=== PATIENT | female | born 1965 | race Caucasian/White ===

== ENCOUNTER 2024-04-22 09:38 | Outpatient (REF) | payer OTHER, SELFPAY ==
[2024-04-22 17:57] LABS: MANUAL DIFF FLAG NO
[2024-04-22 18:01] LABS: Basophils Percent Auto 0.9 % (0-2); Eosinophils Absolute Auto 0.1 X10*3/uL (0.0-0.4); Eosinophils Percent Auto 2.6 % (0-4); Hematocrit 39.1 % (37.0-47.0); Imm Gran Abs Auto 0.01 X10*3/uL (0.00-0.03); Imm Gran Pct Auto 0.2 % (0.0-0.4); Lymphocytes Absolute Auto 1.4 X10*3/uL (1.2-4.9); Mean Corpuscular HGB Conc 33.2 g/dl (31.0-35.0); Mean Corpuscular Hemoglobin 30.5 pg (27.0-33.0); Mean Corpuscular Volume 91.8 fL (80.0-98.0); Mean Platelet Volume 10.2 fL (9.4-12.3); Monocytes Absolute Auto 0.5 X10*3/uL (0.1-1.2); Monocytes Percent Auto 10.7 % (2-11); Neutrophils Absolute Auto 2.6 x10*3/uL (2.0-8.3); Neutrophils Percent Auto 56.6 % (45-73); Platelet Count 273 X10*3/uL (160-400); Red Blood Count 4.26 X10*6/uL (4.20-5.50); White Blood Count 4.7 X10*3/uL (4.8-10.8)
[2024-04-22 18:12] LABS: Alanine Aminotransferase 27 U/L (0-31); Aspartate Amino Transferase 31 U/L (5-31); C Reactive Protein 0.12 mg/dL (< or = 0.50); Estimated Glomerular Filt Rate > 60
[2024-04-22 18:51] LABS: Erythrocyte Sedimentation Rate 6 MM/HR (0-20)
[2024-04-23 04:26] LABS: HBS Num1 0.29 mIU/mL (0-7.99); HBc Num1 0.07 S/CO (0.00-0.79); HBsAGNum1 0.34 S/CO (0.00-0.99); Hepatitis B Core Antibody Nonreactive (Nonreactive); Hepatitis B Surface Antigen Negative (Negative); ~HepC Num1 0.07 S/CO (0.00-0.79); ~Hepatitis B Surface Antibody NONREACTIVE (Nonreactive); ~Hepatitis C Antibody Nonreactive (Nonreactive)
[2024-04-25 02:54] LABS: TS Negative Control Passed; TS Panel A 0; TS Panel B 2; TS Positive Control Passed; TSpotTB Negative (Negative)
== END 2024-04-22 09:39 | disposition home or self-care (01) ==
LOC: HO.HKASLDS 09:38
PROVIDERS: PCP Family Medicine; Visit Provider Internal Medicine Rheumatology
DX: M15.4 Erosive (osteo)arthritis (principal); Z79.899 Other long term (current) drug therapy; Z79.60 Long term (current) use of unspecified immunomodulators and immunosuppressants; Z11.59 Encounter for screening for other viral diseases; Z11.1 Encounter for screening for respiratory tuberculosis
CPT/HCPCS: 36415; 82565; 84450; 84460; 85025; 85652; 86140; 86481; 86704; 86706; 86803; 87340; 99212

== ENCOUNTER 2024-04-22 09:38 | Outpatient (AMB) | payer OTHER, SELFPAY ==
--- NOTE | 2024-04-22 09:44 | A.OFFVIS_ITS ---
Vital Signs 04/22/24 09:45 Height 5 ft 3 in Weight 178 lb BMI 31.5 BP 118/62 Blood Pressure Location Lt brachial Position Sitting Pulse 63 Pulse Source Pulse Oximeter Pulse Oximetry (%) 97 Oxygen Delivery Method Room Air Intake Visit Reasons: arthritis Intake Note: Patient presents for follow up on erosive osteoarthritis. Allergies No Known Allergies Allergy (Verified 04/22/24 09:47) HPI HPI arthritis: Details: Experiencing pain in her upper back and lower back. No radicular symptoms. She uses tizanidine 2 mg b.i.d. sometimes 5 days a week or sometimes 7 days a week it depends on her pain. She has intermittent pain in bilateral 2nd and 3rd toes. She experiences the pain as soon as she wakes up and puts her feet on the floor. She has now been wearing footwear at home to prevent foot pain. As soon as she takes Celebrex the pain subsides. No new joint swelling. [facility] Medical History (Updated 04/22/24 @ 22:06 by Wiley Damon MD) Erosive (osteo)arthritis Surgical History (Updated 04/22/24 @ 09:51 by Tara Sarabia CMA) S/P laparoscopic fundoplication Social History (Updated 04/22/24 @ 09:52 by Tara Sarabia CMA) Alcohol intake: current Alcohol intake frequency: other Comment: socially Patient Tobacco Use Status: Former Tobacco user Review of Systems Const All systems reviewed & are unremarkable except as noted in HPI and below Physical Exam Vital Signs: Last Vital Signs Pulse 63 04/22/24 09:45 BP 118/62 04/22/24 09:45 Pulse Ox 97 04/22/24 09:45 Oxygen Delivery Method Room Air 04/22/24 09:45 BMI result Body Mass Index 31.5 Const Other: General: Comfortable CVS: RRR Respiratory: clear to auscultation bilaterally. Good respiratory effort Skin: No lesions seen MSK: No tenderness of any joints in her hands. She has fusion left 3rd and 2nd right DIPJ. No synovitis. She is unable to make a full fist with her hands. Tender to palpate lumbar spinous process. Good lumbar flexion. Good cervical range of motion. Assessment & Plan Assessment & Plan (1) Erosive (osteo)arthritis: Comment: Pain is controlled on hydroxychloroquine. She has required the need to use prednisone for a few days when she has a flare. Code(s): M15.4 - Erosive (osteo)arthritis Category: Medical Plan: Continue hydroxychloroquine 300 mg daily. Requesting eye exam for hydroxychloroquine surveillance She will use prednisone 10 mg for 1-3 days for osteoarthritis flare. She currently has prescription at home. Return to clinic in 3 months (2) Other long filler cigar roller machine (current) drug therapy: Code(s): Z79.899 - Other custodial (current) drug therapy Category: Medical Plan: See above (3) Foot pain, bilateral: Comment: She is experiencing chronic pain in bilateral 2nd and 3rd toes of unclear etiology. Code(s): M79.671 - Pain in right foot; M79.672 - Pain in left foot Category: Medical Plan: X-ray bilateral feet ordered Return to clinic in 3 months (4) Low back pain: Comment: Chronic. Code(s): M54.50 - Low back pain, unspecified Category: Medical Qualifiers: Chronicity: chronic Back pain laterality: midline Sciatica presence: without sciatica Qualified Code(s): M54.50 - Low back pain, unspecified; G89.29 - Other chronic pain Plan: X-ray L-spine ordered to evaluate for spinal pathology contributing PT ordered for back strengthening Return to clinic 3 months (5) Cervicalgia: Comment: Due to myofascial strain. She has benefit on tizanidine 2 mg b.i.d. Code(s): M54.2 - Cervicalgia Category: Medical Plan: Continue tizanidine 2 mg b.i.d. Return to clinic in 3 months Orders: Orders T Spot TB Today M15.4 - Erosive (osteo)arthritis, Z79.899 - Other custodial (current) drug therapy Erythrocyte Sedimentation Rate Today M15.4 - Erosive (osteo)arthritis, Z79.899 - Other custodial (current) drug therapy Complete Blood Count Auto Diff Today Z79.60 - nursing home (current) use of unspecified immunomodulators and immunosuppressants Creatinine Today Z79.60 - intermission coordinator (current) use of unspecified immunomodulators and immunosuppressants XR foot RT 2V Today M79.671 - Pain in right foot, M79.672 - Pain in left foot XR lumbar spine 2-3V Today M54.50 - Low back pain, unspecified Hepatitis B,C Profile Today M15.4 - Erosive (osteo)arthritis, Z79.899 - Other long filler cigar roller machine (current) drug therapy C Reactive Protein Today M15.4 - Erosive (osteo)arthritis, Z79.899 - Other custodial (current) drug therapy Alanine Aminotransferase Today Z79.60 - intermission coordinator (current) use of unspecified immunomodulators and immunosuppressants Aspartate Amino Transferase Today Z79.60 - nursing home (current) use of unspecified immunomodulators and immunosuppressants XR foot LT 2V Today M79.671 - Pain in right foot, M79.672 - Pain in left foot PT Evaluation and Treatment Today M54.50 - Low back pain, unspecified Medications: New celecoxib (Celebrex) 200 mg PO BID 60 caps 2RF hydroxychloroquine 300 mg (1.5 x 200 mg) PO BID 60 tabs 11RF tizanidine 2 mg PO BID PRN 60 caps 5RF muscle pain Coding Level of Care Code Est Pt Level 4 (25074) Complex EM visit Add On G2211 Diagnoses Erosive (osteo)arthritis M15.4 Other custodial (current) drug therapy Z79.899 Foot pain, bilateral M79.671; M79.672 Chronic midline low back pain without sciatica M54.50; G89.29 Chronicity: chronic Back pain laterality: midline Sciatica presence: without sciatica Cervicalgia M54.2
[2024-04-22 09:45] VITALS: BP 118/62; PULSE 63; O2SAT 97; BMI 31.5
== END 2024-04-22 10:35 | disposition home or self-care (01) ==
PROVIDERS: PCP Family Medicine; Visit Provider Internal Medicine Rheumatology
DX: M15.4 Erosive (osteo)arthritis (principal); Z79.899 Other long term (current) drug therapy; M79.671 Pain in right foot; M79.672 Pain in left foot; M54.50 Low back pain, unspecified; G89.29 Other chronic pain; M54.2 Cervicalgia
CPT/HCPCS: 99214; G2211

== ENCOUNTER 2024-07-08 11:35 | Outpatient (REF) | payer OTHER, SELFPAY ==
--- OUTSIDE RECORDS SUMMARY | 2024-07-08 14:11 | XMS_ITS | Clinical Summary ---
Author Organization [employer] Address [address] [facility] [place] [address] Care Team Providers Care Equine Pharmacology Technician Name Role Phone Wiley Damon MD Unavailable Unavaila Elizabeth Figueroa DO Primary Care Provider Allergies No known active allergies Medications Tylenol Extra Strength 500 MG tablet TAKE 1 TABLET BY MOUTH EVERY 4 TO 6 HOURS NEEDED 2 Active biotin 1000 MCG tablet Take 1,000 mcg by mouth in the morning. Active celecoxib (CeleBREX) 200 MG capsule 1 capsule in the morning. Active hydroxychloroqu ine (Plaquenil) 200 MG tablet TAKE 1 AND 1/2 TABLETS BY MOUTH DAILY 2 Active Multiple Vitamins-Minera ls (Vitrum Senior) tablet Take 1 tablet by mouth in the morning. Active fluticasone (Flonase) 50 MCG/ACT nasal spray 1 spray in the morning. 9 Active Diclofenac Sodium 1 % gel APPLY 2 GRAMS TO AFFECTED AREA EVERY 4-6 HOURS 4 Active tiZANidine (Zanaflex) 2 MG tablet Take 2 mg by mouth if needed in the morning and at bedtime. 4 Active predniSONE (Deltasone) 10 MG tablet 4 Active predniSONE (Deltasone) 5 MG tablet TAKE 2 TABLETS BY MOUTH FOR 1 WEEK THEN 1 TABLET EVERY DAY. TAKE WITH FOOD. HOLD CELEBREX 4 Active LORazepam (Ativan) 0.5 MG tabletIndicatio ns:Anxiety Take 1 tablet (0.5 mg) by mouth if needed in the morning and at bedtime for anxiety for up to 28 days. 56 tablet 4 Active albuterol (2.5 MG/3ML) 0.083% nebulizer solutionIndicat ions:Chronic obstructive pulmonary disease, unspecified COPD type (CMS/HCC) Take 3 mL (2.5 mg) by nebulization if needed in the morning, at noon, in the evening, and at bedtime for wheezing or shortness of breath. 120 mL 4 Active traMADol (Ultram) 50 MG tablet Take 50 mg by mouth. 4 Active Nirmatrelvir&Ri tonavir 300/100 (Paxlovid, 300/100,) 20 x 150 MG & 10 x 100MG tablet therapy packIndications :2019 novel coronavirus disease (COVID-19) Take 1 Dose by mouth 2 times daily. 30 each 4 Active Additional Information Patient not taking.Reported on 06/24/2024 albuterol 108 (90 Base) MCG/ACT inhalerIndicati ons:Bronchitis INHALE 2 PUFFS BY MOUTH EVERY 6 HOURS NEEDED FOR WHEZING 8.5 g 2 5 Active Active Problems Problem Noted Date Diagnosed Date COVID-19 03/17/2024 Assessment & Plan (03/17/2024 6:24 PM EST): COVID home test positive this a.m. after attending concert in [place] on Saturday (3 days ago), feverish feeling/chills/fatigue but no n/v/d and wants Paxlovid - states worked well for her last time had Covid. No contraindications. No current COPD exacerbation. E rx sent and states her son will seed cone picker for her this evening. Akilah agrees to f/up and if symptoms progress to severe or do not improve to ER (has COPD dx but not currently needing her rescue inhaler nor neb treatments - aware to use as well as rest, hydration gargles. Encounter to establish care 12/31/2022 Assessment & Plan (12/31/2022 9:59 AM EDT): Akilah was seen today to establish care. She states she has been doing ok. She continues with ongoing pain due to OA, mostly in her hands, back, and left shoulder; she states the rainy weather has not been helping either. She states her diet is ok and her activity level is lower than it should be, she knows she should be doing more for both diet and nutrition. She states she went through menopause appx 10y ago. She does not remember her last Pap, we will obtain another one, likely at the next visit. Dr Diaz, Pulmonology follows her closely as well as GI. GI tracks her colonoscopies. She has labwork that needs to be completed from July. She states she did not fast this morning but will get to do it soon. Primary osteoarthritis, other specified site Overview (10/24/2023[facility] Erosive [facility] hands, R IP joint recurrent joint swelling, failed intraarticular joint cortisone injection, short response with prednisone. NSAID to be changed- stop celebrex, start diclofenac 50mg bid w/ food. Continue HCQ 300mg every day. Baseline eye exam 10/2019 VF. Last eye exam 08/28. OCT and visual potter normal. Chronic upper backache- controlled PT exercises and tizanidine 2mg prn. Labs ordreed for drug monitoring and xrays. Fu 3 mo. Assessment & Plan (12/31/2022 9:59 AM EDT): Continues to endorse pain throughout; mostly hands, back, and left shoulder. Continues with Tramadol as needed; she states she does not need it often. Continues with Tylenol as well. She states that she knows she needs to eat better and walk/do more activities. Adenomatous polyp of colon 08/27/2022 Irritable bowel syndrome with constipation 08/27 Overweight 08/27/2022 Hyperlipidemia 08/27/2022 Prediabetes 08/27/2022 Mood disorder 08/27/2022 Anxiety 07/09/2022 Allergic rhinitis 07/09/2022 Assessment & Plan (12/31/2022 9:51 AM EDT): Continues to endorse allergic symptoms. Continues with Flonase daily. Chronic obstructive pulmonary disease 07/09/2022 Former smoker 07/09/2022 Encounters Date Type Department Care Team Description 06/24/2024 3:00 PM EDT Office Visit [place] [facility] [address] [place] [address] Nohemy Downey, OD Superficial punctate keratitis of both eyes (Primary Dx); Posterior vitreous detachment of right eye; Retinal cyst of right eye; Vitreomacular adhesion of left eye 06/19/2024 Population Health Risk Score Community [facility] ([facility] Department [address] [place] [address] [phone] Provider, Population Health Generic 05/10/2024 Refill [facility] MED[facility] [address] [place] [address] King Elizabeth, Bronchitis 04/28/2024 Orders Only [facility] [address] [place] [address] ProviderDayanara MD 04/26/2024 Orders Only [facility] [address] [place] [address] Provider, MD Dayanara from Last 3 Months Immunizations Name Administration Dates Next Due INFLUENZA INJECTABLE QUADRIV ALANT CCIIV4 MDCK Multi-dose vial 02/19/2020 Influenza injectable quadriv alent preservative free 12/05/2022,02/23/2022 Influenza, IIV3, injectable 12/16/2020,1 ,03/05/2018,2015,12/19/2010,03/05/2007 Influenza, Injectable, MDCK, preservative free 12/25/2023 Influenza, Split (incl. jany fied surface antigen) 04/27/2013 Moderna Covid-19 Vaccine 12+ 08/11/2020 TD (adult), 2 Lf tetanus tox oid, preservative free, adsorbed 12/16/2020,11/20/2005 Tdap 04/27/2013,11/23/2010 Zoster, Recombinant 03/27/2023,12/05/2022,2021 Family History Medical History Relation Name Comments Coronary artery disease Father Cataracts Mother Ulcerative colitis Mother Mother: ? UC Breast cancer Mother's Sister Maternal Au nt: breast cancer in her 50s, diagnosed with Breast cancer Rheum arthritis Other Heart failure Paternal Grandfather Anxiety disorder Son Colon cancer Neg Hx of suicide. paternal grandmother with ?RA maternal half sister w/RA Relation Name Status Comments Father Mother Mother's Sister Other Paternal Grandfather Son Social History Tobacco Use Types Packs/Day Years Used Date Smoking Tobacco: Former Cigarettes 1 - 03/10/2021 Passive Smoke Exposure: Past Smokeless Tobacco: Never Tobacco Cessation:Counseling Given: No Alcohol Use Standard Drinks/Week Comments Yes 0 (1 standard drink = 0.6 oz pur e alcohol) once in a while Alcohol Answer Date Recorded How often do you have a drink containing alcohol ? 0 01/20/2024 How many drinks containing a lcohol do you have on a typical day when you are drinking? 0 01/20/2024 How often do you have six or more drinks on one occasion? 0 01/20/2024 Depression Answer Date Recorded Patient Health Questionnaire-9 Score 21 07/06/2022 Housing Stability Answer Date Recorded What is your housing situation today? I have oleg smith 01/20/[address] you li ve. Do you have problems with any of the following? None of the above 01/20/2024 Food Insecurity Answer Date Recorded Within the past 12 months, y ou worried that your food would run out before you got money to buy more: Never True 01/20/2024 Within the past 12 months,th e food you bought just didn't last and you didn't have enough money to get more: Never True Transportation Answer Date Recorded In the past 12 months, has l ack of transportation kept you from medical appts, meetings, work or from getting things needed for daily living? No 01/20/2024 Intimate Partner Violence Answer Date R ecorded Within the last year, have y ou been afraid of your partner or ex-partner? 2 01/20/2024 Within the last year, have y ou been humiliated or emotionally abused in other ways by your partner or ex-partner? 2 Within the last year, have y ou been kicked, hit, slapped, or otherwise physically hurt by your partner or ex-partner? 2 01/20/2024 Within the last year, have y ou been raped or forced to have any kind of sexual activity by your partner or ex-partner? 2 01/20/2024 Utilities Answer Date Recorded In the past 12 months, has t he electric, gas, oil or water company threatened to shut off services in your home? No 01/20/2024 Depression Answer Date Recorded Patient Health Questionnaire-2 Score 0 01/20/2024 Internet Access Answer Date Recorded Internet Access Q1 Yes 01/20/2024 Internet Access Q2 Not on file 01/20/2024 Education Answer Date Recorded What is the highest level of school you have completed or the highest degree you have received? 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 Not on file Not on file Not on file Last Filed Vital Signs Vital Sign Reading Time Taken Comments Blood Pressure 118/82 01/20/2024 8:20 AM EDT Pulse 71 01/20/2024 8:20 AM EDT Temperature 36.3 ??C (97.3 ??F) 01/20/2024 8:20 AM ED T Respiratory Rate 16 07/06/2022 11:34 AM EDT Oxygen Saturation 95% 01/20/2024 8:20 AM EDT Inhaled Oxygen Concentration - - Weight 78.3 kg (172 lb 9.6 oz) 01/20/2024 8:20 A M EDT Height 161.3 cm (5' 3.5 ) 01/20/2024 8:20 AM EDT Body Mass Index 30.1 01/20/2024 8:20 AM EDT Plan of Treatment Upcoming Encounters Date Type Department Care Team (Late st Contact Info) Description 08/27/2024 10:00 AM EDT Office Visit [place] [facility] [address] [place] [address] Nohemy Downey OD [address] [place] [address] Health Maintenance Due Date Last Done Comments CT Colonography 1966 FIT DNA/Cologuard 1966 FIT 1966 FOBT 1966 HIV Screening 1966 Sigmoidoscopy 1966 Hepatitis A Vaccines (1 of 2 - Risk 2-dose series) 1985 Hepatitis B Vaccines (1 of 3 - 19+ 3-dose series) 1985 Pneumococcal Vaccine: 50+ Years (1 of 2 - PCV) 1985 HPV/Cotest 1996 Dental X-Ray: Full Mouth 06/04/2022 020, 03/01/2014, 07/17/2005 Dental Oral Exam 04/28/2023 10/25/2022, , 10/20/2021, Additional history exists Dental Prophylaxis 04/28/2023 10/25/2022, 0 04/26/2022, 10/20/2021, Additional history exists Dental X-Ray: Bitewings 10/27/2023 10/26/19 23, 10/20/2021, 06/03/2019, Additional history exists COVID-19 Vaccine ( season) 2023 03/06/2023, 02/23/2022, 06/23/2021, Additional history exists Depression Monitoring (PHQ-9) 07/20/2024 01/20/2024, 07/06/2022 Cervical Cancer Screening 08/22/2024 Pap Smear 08/22/2024 08/22/2021 Alcohol/Substance Use Screening 01/19/2025 01/20/2024 Depression Screening 01/19/2025 01/20/2024, 07/07/19 23 Diabetes: Hemoglobin A1C 01/19/2025 024, 02/23/2022, 08/07/2021, Additional history exists SDOH Screening 01/19/2025 01/20/2024 Tobacco Screening 06/24/2025 06/24/2024 Mammogram 02/17/2026 02/18/2024, 06/0 10/2021, 09/12/2021, Additional history exists Colonoscopy 11/02/2029 11/03/2019, 10/07, 06/18/2016 Colorectal Cancer Screening 11/02/2029 DTaP/Tdap/Td Vaccines (4 - Td or Tdap) 12/16/2030 12/16/2020, 04/27/2013, 11/23/2010, Additional history exists RSV Patients and Patients Aged 60 years or older (1 - 1-dose 75+ series) 2041 Hepatitis C Screening Completed 10/15/2016 Zoster Vaccines Completed 03/27/2023, 11/08, 06/23/2021 Influenza Vaccine Completed 12/25/2023, , 02/23/2022, Additional history exists HIB Vaccines Aged Out No longer eligi ble based on patient's age to complete this topic HPV Vaccines Aged Out No longer eligi ble based on patient's age to complete this topic IPV Vaccines Aged Out No longer eligi ble based on patient's age to complete this topic Meningococcal Vaccine Aged Out No peter luz elena eligible based on patient's age to complete this topic RSV under 20 months Aged Out No longe r eligible based on patient's age to complete this topic Rotavirus Vaccines Aged Out No longer eligible based on patient's age to complete this topic Procedures Procedure Name Priority Date/Time Associated Diagnosis Comments OCT, RETINA - OU - BOTH EYES Routine 06/24/2024 Vitreomacular adhesion of left eye T-SPOT(R).TB Routine 04/22/2024 6:51 PM EST CREATININE, SERUM Routine 04/22/2024 8:4 6 AM EST AST Routine 04/22/2024 8:46 AM EST ALT Routine 04/22/2024 8:46 AM EST C-REACTIVE PROTEIN Routine 04/22/2024 8: 46 AM EST CBC WITH AUTO DIFFERENTIAL Routine 04/22/2024 8:46 AM EST SED RATE BY MODIFIED WESTERGREN Routine 04/22/2024 8:46 AM EST BI MAMMOGRAM SCREENING TOMOSYNTHESIS BILATERAL Routine 02/18/2024 10:58 AM EST POCT GLYCOSYLATED HEMOGLOBIN (HGB A1C) Routine 01/20/2024 8:45 AM EDT Prediabetes Full PROPHYLAXIS - ADULT Routine 10/25/2022 2:00 PM EDT BITEWINGS - 4 RADIOGRAPHIC IMAGES Routine 10/25/2022 2:00 PM EDT PERIODIC ORAL EVALUATION - ESTABLISHED PATIENT Routine 10/25/2022 2:00 PM EDT HM PAP/HPV Routine 08/22/2021 HM COLONOSCOPY Routine 11/03/2019 INTRAORAL - COMPLETE SERIES OF RADIOGRAPHIC IMAGES Routine 06/03/2019 12:00 AM EST HEPATITIS C ANTIBODY (EXTERNAL RESULTS ONLY) Routine 10/15/2016 1:46 PM EDT from Last 3 Months or Most Recently Relevant to Health Maintenance Results * OCT, Retina - OU - Both Eyes (06/24/2024) Impressions CooperhuyNohemy, OD - 06/24/2024 Right eye (OD): Complete PVD. 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 New finding compared to previous scan. Left eye (OS): Vitreomacular traction at fovea without any disruption to foveal contour. Progressed from previous. Result [facility] Nohemy Downey OD OPHTH TOMOGRAPHY Final Result * T-SPOT??.TB (04/22/2024 6:51 PM EST) Result [facility] Provider MD LAB BLOOD ORDERABLES Liza l Result * Creatinine, Serum (04/22/2024 8:46 AM EST) Blood Result [facility] Provider MD LAB BLOOD ORDERABLES Liza l Result * CBC auto differential (04/22/2024 8:46 AM EST) Blood Venous blood specimen / Unknown Result [facility] Provider MD LAB BLOOD ORDERABLES Liza l Result * Sed Rate by Modified Westergren (04/22/2024 8:46 AM EST) Blood Venous blood specimen / Unknown Result [facility] Provider MD LAB BLOOD ORDERABLES Liza l Result * C-reactive Protein (04/22/2024 8:46 AM EST) Blood Venous blood specimen / Unknown us Historical Provider LAB BLOOD ORDERABLES Liza l Result * ALT (04/22/2024 8:46 AM EST) Blood Venous blood specimen / Unknown Historical Provider LAB BLOOD ORDERABLES Liza l Result * AST (04/22/2024 8:46 AM EST) Blood Venous blood specimen / Unknown Historical Provider LAB BLOOD ORDERABLES Liza l Result * BI Mammogram Screening Tomosynthesis Bilateral (02/18/2024 10:58 AM EST) Anatomical Region Laterality Modality Breast Bilateral Mammography 02/18/2024 10:5 8 AM EST Narrative 02/18/2024 5:07 PM EST PROCEDURE: MM Digital Mammo Screening INDICATION: Screening for breast cancer. No known palpable abnormalities. COMPARISON: A few prior comparison studies, most recent on 09/12/2021 TECHNIQUE: Full-field digital CC and MLO 3D tomosynthesis images of both breasts were acquired. Computer-aided detection (CAD) was utilized in the interpretation of this study. DENSITY: There are scattered areas of fibroglandular density. FINDINGS: No suspicious masses, suspicious microcalcifications, or areas of architectural distortion are seen in either breast to suggest malignancy. IMPRESSION: No mammographic evidence of malignancy. RECOMMENDATION: Annual mammographic screening BI-RADS: 1 (Negative) Lay letter mailed to patient WSN: [id number] Ordering Physician: Alejandra Steen Dictated By: ?Julia Calero MD Dictated Date/Time: ?02/18/24 5:04 pm Reviewed By: ?Julia Calero MD Signed By: ? Julia Calero MD Signed Date/Time: ? 02/18/24 5:04 pm Transcribed By: ? CSB Plant Electrician Date/Time: ? 02/18/24 5:01 pm Birads: Procedure Note Rich, Image - 02/18/2024 PROCEDURE: MM Digital Mammo Screening INDICATION: Screening for breast cancer. No known palpableabnormalities. COMPARISON: A few prior comparison studies, most recent on 09/12/2021 TECHNIQUE: Full-field digital CC and MLO 3D tomosynthesis images of bothbreasts were acquired. Computer-aided detection (CAD) was utilized in theinterpretation of this study. DENSITY: There are scattered areas of fibroglandular density. FINDINGS: No suspicious masses, suspicious microcalcifications, or areasof architectural distortion are seen in either breast to suggestmalignancy. IMPRESSION: No mammographic evidence of malignancy. RECOMMENDATION: Annual mammographic screening BI-RADS: 1 (Negative) Lay letter mailed to patient WSN: [id number] Ordering Physician: Alejandra Steen Dictated By: Julia Calero MD Dictated Date/Time: 02/18/24 5:04 pm Reviewed By: Julia Calero MD Signed By: Julia Calero MD Signed Date/Time: 02/18/24 5:04 pm Transcribed By: GABRIEL Plant Electrician Date/Time: 02/18/24 5:01 pm Birads: Alejandra Steen COMMODITIES CLERK IMG BI PROCEDURES Liza l Result * (ABNORMAL) POCT glycosylated hemoglobin (Hgb A1c) (01/20/2024 8:45 AM EDT) Hemoglobin A1C 5.7 4.0 - 6.0 % Blood Capillary blood specimen / Unknown 01/20/2024 8:45 AM EDT Elizabeth Estrada DO POINT OF CARE TEST ENTER/EDIT ORDERABLES Final Result * Pap Smear (08/22/2021) Pap smear Pap negative, HPV negative Historical Provider HEALTH MAINTENANCE Final Result * (ABNORMAL) Colonoscopy (11/03/2019) Colonoscopy Abnormal(A ) Normal Historical Provider HEALTH MAINTENANCE Final Result * Hepatitis C Antibody (10/15/2016 1:46 PM EDT) Hepatitis C Antibody Nonreactive Blood 10/15/2016 1:46 PM EDT Historical Provider POINT OF CARE TEST ENTER/ EDIT ORDERABLES Final Result from Last 3 Months or Most Recently Relevant to Health Maintenance Insurance [facility] Care Teams Equine Pharmacology Technician Relationship Specialty Start Date End Date Elizabeth Estrada DO [address] [place] [address] PCP - General Family Medicine 12/06/23 Wiley Damon MD [address] [place] [phone] Rheumatology 10/23/23
--- OUTSIDE RECORDS SUMMARY | 2024-07-08 14:11 | XMS_ITS | Encounter Summary ---
Author Organization [employer] Address [address] [address] [place] [address] Care Team Providers Care Lead Network Engineer Name Role Phone Wiley Damon MD Unavailable Unavaila ble Elizabeth Estrada DO Primary Care Provider [phone] Encounter Details Date Type Department Care Team (Late st Contact Info) Description 01/25/2024 Orders Only [place] [facility] [address] [place] [address] Elizabeth Estrada DO [address] [place] [address] Social History Tobacco Use Types Packs/Day Years Used Date Smoking Tobacco: Former Cigarettes 1 - 03/10/2021 Smokeless Tobacco: Never Alcohol Use Standard Drinks/Week Comments Yes 0 [...] received? 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 Not on file Not on file Not on file documented as of this encounter Plan of Treatment Upcoming Encounters Date Type Department Care Team (Late st Contact Info) Description 08/27/2024 10:00 AM EDT Office Visit [place] [facility] [address] [place] [address] Nohemy Downey OD [address] [place] [address] documented as of this encounter Procedures Procedure Name Priority Date/Time Associated Diagnosis Comments BI MAMMOGRAM SCREENING TOMOSYNTHESIS BILATERAL Routine 02/18/2024 10:58 AM EST CBC WITH AUTO DIFFERENTIAL Routine 10/17/2023 8:59 AM EDT documented in this encounter Results * BI Mammogram Screening Tomosynthesis Bilateral (02/18/2024 [...] (Negative) Lay letter mailed to patient WSN: [id number] Ordering Physician: Alejandra Steen Dictated By: ?Julia Calero MD Dictated Date/Time: ?02/18/24 5:04 pm Reviewed By: ?Julia Calero MD Signed By: ? Julia Calero MD Signed Date/Time: ? 02/18/24 5:04 pm Transcribed By: ? CSB Treating Machine Operator Date/Time: ? 02/18/24 5:01 pm Birads: Procedure Note Donotuseinterpreter, Image - 02/18/2024 PROCEDURE: MM Digital Mammo [...] (Negative) Lay letter mailed to patient WSN: [id number] Ordering Physician: Alejandra Steen Dictated By: Julia Calero MD Dictated Date/Time: 02/18/24 5:04 pm Reviewed By: Julia Calero MD Signed By: Julia Calero MD Signed Date/Time: 02/18/24 5:04 pm Transcribed By: GABRIEL Treating Machine Operator Date/Time: 02/18/24 5:01 pm Birads: Alejandra Steen SPRINKLER HELPER IMG BI PROCEDURES Liza l Result * CBC auto differential (10/17/2023 8:59 AM EDT) Blood Venous blood specimen / Unknown us Elizabeth Estrada DO LAB BLOOD ORDERABLES Final Res ult documented in this encounter Visit Diagnoses Not on filedocumented in this encounter Additional Health Concerns Assessment Noted Time PHQ-9 Depression Total Score: 21 07/06/ 023 11:43 AM EDT documented as of this encounter Care Teams Lead Network Engineer Relationship Specialty Start Date End Date Elizabeth Estrada DO [address] [place] [address] PCP - General Family Medicine 12/06/23 Wiley Damon MD [address] [place] [phone] Rheumatology 10/23/23 documented as of this encounter
--- OUTSIDE RECORDS SUMMARY | 2024-07-08 14:11 | XMS_ITS | Encounter Summary ---
Author Organization [employer] Address [address] [facility] 7t [place] [address] Care Team Providers Care Vice President Sales Name Role Phone Wiley Damon MD Unavailable Unavaila ble Elizabeth Estrada DO Primary Care Provider [phone] Reason for Visit * Reason Onset Date Comments Flu Symptoms 03/30/2024 Covid positive 03/30/2024 Encounter Details Date Type Department Care Team (Late st Contact Info) Description 03/30/2024 Telephone [facility] MEDICAL [address] [place] [address] Elizabeth Estrada DO [address] [place] [address] Flu Symptoms; Covid positive Social History Tobacco Use Types Packs/Day Years Used Date Smoking Tobacco: Former Cigarettes 1 - 03/10/2021 Passive Smoke Exposure: Past Smokeless Tobacco: Never Alcohol Use Standard Drinks/Week [...] t he electric, gas, oil or water [facility] threatened to shut off services in your [...] Start Date Job End Date 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 Estrada at 1045. + Covid. * Telephone Encounter - Therese Kemp - 03/30/2024 8:02 AM EST Patient calling reporting sick symptoms. Symptom onset date: 03/29 Symptoms include: Fever or chills, cough, shortness of breath, fatigue, new loss of taste or smell,and congestion or runny nose Patient denies sick contacts. Testing performed at home: covid test: positive on 03/30 Telehealth visit scheduled for 03/30 with [facility]. Telephone encounter routed to nursing triage for review; nursing to review and sign encounter if timeline is appropriate or modify plan if clinically necessary. Preferred phone number confirmed, ending in [phone]. If necessary, patient confirms that it is ok fornursing to leave detailed voicemail on this number. documented in this encounter Plan of Treatment Upcoming Encounters Date Type Department Care Team (Late st Contact Info) Description 08/27/2024 10:00 AM EDT Office Visit [place] [facility] OPTOMETRY [address] [place] [address] Nohemy Downey OD [address] [place] [address] documented as of this encounter Visit Diagnoses Not on filedocumented in this encounter Additional Health Concerns Assessment Noted Time PHQ-9 Depression Total Score: 21 023 11:43 AM EDT documented as of this encounter Care Teams Vice President Sales Relationship Specialty Start Date End Date Elizabeth Estrada DO [address] [place] [address] PCP - General Family Medicine 12/06/23 Wiley Damon MD [address] [place] [phone] Rheumatology 10/23/23 documented as of this encounter
--- OUTSIDE RECORDS SUMMARY | 2024-07-08 14:11 | XMS_ITS | Patient Health Record ---
Author Organization [facility] Address [address] [place] [phone] Care Team Providers Care Pourer Metal Name Role Phone Eliane Bourne Primary Care Provider Unavaila Song Ramires Unavailable [phone] Allergies No Known Allergies Reason For Referral No Information Medications Medication SIG (Take, Route, Frequency, Duration) Notes Start Date End Date Status Baclofen 10 MG TAKE 1 TABLET BY MOUTH EVERY NIGHT AT BEDTIME Oral for 30 Active Incruse Ellipta 62.5 MCG/ACT Inhalation for 30 Active Albuterol Sulfate HFA 108 (90 Base) MCG/ACT INHALE 2 PUFFS BY MOUTH EVERY 6 HOURS NEEDED FOR WHEEZING Inhalation for 25 J40,Unavailab le Active Hydroxychloroquine Sulfate 200 MG Oral for 90 Active Celecoxib 200 MG Oral for 90 A ctive Flovent HFA 110 MCG/ACT Inhalation for 30 Active Immunizations Vaccine Route Administration Date Status Comme nts Influenza Unknown 12/18/2022 Administered Social History Tobacco Use: Social History Observation Description Date Details (start date - stop date) Former Smoker NA - NA Tobacco Use/Smoking Question Answer Notes Patient is a former smoker Alcohol Screen Question Answer Notes Did you have a drink contain ing alcohol in the past year? Yes How often did you have a dri nk containing alcohol in the past year? 2 to 4 times a month (2 points) How many drinks did you have on a typical day when you were drinking in the past year? 3 or 4 drinks (1 point) How often did you have 6 or more drinks on one occasion in the past year? 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 Problem 04662369 Constipation, unspecified constipation type (K59.00) Active confirmed Plan Of Treatment No Information Insurance Providers Payer Name Payer Address Payer Phone Subscriber Number Group Number Insured Name Patient Relationship to Insured Coverage Start Date Coverage End Date MEDICARE OF [place] [address] BILL FERMIN [address] [id number] CESARIO SCHWAB Self - patient is the insured MEDICAID OF [facility] [address] [place] [address] [id number] CESARIO SCHWAB Self - patient is the insured Medical (General) History Medical History History ICD Code Denies NV,DM,CVA,Lung disease,renal dise ase Erosive osteoarthritis COPD 3 negative colonoscopies Curiel's esophagus/GERD Constipation Surgical History Surgery Date(Month/Year) Fundoplication hiatal hernia Dr. Edvin porter 2019
--- OUTSIDE RECORDS SUMMARY | 2024-07-08 14:11 | XMS_ITS ---
Author Organization [facility] Address [address] [place] [address] Care Team Providers Care Icu Tech Name Role Phone Eliane Bourne Primary Care Provider Song Sandoval [phone] REASON FOR VISIT cancel appt Encounters Encounter Location Date Provider Diagnosis [facility] [address] [place] [address] 07/01/2023 Song Villar Plan Of Treatment No Information Progress Notes * ZAHEERSHANDA RosalesFAMDOB: [birth year] (58 yo F)Acc No.[id number]:07/01/2023 Patient:?CESARIO SCHWAB :1965???Age:58 Y???Sex:Female Address:[address] [place] [address] , [place], [address] * true * Date:? Generated for Printi paulina/Lee/eTransmitting on:?07/08/2024 02:10 PM EDT
--- OUTSIDE RECORDS SUMMARY | 2024-07-08 14:11 | XMS_ITS ---
Author Organization [facility] Address [address] [place] [phone] Care Team Providers Care Parent Coach Name Role Phone Eliane Bourne Primary Care Provider Song Sandoval [phone] REASON FOR VISIT Patient presents today for IBS Encounters Encounter Location Date Provider Diagnosis [facility] [address] [facility] [address] [place] [phone] 07/02/2023 Song Villar Plan Of Treatment No Information Progress Notes * CESARIO SCHWABDOB: [birth year] (59 yo F)Acc No.[id number]:07/02/2023 Progress Notes Patient:?CESARIO SCHWAB Provider:?Song Villar MD :1965???Age:58 Y???Sex:Female D ate:07/02/2023 Address:[address] [place], [place] [id number] Pcp:Lidya Pelayo Subjective: * Chief Complaints: * ???1. Patient presents today for IBS. * Medical History:? Objective: * Vitals:? Assessment: Plan: * Treatment: * * The named appointment provid er may or may not be the originator of this progress note, and it is not deemed complete until electronically signed by the appointment provider. Sign off status: Pending * Provider:?Song Villar MD Date:? 024 Generated for Jci ng/Fajadeng/eTransmitting on:?07/08/2024 02:10 PM EDT
--- OUTSIDE RECORDS SUMMARY | 2024-07-08 14:11 | XMS_ITS | Encounter Summary ---
Author Organization [employer] Address [address] [facility] 7t [place] [address] Care Team Providers Care Car Body Inspector Name Role Phone Anjelica Harris Primary Care Provider Un available Eliane Lora Primary Care Provider Wiley Winters MD Unavailable Elizabeth Gu DO Primary Care Provider [phone] Encounter Details Date Type Department Care Team (Latest Contact Info) Description 06/03/2019 Abstract [facility] Dental, Provider, DDS Social History Tobacco Use Types Packs/Day Years Used Date Smoking Tobacco: Never Assessed Comments Unknown Sex and Gender Information Value Date Recorded Sex Assigned at Female 02/23/2022 9:14 AM EST Legal Sex Female 5:35 PM EDT Gender Identity Female 02/23/2022 9:14 AM EST Sexual Orientation Choose not to disclose 2022 3:13 PM EST documented as of this encounter Plan of Treatment Upcoming Encounters Date Type Department Care Team (Late st Contact Info) Description 08/27/2024 10:00 AM EDT Office Visit [place] [facility] OPTOMETRY [address] [place] [address] Nohemy Downey OD [address] [place] [address] documented as of this encounter Visit Diagnoses Not on filedocumented in this encounter Care Teams Car Body Inspector Relationship Specialty Start Date End Date Anjelica Harris FNP PCP - General Family Medicine 02/23/22 12/30/22 Eliane Lora PA PCP - General Family Medicine 12/31/22 12/05/23 Elizabeth Estrada DO [address] [place] [address] PCP - General Family Medicine 12/06/23 Wiley Damon MD [address] [place] [address] Rheumatology 10/23/23 documented as of this encounter
--- OUTSIDE RECORDS SUMMARY | 2024-07-08 14:11 | XMS_ITS | Encounter Summary ---
Author Organization [employer] Address [address] [facility] [address] [facility] [address] 7[address] [place] [address] Care Team Providers Care Carpenter'S Assistant Name Role Phone Sophialilly Anjelicavasyl CURIEL Primary Care Provider Un available Eliane Lora Primary Care Provider Wiley Winters MD Unavailable Elizabeth Gu DO Primary Care Provider [phone] Encounter Details Date Type Department Care Team (Late st Contact Info) Description 07/31/2022 Abstract [place] [facility] MEDICAL [address] [place] [address] Hyun Mace, TELETYPE OR VARITYPE KEYBOARD OPERATOR [address] [place] [address] Social History Tobacco Use Types Packs/Day Years Used Date Smoking Tobacco: Former Cigarettes 1 - 03/10/2022 Smokeless Tobacco: Never Alcohol Use Standard Drinks/Week Comments Never 0 (1 standard drink = 0.6 oz pur e alcohol) Depression Answer Date Recorded Patient Health Questionnaire-9 Score 21 07/06/2022 Depression Answer Date Recorded Patient Health Questionnaire-2 Score 3 07/06/2022 Comments Unknown Sex and Gender Information Value Date Recorded Sex Assigned at Female 02/23/2022 9:14 AM EST Legal Sex Female 5:35 PM EDT Gender Identity Female 02/23/2022 9:14 AM EST Sexual Orientation Choose not to disclose 2022 3:13 PM EST Occupation Industry Job Start Date Job End Date 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 No / Unsure 07/31/2022 5:24 PM EDT documented as of this encounter Plan of Treatment Upcoming Encounters Date Type Department Care Team (Late st Contact Info) Description 08/27/2024 10:00 AM EDT Office Visit [place] [facility] OPTOMETRY [address] [place] [address] Nohemy Downey OD [address] [place] [address] documented as of this encounter Visit Diagnoses Not on filedocumented in this encounter Additional Health Concerns Assessment Noted Time PHQ-9 Depression Total Score: 21 023 11:43 AM EDT documented as of this encounter Care Teams Carpenter'S Assistant Relationship Specialty Start Date End Date Anjelica Harris FNP PCP - General Family Medicine 02/23/22 12/30/22 Eliane Lora PA PCP - General Family Medicine 12/31/22 12/05/23 Elizabeth Estrada DO [address] [place] [address] PCP - General Family Medicine 12/06/23 Wiley Damon MD [address] [place] [address] Rheumatology 10/23/23 documented as of this encounter
--- OUTSIDE RECORDS SUMMARY | 2024-07-08 14:11 | XMS_ITS | Encounter Summary ---
Author Organization [employer] Address 75 [facility] 7t [place] [address] Care Team Providers Care Warp Drawer Name Role Phone Anjelica Harris Primary Care Provider Un available Eliane Lora Primary Care Provider Wiley Winters MD Unavailable Elizabeth Gu DO Primary Care Provider [phone] Encounter Details Date Type Department Care Team (Latest Contact Info) Description 10/20/2021 Abstract [facility] Dental, Provider, DDS Social [...] Description 08/27/2024 10:00 AM EDT Office Visit [place] [facility] OPTOMETRY [address] [place] [address] Nohemy Downey OD [address] [place] [address] documented as of this encounter Visit Diagnoses Not on filedocumented in this encounter Care Teams Warp Drawer Relationship Specialty Start Date End Date Anjelica Harris FNP PCP - General Family Medicine 02/23/22 12/30/22 Eliane Lora PA PCP - General Family Medicine 12/31/22 12/05/23 Elizabeth Estrada DO [address] [place] [address] PCP - General Family Medicine 12/06/23 Wiley Damon MD [address] [place] [address] Rheumatology 10/23/23 documented as of this encounter
--- OUTSIDE RECORDS SUMMARY | 2024-07-08 14:11 | XMS_ITS | Encounter Summary ---
Author Organization [employer] Address [address] 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 Not on file Not on file Not on file documented as of this encounter Plan of Treatment Upcoming Encounters Date Type Department Care Team (Late st Contact Info) Description 08/27/2024 10:00 AM EDT Office Visit [place] [facility] OPTOMETRY [address] [place] [address] Nohemy Downey OD [address] [place] [address] documented as of this encounter Procedures Procedure Name Priority Date/Time Associated Diagnosis Comments CREATININE, SERUM Routine 04/22/2024 8:4 6 AM EST CBC WITH AUTO DIFFERENTIAL Routine 04/22/2024 8:46 AM EST SED RATE BY MODIFIED WESTERGREN Routine 04/22/2024 8:46 AM EST C-REACTIVE PROTEIN Routine 04/22/2024 8: 46 AM EST ALT Routine 04/22/2024 8:46 AM EST AST Routine 04/22/2024 8:46 AM EST documented in this encounter Results * Creatinine, Serum (04/22/2024 8:46 AM EST) Blood Result [facility] Provider MD LAB BLOOD ORDERABLES Liza l Result * AST (04/22/2024 8:46 AM EST) Blood Venous blood specimen / Unknown Result [facility] Provider LAB BLOOD ORDERABLES Liza l Result * ALT (04/22/2024 8:46 AM EST) Blood Venous blood specimen / Unknown Result [facility] Provider LAB BLOOD ORDERABLES Liza l Result * C-reactive Protein (04/22/2024 8:46 AM EST) Blood Venous blood specimen / Unknown Result [facility] Provider MD LAB BLOOD ORDERABLES Liza l Result * CBC auto differential (04/22/2024 8:46 AM EST) Blood Venous blood specimen / Unknown Result [facility] Provider LAB BLOOD ORDERABLES Liza l Result * Sed Rate by Modified Westergren (04/22/2024 8:46 AM EST) Blood Venous blood specimen / Unknown Result [facility] Provider LAB BLOOD ORDERABLES Liza l Result documented in this encounter Visit Diagnoses Not on filedocumented in this encounter Additional Health Concerns Assessment Noted Time PHQ-9 Depression Total Score: 21 023 11:43 AM EDT documented as of this encounter Care Teams Asset Management Lead Relationship Specialty Start Date End Date Elizabeth Estrada DO [address] [place] [address] PCP - General Family Medicine 12/06/23 Wiley Damon MD [address] [place] [address] Rheumatology 10/23/23 documented as of this encounter
--- OUTSIDE RECORDS SUMMARY | 2024-07-08 14:11 | XMS_ITS | Encounter Summary ---
Author Organization [employer] [facility] Address 75 [facility] [address] [place] [address] Care Team Providers Care Industrial Hygenist Name Role Phone Anjelica Harris Primary Care Provider Un available Eliane Lora Primary Care Provider Wiley Winters MD Unavailable Elizabeth Gu DO Primary Care Provider [phone] Encounter Details Date Type Department Care Team (Late st Contact Info) Description 04/05/2022 Abstract [facility] MEDICAL [address] [place] [address] Anjelica Harris FNP Social History Tobacco Use Types Packs/Day Years [...] Description 08/27/2024 10:00 AM EDT Office Visit [facility] OPTOMETRY [address] [place] [address] Nohemy Downey OD [address] [place] [address] documented as of this encounter Visit Diagnoses Not on filedocumented in this encounter Care Teams Industrial Hygenist Relationship Specialty Start Date End Date Anjelica Harris FNP PCP - General Family Medicine 02/23/22 12/30/22 Eliane Lora PA PCP - General Family Medicine 12/31/22 12/05/23 Elizabeth Estrada DO [address] [place] [address] PCP - General Family Medicine 12/06/23 Wiley Damon MD [address] [place] [address] Rheumatology 10/23/23 documented as of this encounter
--- OUTSIDE RECORDS SUMMARY | 2024-07-08 14:11 | XMS_ITS | Encounter Summary ---
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 Not on file Not on file Not on file documented as of this encounter Plan of Treatment Upcoming Encounters Date Type Department Care Team (Late st Contact Info) Description 08/27/2024 10:00 AM EDT Office Visit [place] [facility] OPTOMETRY [address] [place], [place] [phone] Nohemy Downey OD [address] [place] [address] documented as of this encounter Procedures Procedure Name Priority Date/Time Associated Diagnosis Comments T-SPOT(R).TB Routine 04/22/2024 6:51 PM EST documented in this encounter Results * T-SPOT??.TB (04/22/2024 6:51 PM EST) us Historical Provider LAB BLOOD ORDERABLES Liza l Result documented in this encounter Visit Diagnoses Not on filedocumented in this encounter Additional Health Concerns Assessment Noted Time PHQ-9 Depression Total Score: 21 023 11:43 AM EDT documented as of this encounter Care Teams Tree Surgeon Helper Relationship Specialty Start Date End Date Elizabeth Estrada DO [address] [place] [address] PCP - General Family Medicine 12/06/23 Wiley Damon MD [facility] [place] [address] Rheumatology 10/23/23 documented as of this encounter
== END 2024-07-08 11:36 | disposition home or self-care (01) ==
LOC: HO.XRAY 11:35
PROVIDERS: PCP Family Medicine; Visit Provider Internal Medicine Rheumatology
DX: M79.671 Pain in right foot (principal); M79.672 Pain in left foot; M54.50 Low back pain, unspecified
CPT/HCPCS: 72100; 73620

== ENCOUNTER → 2024-07-08 11:40 | Outpatient (BNV) | payer OTHER, SELFPAY | PROVIDERS: PCP Family Medicine; Visit Provider Radiology Vascular & Interventional Radiology | DX: M51.360 Other intervertebral disc degeneration, lumbar region with discogenic back pain only (principal); M79.672 Pain in left foot; M79.671 Pain in right foot | CPT/HCPCS: 72100; 73620 ==

== ENCOUNTER 2024-08-04 09:41 | Outpatient (AMB) | payer OTHER, SELFPAY ==
--- NOTE | 2024-08-04 09:44 | MHC.OFFVIS ---
Vital Signs 08/04/24 09:49 Height 5 ft 4.17 in Weight 175 lb 14.862 oz BMI 30.0 BP 98/70 Blood Pressure Location Rt brachial Position Sitting Pulse 66 Pulse Source Pulse Oximeter Pulse Oximetry (%) 96 Oxygen Delivery Method Room Air Intake Visit Reasons: 3 Months Intake Note: Patient presents for follow up on erosive osteoarthritis. Accompanied by: Self / Same As Patient Allergies No Known Allergies Allergy (Verified 08/04/24 09:49) HPI HPI 3 Months: Details: She required prednisone on 1 occasion for right thumb swelling that is improved with taking prednisone 10 mg for 3 days. She continues to take Celebrex 200 mg twice a day. Tizanidine was not improved by insurance. She has benefit on baclofen. She continues to have lower back pain. She is not doing exercises at home. Denies radiculopathy. [facility] Medical History Erosive (osteo)arthritis Surgical History S/P laparoscopic fundoplication Social History Alcohol intake: current Alcohol intake frequency: other Comment: socially Patient Tobacco Use Status: Former Tobacco user Review of Systems Const All systems reviewed & are unremarkable except as noted in HPI and below Physical Exam Vital Signs: Last Vital Signs Pulse 66 08/04/24 09:49 BP 98/70 08/04/24 09:49 Pulse Ox 96 08/04/24 09:49 Oxygen Delivery Method Room Air 08/04/24 09:49 BMI result Body Mass Index 30.0 Const Other: General: Comfortable CVS: RRR Respiratory: clear to auscultation bilaterally. Good respiratory effort Skin: No lesions seen MSK: Right IP joint swelling and tenderness in hand. She has fusion left 3rd and 2nd right DIPJ. She can make a fist with her hands. Assessment & Plan Assessment & Plan (1) Erosive (osteo)arthritis: Comment: Pain is controlled on hydroxychloroquine. She has chronic swelling right 1st IP joint and hand. Code(s): M15.4 - Erosive (osteo)arthritis Category: Medical Plan: She will take prednisone 10 mg daily for 5 days, which she has at home. If there is no change or she does not have complete resolution of swelling, she will call office for prednisone course. Continue hydroxychloroquine 300 mg daily. Requesting eye exam for hydroxychloroquine surveillance from [facility]. She will use prednisone 10 mg 1-3 days prn joint flare Return to clinic in 3 months (2) Lumbar spondylosis: Comment: Chronic back pain. Discussed x-ray results Code(s): M47.816 - Spondylosis without myelopathy or radiculopathy, lumbar region Category: Medical Plan: PT ordered Continue Celebrex 200 mg daily and b.i.d. with increased pain Return to clinic in 3 months (3) Other middle or intermediate school principal (current) drug therapy: Code(s): Z79.899 - Other jail (current) drug therapy Category: Medical Plan: See above (4) Foot pain, bilateral: Comment: She is experiencing chronic pain in bilateral 2nd and 3rd toes likely due to early OA. Personally reviewed x-ray with patient, which reveals left DIPJ mild spurring not reported by radiologist. Code(s): M79.671 - Pain in right foot; M79.672 - Pain in left foot Category: Medical Plan: We discussed the importance of having good foot support Continue Celebrex 200 mg daily and b.i.d. with increased pain Return to clinic in 3 months (5) Cervicalgia: Comment: Due to myofascial strain. She has benefit on tizanidine 2 mg b.i.d. Code(s): M54.2 - Cervicalgia Category: Medical Plan: Continue baclofen Return to clinic in 3 months Orders: Orders Alanine Aminotransferase Today Z79.60 - senior care (current) use of unspecified immunomodulators and immunosuppressants Aspartate Amino Transferase Today Z79.60 - middle or intermediate school principal (current) use of unspecified immunomodulators and immunosuppressants Complete Blood Count Auto Diff Today Z79.60 - middle or intermediate school principal (current) use of unspecified immunomodulators and immunosuppressants Erythrocyte Sedimentation Rate Today Z79.899 - Other middle or intermediate school principal (current) drug therapy Creatinine Today Z79.60 - middle or intermediate school principal (current) use of unspecified immunomodulators and immunosuppressants C Reactive Protein Today Z79.899 - Other jail (current) drug therapy Coding Level of Care Code Est Pt Level 4 (08315) Complex EM visit Add On G2211 Diagnoses Erosive (osteo)arthritis M15.4 Lumbar spondylosis M47.816 Other middle or intermediate school principal (current) drug therapy Z79.899 Foot pain, bilateral M79.671; M79.672 Cervicalgia M54.2
[2024-08-04 09:49] VITALS: BP 98/70; PULSE 66; O2SAT 96
--- OUTSIDE RECORDS SUMMARY | 2024-08-04 10:45 | XMS_ITS | Encounter Summary ---
Author Organization [employer] Address [address] [facility] [address] [place] [address] Care Team Providers Care Drug Room Clerk Name Role Phone Wiley Damon MD Unavailable Unavaila Elizabeth Figueroa DO Primary Care Provider [phone] Encounter Details Date Type Department Care Team (Late st Contact Info) Description 04/26/[address] 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 Not on file Not on file Not on file documented as of this encounter Plan of Treatment Upcoming Encounters Date Type Department Care Team (Late st Contact Info) Description 08/27/2024 10:00 AM EDT Office Visit [place] [facility] OPTOMETRY [address] [place] [address] Nohemy Downey OD [address] [place] [address] documented as of this encounter Procedures Procedure [...] Serum (04/22/2024 8:46 AM EST) Blood Result [facility] Provider MD LAB BLOOD ORDERABLES Liza l Result * AST (04/22/2024 8:46 AM EST) Blood Venous blood specimen / Unknown Result [facility] Provider LAB BLOOD ORDERABLES Liza l Result * ALT (04/22/2024 8:46 AM EST) Blood Venous blood specimen / Unknown Result [facility] Provider LAB BLOOD ORDERABLES Liza l Result * C-reactive Protein (04/22/2024 8:46 AM EST) Blood Venous blood specimen / Unknown Result [facility] Provider MD LAB BLOOD ORDERABLES Liza l Result * CBC auto differential (04/22/2024 8:46 AM EST) Blood Venous blood specimen / Unknown Result [facility] Provider LAB BLOOD ORDERABLES Liza l Result * Sed Rate by Modified [place] (04/22/2024 8:46 AM EST) Blood Venous blood specimen / Unknown Result [facility] Provider LAB BLOOD ORDERABLES Liza l Result documented in this encounter Visit Diagnoses Not on filedocumented in this encounter Additional Health Concerns Assessment Noted Time PHQ-9 Depression Total Score: 21 023 11:43 AM EDT documented as of this encounter Care Teams Drug Room Clerk Relationship Specialty Start Date End Date Elizabeth Estrada DO [address] [place] [address] PCP - General Family Medicine 12/06/23 Wiley Damon MD [address] [place] [address] Rheumatology 10/23/23 documented as of this encounter
--- OUTSIDE RECORDS SUMMARY | 2024-08-04 10:45 | XMS_ITS | Encounter Summary ---
Author Organization [employer] Address [address] [facility] [address] 7[address] [place] [address] Care Team Providers Care Microbiological Laboratory Technician Name Role Phone Wiley Damon MD Unavailable Jaxsona Elizabeth Figueroa DO Primary Care Provider [phone] Encounter Details Date Type Department Care Team (Late st Contact Info) Description 04/28/[address] 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 Not on file Not on file Not on file documented as of this encounter Plan of Treatment Upcoming Encounters Date Type Department Care Team (Late st Contact Info) Description 08/27/2024 10:00 AM EDT Office Visit [place] [facility] OPTOMETRY [address] [place], [place] [phone] Nohemy Downey OD [address] [place] [address] documented as of this encounter Procedures Procedure [...] documented as of this encounter Care Teams Microbiological Laboratory Technician Relationship Specialty Start Date End Date Elizabeth Estrada DO [address] [place] [address] PCP - General Family Medicine 12/06/[address] [facility] [place] [address] Rheumatology 10/23/23 documented as of this encounter
--- OUTSIDE RECORDS SUMMARY | 2024-08-04 10:46 | XMS_ITS | Encounter Summary ---
Author Organization [employer] [facility] Address [address] [facility] [address] [place] [address] Care Team Providers Care Hand Miter Operator Name Role Phone Anjelica Harris Primary Care Provider Un available Eliane Lora Primary Care Provider Wiley Winters MD Unavailable Elizabeth Gu DO Primary Care Provider [phone] Encounter Details Date Type Department Care Team (Late st Contact Info) Description 04/05/2022 Abstract [facility] MEDICAL [address] [place] [address] Anjelica Harris FNP Social History Tobacco Use [...] Description 08/27/2024 10:00 AM EDT Office Visit [facility] OPTOMETRY [address] [place] [address] Nohemy Downey OD [address] [place] [address] documented as of this encounter Visit Diagnoses Not on filedocumented in this encounter Care Teams Hand Miter Operator Relationship Specialty Start Date End Date Anjelica Harris FNP PCP - General Family Medicine 02/23/22 12/30/22 Eliane Lora PA PCP - General Family Medicine 12/31/22 12/05/23 Elizabeth Estrada DO [address] [place] [address] PCP - General Family Medicine 12/06/23 Wiley Damon MD [address] [place] [address] Rheumatology 10/23/23 documented as of this encounter
--- OUTSIDE RECORDS SUMMARY | 2024-08-04 10:46 | XMS_ITS | Encounter Summary ---
Author Organization [employer] Address [address] [facility] 7t [place] [address] Care Team Providers Care Manual Lathe Operator Name Role Phone Anjelica Harris Primary Care Provider Un available Eliane Lora Primary Care Provider Wiley Winters MD Unavailable Elizabeth Gu DO Primary Care Provider [phone] Encounter Details Date Type Department Care Team [...] Description 08/27/2024 10:00 AM EDT Office Visit [place] [facility] OPTOMETRY [address] [place] [address] Nohemy Downey OD [address] [place] [address] documented as of this encounter Visit Diagnoses Not on filedocumented in this encounter Care Teams Manual Lathe Operator Relationship Specialty Start Date End Date Anjelica Harris FNP PCP - General Family Medicine 02/23/22 12/30/22 Eliane Lora PA PCP - General Family Medicine 12/31/22 12/05/23 Elizabeth Estrada DO [address] [place] [address] PCP - General Family Medicine 12/06/23 Wiley Damon MD [address] [place] [address] Rheumatology 10/23/23 documented as of this encounter
--- OUTSIDE RECORDS SUMMARY | 2024-08-04 10:46 | XMS_ITS | Encounter Summary ---
Author Organization [employer] Address [address] [facility] [facility] [address] [place] [address] Care Team Providers Care Miter Cutter Name Role Phone Sophialilly Anjelicavasyl CURIEL Primary Care Provider Un available Eliane Lora Primary Care Provider Wiley Winters MD Unavailable Elizabeth Gu DO Primary Care Provider Encounter Details Date Type Department Care Team (Late st Contact Info) Description 07/31/2022 Abstract [place] [facility] MEDICAL [address] [place] [address] Hyun Mace, ORTHO NURSE [address] [place] [address] Social History Tobacco Use Types Packs/Day Years [...] Start Date Job End Date Stay at [facility] Mom Not on file Not on file [...] 08/27/2024 10:00 AM EDT Office Visit [place] [facility] OPTOMETRY [address] [place] [address] Nohemy Downey OD [address] [place] [address] documented as of this encounter Visit Diagnoses Not on filedocumented in this encounter Additional Health Concerns Assessment Noted Time PHQ-9 Depression Total Score: 21 023 11:43 AM EDT documented as of this encounter Care Teams Miter Cutter Relationship Specialty Start Date End Date Anjelica Harris FNP PCP - General Family Medicine 02/23/22 12/30/22 Eliane Lora PA PCP - General Family Medicine 12/31/22 12/05/23 Elizabeth Estrada DO [address] [place] [address] PCP - General Family Medicine 12/06/23 Wiley Damon MD [address] [place] [address] Rheumatology 10/23/23 documented as of this encounter
--- OUTSIDE RECORDS SUMMARY | 2024-08-04 10:46 | XMS_ITS | Encounter Summary ---
Author Organization [employer] Address [address] [facility] 7t [place] [address] Care Team Providers Care Garage Door Hanger Name Role Phone Anjelica Harris Primary Care Provider Un available Eliane Lora Primary Care Provider Wiley Winters MD Unavailable Elizabeth Gu DO Primary Care Provider [phone] Encounter Details Date Type Department Care Team [...] Description 08/27/2024 10:00 AM EDT Office Visit [place] [facility] OPTOMETRY [address] [place] [address] Nohemy Downey OD [address] [place] [address] documented as of this encounter Visit Diagnoses Not on filedocumented in this encounter Care Teams Garage Door Hanger Relationship Specialty Start Date End Date Anjelica Harris FNP PCP - General Family Medicine 02/23/22 12/30/22 Eliane Lora PA PCP - General Family Medicine 12/31/22 12/05/23 Elizabeth Estrada DO [address] [place] [address] PCP - General Family Medicine 12/06/23 Wiley Damon MD [address] [place] [address] Rheumatology 10/23/23 documented as of this encounter
--- OUTSIDE RECORDS SUMMARY | 2024-08-04 10:46 | XMS_ITS | Encounter Summary ---
Author Organization [employer] Address [address] [facility] [facility] [address] [place] [address] Care Team Providers Care Electrical Equipment Assembler Name Role Phone Wiley Damon MD Unavailable Unavaila ble Elizabeth Estrada DO Primary Care Provider [phone] Encounter Details Date Type Department Care Team (Late st Contact Info) Description 01/25/2024 Orders Only [facility] [address] [place] [address] Elizabeth Estrada DO [address] [place] [address] Social History Tobacco Use Types Packs/Day Years [...] Start Date Job End Date Stay at [facility] Mom Not on file Not on file Not on file documented as of this encounter Plan of Treatment Upcoming Encounters Date Type Department Care Team (Late st Contact Info) Description 08/27/2024 10:00 AM EDT Office Visit [place] [facility] OPTOMETRY [address] [place] [address] Nohemy Downey OD [address] [place] [address] documented as of this encounter Procedures Procedure [...] (Negative) Lay letter mailed to patient WSN: [id number] Ordering Physician: Alejandra Steen Dictated By: ?Julia Calero MD Dictated Date/Time: ?02/18/24 5:04 pm Reviewed By: ?Julia Calero MD Signed By: ? Julia Calero MD Signed Date/Time: ? 02/18/24 5:04 pm Transcribed By: ? CSB Surgical Coder Date/Time: ? 02/18/24 5:01 pm Birads: Procedure [...] (Negative) Lay letter mailed to patient WSN: [id number] Ordering Physician: Alejandra Steen Dictated By: Julia Calero MD Dictated Date/Time: 02/18/24 5:04 pm Reviewed By: Julia Calero MD Signed By: Julia Calero MD Signed Date/Time: 02/18/24 5:04 pm Transcribed By: GABRIEL Surgical Coder Date/Time: 02/18/24 5:01 pm Birads: Alejandra Steen SUPERVISOR MIXING IMG BI PROCEDURES Liza l Result * [...] documented as of this encounter Care Teams Electrical Equipment Assembler Relationship Specialty Start Date End Date Elizabeth Estrada DO [address] [place] [address] PCP - General Family Medicine 12/06/23 Wiley Damon MD [address] [place] [phone] Rheumatology 10/23/23 documented as of this encounter
--- OUTSIDE RECORDS SUMMARY | 2024-08-04 10:46 | XMS_ITS | Encounter Summary ---
Author Organization [employer] Address [address] [place] [address] Care Team Providers Care Cable Cutter And Swager Name Role Phone Wiley Damon MD Unavailable Unavaila ble Elizabeth Estrada DO Primary Care Provider [phone] Encounter Details Date Type Department Care Team (Late st Contact Info) Description 07/16/2024 Orders Only [facility] [address] [place] [address] Elizabeth Estrada DO [address] [place] [address] Social History Tobacco Use Types Packs/Day Years [...] Start Date Job End Date Stay at [facility] Mom Not on file Not on file Not on file documented as of this encounter Plan of Treatment Upcoming Encounters Date Type Department Care Team (Late st Contact Info) Description 08/27/2024 10:00 AM EDT Office Visit [place] [facility] OPTOMETRY [address] [place] [address] Nohemy Downey, TYRONE [address] [place] [address] documented as of this encounter Procedures Procedure Name Priority Date/Time Associated Diagnosis Comments XR LUMBAR SPINE 2-3 VIEWS Routine 07/08/2024 10:30 AM EDT XR FOOT 1-2 VIEWS RIGHT Routine 07/08/2024 10:29 AM EDT XR FOOT 1-2 VIEWS LEFT Routine 07/08/2024 10:19 AM EDT documented in this encounter Results * XR Lumbar Spine 2-3 Views (07/08/2024 10:30 AM EDT) Anatomical Region Laterality Modality Spine, L-spine Radiographic [place]our[place] ging us Elizabeth Estrada DO IMG XR PROCEDURES Final Result * XR Foot 1-2 Views Right (07/08/2024 10:29 AM EDT) Anatomical Region Laterality Modality Lower Extremities, Foot Right Radiogra phic Imaging us Elizabeth Estrada DO IMG XR PROCEDURES Final Result * XR Foot 1-2 Views Left (07/08/2024 10:19 AM EDT) Anatomical Region Laterality Modality Lower Extremities, Foot Left Radiogra phic Imaging us Elizabeth Estrada DO IMG XR PROCEDURES Final Result documented in this encounter Visit Diagnoses Not on filedocumented in this encounter Additional Health Concerns Assessment Noted Time PHQ-9 Depression Total Score: 21 023 11:43 AM EDT documented as of this encounter Care Teams Cable Cutter And Swager Relationship Specialty Start Date End Date Elizabeth Estrada DO [address] [place] [address] PCP - General Family Medicine 12/06/23 Wiley Damon MD [address] [place] [phone] Rheumatology 10/23/23 documented as of this encounter
--- OUTSIDE RECORDS SUMMARY | 2024-08-04 10:46 | XMS_ITS | Clinical Summary ---
Author Organization [employer] Address [address] [facility] [address] [place] [address] Care Team Providers Care Manganese Breaker Name Role Phone Wiley Damon MD Unavailable Unavaila Elizabeth Figueroa DO Primary Care Provider [phone] Allergies No known active allergies Medications Tylenol Extra Strength 500 MG tablet TAKE 1 TABLET BY MOUTH EVERY 4 TO 6 HOURS NEEDED 03/19/20 22 Active biotin 1000 MCG tablet Take 1,000 mcg by mouth in the morning. Active celecoxib (CeleBREX) 200 MG capsule 1 capsule in the morning. Active hydroxychloroq uine (Plaquenil) 200 MG tablet TAKE 1 AND 1/2 TABLETS BY MOUTH DAILY 03/13/20 22 Active Multiple Vitamins-Duplin als (Vitrum Senior) tablet Take 1 tablet by mouth in the morning. Active fluticasone (Flonase) 50 MCG/ACT nasal spray 1 spray in the morning. 01/28/20 19 Active Diclofenac Sodium 1 % gel APPLY 2 GRAMS TO AFFECTED AREA EVERY 4-6 HOURS 07/16/19 24 Active tiZANidine (Zanaflex) 2 MG tablet Take 2 mg by mouth if needed in the morning and at bedtime. 06/07/19 24 Active predniSONE (Deltasone) 10 MG tablet 07/16/19 24 Active predniSONE (Deltasone) 5 MG tablet TAKE 2 TABLETS BY MOUTH FOR 1 WEEK THEN 1 TABLET EVERY DAY. TAKE WITH FOOD. HOLD CELEBREX 04/17/19 24 Active LORazepam (Ativan) 0.5 MG tabletIndicati ons:Anxiety Take 1 tablet (0.5 mg) by mouth if needed in the morning and at bedtime for anxiety for up to 28 days. 56 tablet 01/20/20 24 Active albuterol (2.5 MG/3ML) 0.083% nebulizer solutionIndica tions:Chronic obstructive pulmonary disease, unspecified COPD type (CMS/HCC) Take 3 mL (2.5 mg) by nebulization if needed in the morning, at noon, in the evening, and at bedtime for wheezing or shortness of breath. 120 mL 03/17/20 Active traMADol (Ultram) 50 MG tablet Take 50 mg by mouth. 02/27/20 Active albuterol 108 (90 Base) MCG/ACT inhalerIndicat ions:Bronchiti s INHALE 2 PUFFS BY MOUTH EVERY 6 HOURS NEEDED FOR WHEZING 8.5 g 2 07/26/19 Active baclofen (Lioresal) 10 MG tablet Take 10 mg by mouth if needed. 07/25/19 25 Active terbinafine (LamISIL) 250 MG tabletIndicati ons:Dermatophy tosis Take 1 tablet (250 mg) by mouth Once per day for 14 days. 14 tablet 08/04/19 25 2024 Active clobetasol (Temovate) 0.05 % cream Apply topically if needed in the morning and at bedtime (itching). 60 g 08/04/19 Active Nirmatrelvir&R itonavir 300/100 (Paxlovid, 300/100,) 20 x 150 MG & 10 x 100MG tablet therapy packIndication s:2019 novel coronavirus disease (COVID-19) Take 1 Dose by mouth 2 times daily. 30 each 03/30/20 24 2024 Discontinued(T herapy completed) albuterol 108 (90 Base) MCG/ACT inhalerIndicat ions:Bronchiti s INHALE 2 PUFFS BY MOUTH EVERY 6 HOURS NEEDED FOR WHEZING 8.5 g 2 05/11/19 25 2024 Discontinued Active Problems Problem Noted Date Diagnosed Date COVID-19 03/17/2024 Assessment & Plan (03/17/2024 6:24 PM EST): COVID home test positive this a.m. after attending concert in [place] on Saturday (3 days ago), feverish feeling/chills/fatigue but no n/v/d and wants Paxlovid - states worked well for her last time had Covid. No contraindications. No current COPD exacerbation. E rx sent and states her son will picked edge sewing machine operator for her this evening. Akilah agrees to [...] Encounters Date Type Department Care Team Description 08/03/2024 2:45 PM EDT Office Visit [facility] MEDICAL [address] [place] [address] Elizabeth Estrada DO Dermatophytosis (Primary Dx); Loud snoring; Chronic fatigue 08/03/2024 Travel 07/24/[address] [facility] MEDICAL [address] [place] [address] Elizabeth Estrada DO Bronchitis 07/22/2024 Telephone [facility] [address] [place] [address] Elizabeth Estrada DO Care Coordination 07/16/2024 Orders Only [facility] Information Management [address] [place] [address] Elizabeth Estrada DO 06/24/2024 3:00 PM EDT Office Visit [facility] OPTOMETRY [address] [place] [address] Nohemy Downey, OD Superficial punctate keratitis of both eyes (Primary Dx); Posterior vitreous detachment of right eye; Retinal cyst of right eye; Vitreomacular adhesion of left eye 06/19/2024 Population Health Risk Score [facility] [address] [place] [phone] Provider, Population Health Generic 05/10/[address] [facility] MEDICAL [address] [place] [address] Elizabeth Estrada DO Bronchitis from Last 3 Months Immunizations Name Administration [...] Start Date Job End Date Stay at [facility] Mom Not on file Not on file Not on file Last Filed Vital Signs Vital Sign Reading Time Taken Comments Blood Pressure 124/83 08/03/2024 2:57 PM EDT Pulse 85 08/03/2024 2:57 PM EDT Temperature 36.1 ??C (97 ??F) 08/03/2024 2:57 PM EDT Respiratory Rate 16 07/06/2022 11:34 AM EDT Oxygen Saturation 97% 08/03/2024 2:57 PM EDT Inhaled Oxygen Concentration - - Weight 79.4 kg (175 lb) 08/03/2024 2:57 PM EDT Height 160 cm (5' 3 ) 08/03/2024 2:57 PM EDT Body Mass Index 31 08/03/2024 2:57 PM EDT Plan of Treatment Upcoming Encounters Date Type Department Care Team (Late st Contact Info) Description 08/27/2024 10:00 AM EDT Office Visit [place] [facility] OPTOMETRY [address] [place], [place] [id number] Nohemy Downey, OD [address] [place] [address] Health Maintenance Due Date Last Done Comments [...] 2023 03/06/2023, 02/23/2022, 06/23/2021, Additional history exists Cervical Cancer Screening 08/22/2024 Pap Smear 08/22/2024 [...] EDT XR FOOT 1-2 VIEWS LEFT Routine 10:19 AM EDT OCT, RETINA - OU - BOTH EYES Routine 06/24/2024 Vitreomacular adhesion of left eye BI MAMMOGRAM SCREENING TOMOSYNTHESIS BILATERAL Routine 02/18/2024 [...] Recently Relevant to Health Maintenance Results * XR Lumbar Spine 2-3 Views (07/08/2024 10:30 AM EDT) Anatomical Region Laterality Modality Spine, L-spine Radiographic [place] ging [facility] DO IMG XR PROCEDURES Final Result * XR Foot 1-2 Views Right (07/08/2024 10:29 AM EDT) Anatomical Region Laterality Modality Lower Extremities, Foot Right Radiogra phic Imaging [facility] DO IMG XR PROCEDURES Final Result * XR Foot 1-2 Views Left (07/08/2024 10:19 AM EDT) Anatomical Region Laterality Modality Lower Extremities, Foot Left Radiogra phic Imaging [facility] DO IMG XR PROCEDURES Final Result * OCT, Retina - OU - Both Eyes (06/24/2024) Impressions Nohemy Downey, OD - 06/24/2024 Right eye (OD): Complete PVD. 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 New finding compared to previous scan. Left eye (OS): Vitreomacular traction at fovea without any disruption to foveal contour. Progressed from previous. us Nohemy Downey OD OPHTH TOMOGRAPHY Final Result * BI Mammogram Screening Tomosynthesis Bilateral [...] (Negative) Lay letter mailed to patient WSN: [id number] Ordering Physician: Alejandra Steen Dictated By: ?Julia Calero MD Dictated Date/Time: ?02/18/24 5:04 pm Reviewed By: ?Julia Calero MD Signed By: ? Julia Calero MD Signed Date/Time: ? 02/18/24 5:04 pm Transcribed By: ? CSB Stummel Selector Date/Time: ? 02/18/24 5:01 pm Birads: Procedure [...] (Negative) Lay letter mailed to patient WSN: [id number] Ordering Physician: Alejandra Steen Dictated By: Julia Calero MD Dictated Date/Time: 02/18/24 5:04 pm Reviewed By: Julia Calero MD Signed By: Julia Calero MD Signed Date/Time: 02/18/24 5:04 pm Transcribed By: GABRIEL Stummel Selector Date/Time: 02/18/24 5:01 pm Birads: Alejandra Steen ELOCUTION TEACHER IMG BI PROCEDURES Liza l Result * (ABNORMAL) POCT glycosylated hemoglobin (Hgb A1c) (01/20/2024 8:45 AM EDT) Pathologist [facility] Hemoglobin A1C 5.7 4.0 - 6.0 % Blood Capillary blood specimen / Unknown 01/20/2024 8:45 AM EDT Elizabeth Estrada DO POINT OF CARE TEST ENTER/EDIT ORDERABLES Final Result * Pap Smear (08/22/2021) Pathologist [facility] Pap smear Pap negative, HPV negative Historical [...] Most Recently Relevant to Health Maintenance Insurance CCA ONE CARE < 65 CCA ONE CARE < 65 Care Teams Manganese Breaker Relationship Specialty Start Date End Date Elizabeth Estrada DO [address] [place] [address] PCP - General Family Medicine 12/06/23 Wiley Damon MD [facility] [place] [address] Rheumatology 10/23/23
--- OUTSIDE RECORDS SUMMARY | 2024-08-04 10:46 | XMS_ITS | Encounter Summary ---
Author Organization [employer] Address [address] [facility] [address] [place] [address] Care Team Providers Care Bakery Chef Name Role Phone Wiley Damon MD, Alexandra DO Primary Care Provider [phone] Encounter Details Date Type Department Care Team (Latest Contact Info) Description 08/03/2024 Travel Social History Tobacco Use Types Packs/Day Years [...] Start Date Job End Date Stay at [facility] Mom Not on file Not on file Not on file documented as of this encounter Plan of Treatment Upcoming Encounters Date Type Department Care Team (Late st Contact Info) Description 08/27/2024 10:00 AM EDT Office Visit [place] [facility] OPTOMETRY [address] [place] [address] Nohemy Downey OD [address] [place] [address] documented as of this encounter Visit Diagnoses Not on filedocumented in this encounter Additional Health Concerns Assessment Noted Time PHQ-9 Depression Total Score: 21 023 11:43 AM EDT documented as of this encounter Care Teams Bakery Chef Relationship Specialty Start Date End Date Elizabeth Estrada DO [address] [place] [address] PCP - General Family Medicine 12/06/23 Wiley Damon MD [address] [place] [address] Rheumatology 10/23/23 documented as of this encounter
--- OUTSIDE RECORDS SUMMARY | 2024-08-04 10:46 | XMS_ITS | Encounter Summary ---
Author Organization [employer] Address [address] [place] [address] [address] [place] [address] Care Team Providers Care Wan Support Specialist Name Role Phone Wiley Damon MD Unavailable Unavaila ble Elizabeth Estrada DO Primary Care Provider Reason for Referral * Imaging (Routine) - Pending Review Specialty Diagnoses / Procedures Referred By Santy pinzon Referred To Contact Diagnoses Loud snoring Chronic fatigue Procedures Polysomnography Elizabeth Estrada DO [address] [place] [address] Phone: tel: fax: Referral ID Status Reason Start Date Expiration Date V isits Requested Visits Authorized [id number] Pending Review 08/03/2024 08/03/2025 1 1 Reason for Visit * Reason Comments Nail Problem Nail infection (can be fungal) start a month ago Encounter Details Date Type Department Care Team (Latest Contact Info) Description 08/03/2024 2:45 PM EDT Office Visit [place] [facility] [address] [place] [address] Elizabeth Estrada DO [address] [place] [address] Dermatophytosis (Primary Dx); Loud snoring; Chronic fatigue Social History Tobacco Use Types Packs/Day Years [...] Start Date Job End Date Stay at [facility] Mom Not on file Not on file Not on file documented as of this encounter Last Filed Vital Signs Vital Sign Reading Time Taken Comments Blood Pressure 124/83 08/03/2024 2:57 PM EDT Pulse 85 08/03/2024 2:57 PM EDT Temperature 36.1 ??C (97 ??F) 08/03/2024 2:57 PM EDT Respiratory Rate - - Oxygen Saturation 97% 08/03/2024 2:57 PM EDT Inhaled Oxygen Concentration - - Weight 79.4 kg (175 lb) 08/03/2024 2:57 PM EDT Height 160 cm (5' 3 ) 08/03/2024 2:57 PM EDT Body Mass Index 31 08/03/2024 2:57 PM EDT documented in this encounter Progress Notes * Elizabeth Estrada DO - 08/03/2024 2:45 PM EDT 08/03/24 Akilah Chavis 1965 [id number] HPI: Akilah Chavis is a 59 y.o. female here today for Nail Problem (Nail infection (can be fungal) start a month ago ). Nail Infection - Started approximately 4 to 6 weeks ago. - Initially began in the nails after skin was broken during a manicure. - Spread to fingers, head, belly, and other areas. - Itching present, with a rash noted on the thigh. - Used Clobetasol cream, which helped dry up the rash. - Super sensitive skin, with itching in various areas including the anus. - Inguinal crease is rashy and itchy. 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 - Feels like never having slept well. - Has been experiencing symptoms for a long time and suspects sleep apnea. Review of Symptoms: Per HPI Physical Exam: BP 124/83 (BP Location: Right arm, Patient Position: Sitting) Pulse 85 Temp 97 ??F (36.1 ??C) (Tympanic) Ht 5' 3 (1.6 m) Wt 175 lb (79.4 kg) SpO2 97% BMI 31.00 kg/m?? Skin - No visible lesion on the head, typical hair falls with a tiny bit of dryness, no flaking observed. Lesion observed on the thigh, described as a dry lesion. Right index fingernail margin dry and thickened nail PERTINENT LABORATORY DATA: reviewed PERTINENT IMAGING: Reviewed ASSESSMENT AND PLAN Diagnosis Plan 1. Dermatophytosis terbinafine (LamISIL) 250 MG tablet 2. Loud snoring Polysomnography Polysomnography 3. Chronic fatigue Polysomnography Polysomnography Assessment - Condition likely fungal infection, given the presentation and spread of symptoms. - Inflammation present, as indicated by the response to clobetasol. - Possible sleep apnea, based on reported symptoms of snoring and feeling unrested. Plan - Prescribe terbinafine for a duration of two weeks to address the suspected fungal infection. If symptoms do not improve by the end of the course, consider extending the treatment for an additional two weeks. - Continue using clobetasol to manage inflammation and alleviate itching. Although it does not treat the fungal infection directly, it can help reduce associated symptoms. - Consider the use of prednisone if the symptoms persist, but avoid daily use to prevent masking the effects of other treatments. - Arrange for a home polysomnography to evaluate for potential sleep apnea. The patient will be provided with the necessary equipment to monitor sleep patterns at home. If further information is needed, a follow-up in a sleep lab may be considered. Prescription - Terbinafine, 2-week course; extend for another 2 weeks if not improved - Clobetasol, steroid cream for inflammation - Prednisone, use PRN (as needed) but not daily to avoid masking effects of other treatments Appointments - Home polysomnography appointment to be scheduled. No follow-ups on file. Elizabeth Estrada DO [address] [address] documented in this encounter Plan of Treatment Upcoming Encounters Date Type Department Care Team (Late st Contact Info) Description 08/27/2024 10:00 AM EDT Office Visit [place] [facility] [address] [place] [address] Nohemy Downey, TYRONE [address] [place] [address] Scheduled Orders Name Type Priority Associated Diagnoses Orde r Schedule Polysomnography Sleep Center Routine Loud snoring Chronic fatigue Expected: 08/03/2024 (Approximate), Expires: 08/03/2025 documented as of this encounter Visit Diagnoses Diagnosis Dermatophytosis- Primary Dermatophytosis of unspecified site Loud snoring Chronic fatigue Other malaise and fatigue documented in this encounter Additional Health Concerns Assessment Noted Time PHQ-9 Depression Total Score: 21 023 11:43 AM EDT documented as of this encounter Care Teams Wan Support Specialist Relationship Specialty Start Date End Date Elizabeth Estrada DO [address] [place] [address] PCP - General Family Medicine 12/06/23 Wiley Damon MD [address] [place] [address] Rheumatology 10/23/23 documented as of this encounter
== END 2024-08-04 10:17 | disposition home or self-care (01) ==
LOC: HO.RHES 09:42
PROVIDERS: PCP Family Medicine; Visit Provider Internal Medicine Rheumatology
DX: M15.4 Erosive (osteo)arthritis (principal); M47.816 Spondylosis without myelopathy or radiculopathy, lumbar region; Z79.899 Other long term (current) drug therapy; M79.671 Pain in right foot; M79.672 Pain in left foot; M54.2 Cervicalgia
CPT/HCPCS: 99214; G2211

== ENCOUNTER 2024-08-04 09:41 | Outpatient (REF) | payer OTHER, SELFPAY ==
--- OUTSIDE RECORDS SUMMARY | 2024-08-04 11:47 | XMS_ITS | Encounter Summary ---
Author Organization [employer] Address [address] [facility] [address] [place] [address] Care Team Providers Care Automotive Engineering Technician Name Role Phone Wiley Damon MD Unavailable Unavaila ble Elizabeth Estrdaa DO Primary Care Provider [phone] Encounter Details Date Type Department Care Team (Late st Contact Info) Description 01/25/2024 Orders Only [facility] [address] [place] [address] Elizabeth Estrada DO [address] [place] [address] Social History Tobacco Use Types Packs/Day Years [...] Start Date Job End Date Stay at [facility] Mom Not on file Not on file Not on file documented as of this encounter Plan of Treatment Upcoming Encounters Date Type Department Care Team (Late st Contact Info) Description 08/27/2024 10:00 AM EDT Office Visit [place] [facility] [address] [place] [address] Nohemy Downey OD [address] [place] [address] documented as of this encounter Procedures Procedure [...] (Negative) Lay letter mailed to patient WSN: [id number] Ordering Physician: Alejandra Steen Dictated By: ?Julia Calero MD Dictated Date/Time: ?02/18/24 5:04 pm Reviewed By: ?Julia Calero MD Signed By: ? Julia Calero MD Signed Date/Time: ? 02/18/24 5:04 pm Transcribed By: ? CSB Bail Bondsman Date/Time: ? 02/18/24 5:01 pm Birads: Procedure [...] (Negative) Lay letter mailed to patient WSN: [id number] Ordering Physician: Alejandra Steen Dictated By: Julia Calero MD Dictated Date/Time: 02/18/24 5:04 pm Reviewed By: Julia Calero MD Signed By: Julia Calero MD Signed Date/Time: 02/18/24 5:04 pm Transcribed By: GABRIEL Bail Bondsman Date/Time: 02/18/24 5:01 pm Birads: Alejandra Steen STAFF ELECTRONIC WARFARE OFFICER IMG BI PROCEDURES Liza l Result * [...] documented as of this encounter Care Teams Automotive Engineering Technician Relationship Specialty Start Date End Date Elizabeth Estrada DO [address] [place] [address] PCP - General Family Medicine 12/06/23 Wiley Damon MD [address] [place] [phone] Rheumatology 10/23/23 documented as of this encounter
--- OUTSIDE RECORDS SUMMARY | 2024-08-04 11:47 | XMS_ITS | Encounter Summary ---
Author Organization [employer] Address [address] [facility] 7t [place] [address] Care Team Providers Care Cro Name Role Phone Anjelica Harris Primary Care Provider Un available Eliane Lora Primary Care Provider Wiley Winters MD Unavailable Elizabeth Gu DO Primary Care Provider [phone] Encounter Details Date Type Department Care Team [...] Description 08/27/2024 10:00 AM EDT Office Visit [place] [facility] [address] [place] [address] Nohemy Downey OD [address] [place] [address] documented as of this encounter Visit Diagnoses Not on filedocumented in this encounter Care Teams Cro Relationship Specialty Start Date End Date Anjelica Harris FNP PCP - General Family Medicine 02/23/22 12/30/22 Eliane Lora PA PCP - General Family Medicine 12/31/22 12/05/23 Elizabeth Estrada DO [address] [place] [address] PCP - General Family Medicine 12/06/23 Wiley Damon MD [address] [place] [address] Rheumatology 10/23/23 documented as of this encounter
--- OUTSIDE RECORDS SUMMARY | 2024-08-04 11:47 | XMS_ITS | Encounter Summary ---
Author Organization [employer] Address [address] [facility] [address] [place] [address] Care Team Providers Care Bale Breaker Operator Name Role Phone Wiley Damon MD Unavailable Jaxsona Elizabeth Figueroa DO Primary Care Provider [phone] Encounter Details Date Type Department Care Team (Late st Contact Info) Description 04/28/2024 Orders Only [facility] [address] [place] [address] ProviderDayanara MD Social History Tobacco Use Types [...] Start Date Job End Date Stay at [facility] Mom Not on file Not on file Not on file documented as of this encounter Plan of Treatment Upcoming Encounters Date Type Department Care Team (Late st Contact Info) Description 08/27/2024 10:00 AM EDT Office Visit [place] [facility] [address] [place], [place] [phone] Nohemy Downey OD [address] [place] [address] documented as of this encounter Procedures Procedure [...] documented as of this encounter Care Teams Bale Breaker Operator Relationship Specialty Start Date End Date Elizabeth Estrada DO [address] [place] [address] PCP - General Family Medicine 12/06/23 Wiley Damon MD [facility] [place] [address] Rheumatology 10/23/23 documented as of this encounter
--- OUTSIDE RECORDS SUMMARY | 2024-08-04 11:47 | XMS_ITS | Encounter Summary ---
Author Organization [employer] Address [address] [facility] [address] [facility] [address] [place] [address] Care Team Providers Care Workers Compensation Paralegal Name Role Phone Wiley Damon MD Unavailable Unavaila Elizabeth Figueroa DO Primary Care Provider [phone] Encounter Details Date Type Department Care Team (Late st Contact Info) Description 04/26/2024 Orders Only [facility] [address] [place] [address] ProviderDayanara MD Social History Tobacco Use Types [...] Start Date Job End Date Stay at [facility] Mom Not on file Not on file Not on file documented as of this encounter Plan of Treatment Upcoming Encounters Date Type Department Care Team (Late st Contact Info) Description 08/27/2024 10:00 AM EDT Office Visit [place] [facility] [address] [place] [address] Nohemy Downey OD [address] [place] [address] documented as of this encounter Procedures Procedure [...] Serum (04/22/2024 8:46 AM EST) Blood Result [facility] Provider MD LAB BLOOD ORDERABLES Liza l Result * AST (04/22/2024 8:46 AM EST) Blood Venous blood specimen / Unknown Result [facility] Provider LAB BLOOD ORDERABLES Liza l Result * ALT (04/22/2024 8:46 AM EST) Blood Venous blood specimen / Unknown Result [facility] Provider LAB BLOOD ORDERABLES Liza l Result * C-reactive Protein (04/22/2024 8:46 AM EST) Blood Venous blood specimen / Unknown Result [facility] Provider MD LAB BLOOD ORDERABLES Liza l Result * CBC auto differential (04/22/2024 8:46 AM EST) Blood Venous blood specimen / Unknown Result [facility] Provider LAB BLOOD ORDERABLES Liza l Result * Sed Rate by Modified W[place] (04/22/2024 8:46 AM EST) Blood Venous blood specimen / Unknown Result [facility] Provider LAB BLOOD ORDERABLES Liza l Result documented in this encounter Visit Diagnoses Not on filedocumented in this encounter Additional Health Concerns Assessment Noted Time PHQ-9 Depression Total Score: 21 023 11:43 AM EDT documented as of this encounter Care Teams Workers Compensation Paralegal Relationship Specialty Start Date End Date Elizabeth Estrada DO [address] [place] [address] PCP - General Family Medicine 12/06/23 Wiley Damon MD [address] [place] [address] Rheumatology 10/23/23 documented as of this encounter
--- OUTSIDE RECORDS SUMMARY | 2024-08-04 11:47 | XMS_ITS | Encounter Summary ---
Author Organization [employer] Address [address] [facility] 7t [place] [address] Care Team Providers Care Legal Counsel Name Role Phone Anjelica Harris Primary Care Provider Un available Eliane Lora Primary Care Provider Wiley Winters MD Unavailable Elizabeth Gu DO Primary Care Provider [phone] Encounter Details Date Type Department Care Team [...] Description 08/27/2024 10:00 AM EDT Office Visit [place] [facility] [address] [place] [address] Nohemy Downey OD [address] [place] [address] documented as of this encounter Visit Diagnoses Not on filedocumented in this encounter Care Teams Legal Counsel Relationship Specialty Start Date End Date Anjelica Harris FNP PCP - General Family Medicine 02/23/22 12/30/22 Eliane Lora PA PCP - General Family Medicine 12/31/22 12/05/23 Elizabeth Estrada DO [address] [place] [address] PCP - General Family Medicine 12/06/23 Wiley Damon MD [address] [place] [address] Rheumatology 10/23/23 documented as of this encounter
--- OUTSIDE RECORDS SUMMARY | 2024-08-04 11:47 | XMS_ITS | Encounter Summary ---
Author Organization [employer] Address [address] [facility] [address] [address] [place] [address] Care Team Providers Care Theater Education Teacher Name Role Phone Wiley Damon MD Unavailable Unavaila ble Elizabeth Estrada DO Primary Care Provider [phone] Encounter Details Date Type Department Care Team (Late st Contact Info) Description 07/16/2024 Orders Only [facility] [address] [place] [address] Elizabeth Estrada DO [address] [place] [address] Social History Tobacco Use Types Packs/Day Years [...] Start Date Job End Date Stay at [facility] Mom Not on file Not on file Not on file documented as of this encounter Plan of Treatment Upcoming Encounters Date Type Department Care Team (Late st Contact Info) Description 08/27/2024 10:00 AM EDT Office Visit [facility] [address] [place] [address] Nohemy Downey, TYRONE [address] [place] [address] documented as of this encounter Procedures Procedure [...] documented as of this encounter Care Teams Theater Education Teacher Relationship Specialty Start Date End Date Elizabeth Estrada DO [address] [place] [address] PCP - General Family Medicine 12/06/23 Wiley Damon MD [address] [place] [address] Rheumatology 10/23/23 documented as of this encounter
--- OUTSIDE RECORDS SUMMARY | 2024-08-04 11:47 | XMS_ITS | Encounter Summary ---
Author Organization [employer] Address [address] [facility] [address] [place] [address] Care Team Providers Care Plaster Lather Name Role Phone Sophialilly Anjelicavasyl CURIEL Primary Care Provider Un available Eliane Lora Primary Care Provider Wiley Winters MD Unavailable Elizabeth Gu DO Primary Care Provider Encounter Details Date Type Department Care Team (Late st Contact Info) Description 07/31/2022 Abstract [place] [facility] [address] [place] [address] Hyun Mace, SMOKE JUMPER [address] [place] [address] Social History Tobacco Use Types Packs/Day Years [...] Start Date Job End Date Stay at [facility] Mom Not on file Not on [...] 08/27/2024 10:00 AM EDT Office Visit [place] [facility] [address] [place] [address] Nohemy Downey OD [address] [place] [address] documented as of this encounter Visit Diagnoses Not on filedocumented in this encounter Additional Health Concerns Assessment Noted Time PHQ-9 Depression Total Score: 21 023 11:43 AM EDT documented as of this encounter Care Teams Plaster Lather Relationship Specialty Start Date End Date Anjelica Harris FNP PCP - General Family Medicine 02/23/22 12/30/22 Eliane Lroa PA PCP - General Family Medicine 12/31/22 12/05/23 Elizabeth Estrada DO [address] [place] [address] PCP - General Family Medicine 12/06/23 Wiley Damon MD [address] [place] [address] Rheumatology 10/23/23 documented as of this encounter
--- OUTSIDE RECORDS SUMMARY | 2024-08-04 11:47 | XMS_ITS | Encounter Summary ---
Author Organization [employer] [facility] Address [address] [facility] [address] [place] [address] Care Team Providers Care Internet Marketing Specialist Name Role Phone Anjelica Harris Primary Care Provider Un available Eliane Lora Primary Care Provider Wiley Winters MD Unavailable Elizabeth Gu DO Primary Care Provider Encounter Details Date Type Department Care Team (Late st Contact Info) Description 04/05/2022 Abstract [facility] [address] [place] [address] Anjelica Harris FNP Social History Tobacco Use [...] Description 08/27/2024 10:00 AM EDT Office Visit [facility] [address] [place] [address] Nohemy Downey OD [address] [place] [address] documented as of this encounter Visit Diagnoses Not on filedocumented in this encounter Care Teams Internet Marketing Specialist Relationship Specialty Start Date End Date Anjelica Harris FNP PCP - General Family Medicine 02/23/22 12/30/22 Eliane Lora PA PCP - General Family Medicine 12/31/22 12/05/23 Elizabeth Estrada DO [address] [place] [address] PCP - General Family Medicine 12/06/23 Wiley Damon MD [address] [place] [address] Rheumatology 10/23/23 documented as of this encounter
--- OUTSIDE RECORDS SUMMARY | 2024-08-04 11:48 | XMS_ITS | Encounter Summary ---
Author Organization [employer] Address [address] [place] [address] [address] [address] Care Team Providers Care Program Assistant Name Role Phone Wiley Damon MD Unavailable Unavaila ble Elizabeth Estrada DO Primary Care Provider Reason for Referral * Imaging (Routine) - Pending Review Specialty Diagnoses / Procedures Referred By Santy pinzon Referred To Contact Diagnoses Loud snoring Chronic fatigue Procedures Polysomnography Elizabeth Estrada DO [address] [place] [address] Phone: tel: fax: Referral ID Status Reason Start Date Expiration Date V isits Requested Visits Authorized [id number] Pending Review 08/03/2024 08/03/2025 1 1 Reason for Visit * Reason Comments Nail Problem Nail infection (can be fungal) start a month ago Encounter Details Date Type Department Care Team (Latest Contact Info) Description 08/03/2024 2:45 PM EDT Office Visit [place] [facility] [address] [place] [address] Elizabeth Estrada DO [address] [place] [address] Dermatophytosis (Primary Dx); Loud snoring; Chronic fatigue [...] Start Date Job End Date Stay at [facility] Mom Not on file Not on [...] 2:45 PM EDT 08/03/24 Akilah Chavis [id number] HPI: Akilah Chavis is a 59 y.o. [...] No follow-ups on file. Elizabeth Estrada DO [address] [address] documented in this encounter Plan of Treatment Upcoming Encounters Date Type Department Care Team (Late st Contact Info) Description 08/27/2024 10:00 AM EDT Office Visit [place] [facility] [address] [place] [address] Nohemy Downey, TYRONE [address] [place] [address] Scheduled Orders Name Type Priority Associated Diagnoses [...] documented as of this encounter Care Teams Program Assistant Relationship Specialty Start Date End Date Elizabeth Estrada DO [address] [place] [address] PCP - General Family Medicine 12/06/23 Wiley Damon MD [address] [place] [address] Rheumatology 10/23/23 documented as of this encounter
--- OUTSIDE RECORDS SUMMARY | 2024-08-04 11:48 | XMS_ITS | Encounter Summary ---
Author Organization [employer] Address [address] [facility] [address] [place] [address] Care Team Providers Care Mosaic Layer Name Role Phone Wiley Damon MD, Alexandra DO Primary Care Provider Encounter Details Date [...] 08/27/2024 10:00 AM EDT Office Visit [place] [facility] [address] [place] [address] Nohemy Downey OD [address] [place] [address] documented as of this encounter Visit Diagnoses Not on filedocumented in this encounter Additional Health Concerns Assessment Noted Time PHQ-9 Depression Total Score: 21 023 11:43 AM EDT documented as of this encounter Care Teams Mosaic Layer Relationship Specialty Start Date End Date Elizabeth Estrada DO [address] [place] [address] PCP - General Family Medicine 12/06/23 Wiley Damon MD [address] [place] [address] Rheumatology 10/23/23 documented as of this encounter
--- OUTSIDE RECORDS SUMMARY | 2024-08-04 11:48 | XMS_ITS | Clinical Summary ---
Author Organization [employer] Address [address] [place] [address] Care Team Providers Care Candy Bar Attendant Name Role Phone Wiley Damon MD Unavailable Unavaila Elizabeth Figueroa DO Primary Care Provider [phone] Allergies No known active allergies Medications Tylenol [...] BY MOUTH DAILY 03/13/20 22 Active Multiple Vitamins-Park als (Vitrum Senior) tablet Take 1 tablet [...] positive this a.m. after attending concert in [place] on Saturday (3 days ago), feverish feeling/chills/fatigue but no n/v/d and wants Paxlovid - states worked well for her last time had Covid. No contraindications. No current COPD exacerbation. E rx sent and states her son will car pick up driver for her this evening. Akilah agrees to [...] specified site Overview (10/24/2023): [facility] hands, R IP joint recurrent [...] Description 08/03/2024 2:45 PM EDT Office Visit [facility] MEDICAL [address] [place] [address] Elizabeth Estrada DO Dermatophytosis (Primary Dx); Loud snoring; Chronic fatigue 08/03/2024 Travel 07/24/2024 Refill [facility] MEDICAL [address] [place] [address] Elizabeth Estrada DO Bronchitis 07/22/2024 Telephone [facility] [address] [place] [address] Elizabeth Estrada DO Care Coordination 07/16/2024 Orders Only [facility] Information Management [address] [place] [address] Elizabeth Estrada DO 06/24/2024 3:00 PM EDT Office Visit [facility] OPTOMETRY [address] [place] [address] Nohemy Downey, OD Superficial punctate keratitis of both eyes (Primary Dx); Posterior vitreous detachment of right eye; Retinal cyst of right eye; Vitreomacular adhesion of left eye 06/19/2024 Population Health Risk Score [facility] [address] [place] [id number] Provider, Population Health Generic 05/10/2024 Refill 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 Not on file Not on [...] Visit [place] [facility] OPTOMETRY [address] [place], [place] [id number] Nohemy Downey, OD [address] [place] [address] Health Maintenance Due Date Last Done Comments [...] Laterality Modality Spine, L-spine Radiographic [place] ging [facility] DO IMG XR PROCEDURES Final Result * XR Foot 1-2 Views Right (07/08/2024 10:29 AM EDT) Anatomical Region Laterality Modality Lower Extremities, Foot Right Radiogra phic Imaging [facility] DO IMG XR PROCEDURES Final Result * XR Foot 1-2 Views Left (07/08/2024 10:19 AM EDT) Anatomical Region Laterality Modality Lower Extremities, Foot Left Radiogra phic Imaging [facility] DO IMG XR PROCEDURES Final Result * [...] (Negative) Lay letter mailed to patient WSN: [id number] Ordering Physician: Alejandra Steen Dictated By: ?Julia Calero MD Dictated Date/Time: ?02/18/24 5:04 pm Reviewed By: ?Julia Calero MD Signed By: ? Julia Calero MD Signed Date/Time: ? 02/18/24 5:04 pm Transcribed By: ? CSB Special Ed Assistant Date/Time: ? 02/18/24 5:01 pm Birads: Procedure [...] (Negative) Lay letter mailed to patient WSN: [id number] Ordering Physician: Alejandra Steen Dictated By: Julia Calero MD Dictated Date/Time: 02/18/24 5:04 pm Reviewed By: Julia Calero MD Signed By: Julia Calero MD Signed Date/Time: 02/18/24 5:04 pm Transcribed By: GABRIEL Special Ed Assistant Date/Time: 02/18/24 5:01 pm Birads: Alejandra Steen CAREGIVER ASSISTED LIVING IMG BI PROCEDURES Liza l Result * (ABNORMAL) POCT glycosylated hemoglobin (Hgb A1c) (01/20/2024 8:45 AM EDT) Pathologist [facility] Hemoglobin A1C 5.7 4.0 - 6.0 % Blood Capillary blood specimen / Unknown 01/20/2024 8:45 AM EDT Elizabeth Estrada DO POINT OF CARE TEST ENTER/EDIT ORDERABLES Final Result * Pap Smear (08/22/2021) Pathologist Replaced by [facility] Pap smear Pap negative, HPV negative Historical [...] [facility] ONE CARE < 65 Care Teams Candy Bar Attendant Relationship Specialty Start Date End Date Elizabeth Estrada DO [address] [facility] [place] [address] PCP - General Family Medicine 12/06/23 Wiley Damon MD [facility] [place] [address] Rheumatology 10/23/23
[2024-08-04 17:43] LABS: MANUAL DIFF FLAG NO
[2024-08-04 17:44] LABS: Basophils Absolute Auto 0.1 X10*3/uL (0.0-0.2); Basophils Percent Auto 0.7 % (0-2); Eosinophils Absolute Auto 0.1 X10*3/uL (0.0-0.4); Eosinophils Percent Auto 1.4 % (0-4); Hematocrit 46.2 % (37.0-47.0); Hemoglobin 15.4 g/dl (12.0-16.0); Imm Gran Abs Auto 0.02 X10*3/uL (0.00-0.03); Imm Gran Pct Auto 0.3 % (0.0-0.4); Lymphocytes Absolute Auto 1.8 X10*3/uL (1.2-4.9); Lymphocytes Percent Auto 23.9 % (20-40); Mean Corpuscular HGB Conc 33.3 g/dl (31.0-35.0); Mean Corpuscular Hemoglobin 30.3 pg (27.0-33.0); Mean Corpuscular Volume 90.9 fL (80.0-98.0); Mean Platelet Volume 9.8 fL (9.4-12.3); Monocytes Absolute Auto 0.8 X10*3/uL (0.1-1.2); Neutrophils Absolute Auto 4.9 x10*3/uL (2.0-8.3); Neutrophils Percent Auto 63.7 % (45-73); Platelet Count 284 X10*3/uL (160-400); Red Blood Count 5.08 X10*6/uL (4.20-5.50); Red Cell Distribution Width 12.2 % (11.0-16.0); White Blood Count 7.6 X10*3/uL (4.8-10.8)
[2024-08-04 18:05] LABS: Alanine Aminotransferase 22 U/L (0-31); Aspartate Amino Transferase 28 U/L (5-31); C Reactive Protein 0.11 mg/dL (< or = 0.50); Estimated Glomerular Filt Rate > 60
[2024-08-04 18:44] LABS: Erythrocyte Sedimentation Rate 3 MM/HR (0-20)
== END 2024-08-04 09:42 | disposition home or self-care (01) ==
LOC: HO.HKASLDS 09:41
PROVIDERS: PCP Family Medicine; Visit Provider Internal Medicine Rheumatology
DX: Z79.899 Other long term (current) drug therapy (principal); Z79.60 Long term (current) use of unspecified immunomodulators and immunosuppressants; M15.4 Erosive (osteo)arthritis; M47.816 Spondylosis without myelopathy or radiculopathy, lumbar region; M54.2 Cervicalgia; M79.671 Pain in right foot; M79.672 Pain in left foot
CPT/HCPCS: 36415; 82565; 84450; 84460; 85025; 85652; 86140; 99212

== ENCOUNTER 2024-11-04 09:28 | Outpatient (AMB) | payer OTHER, SELFPAY ==
--- NOTE | 2024-11-04 09:34 | MHC.OFFVIS ---
Vital Signs 11/04/24 09:35 Height 5 ft 4 in Weight 179 lb 2 oz BMI 30.7 BP 110/74 Blood Pressure Location Lt brachial Position Sitting Pulse 75 Pulse Source Pulse Oximeter Pulse Oximetry (%) 97 Oxygen Delivery Method Room Air Intake Visit Reasons: 3 months follow up Intake Note: Patient presents for follow up on erosive osteoarthritis. Accompanied by: Self / Same As Patient Allergies No Known Allergies Allergy (Verified 11/04/24 09:34) HPI HPI 3 months follow up: Details: She took prednisone 10 mg yesterday with relief in joint pain in her hands. She had her nails done and there was a lesion near her nails that resulted in pruritus. She was treated for fungal infection with a 7 day course of Diflucan with initial benefit but rash reoccurred in multiple areas with pruritus. She has flakes behind her ears that have gotten worse. Denies patch of psoriasis. MS all day [facility] Medical History Erosive (osteo)arthritis Surgical History S/P laparoscopic fundoplication Social History Alcohol intake: current Alcohol intake frequency: other Comment: socially Patient Tobacco Use Status: Former Tobacco user Physical Exam Vital Signs: Last Vital Signs Pulse 75 11/04/24 09:35 BP 110/74 11/04/24 09:35 Pulse Ox 97 11/04/24 09:35 Oxygen Delivery Method Room Air 11/04/24 09:35 BMI result Body Mass Index 30.7 Const Other: General: Comfortable CVS: RRR Respiratory: clear to auscultation bilaterally. Good respiratory effort Skin: Flaky skin behind ears. No plaque psoriasis observed on skin exam of extremities. MSK: Right IP joint swelling and tenderness in hand. She has fusion left 3rd and 2nd right DIPJ. She can make a fist with her hands. Tender bilateral 2nd toes. No dacytlitis. Normal ROM of UE and LE Results Reviewed Results Reviewed: Procedure(s): XR lumbar spine 2-3V Accession Number(s): [id number] cc: Elizabeth Estrada DO; Wiley Damon MD~ CLINICAL HISTORY: M54.50 - Low back pain, unspecified 3 views lumbar spine Comparison: None Findings: Normal vertebral body alignment. No acute fractures or dislocation. Moderate multilevel degenerative change with disc space narrowing most pronounced at L4-L5. There is moderate facet hypertrophy present within the lower lumbar spine. IMPRESSION: No acute findings. Moderate degenerative changes. Assessment & Plan Assessment & Plan (1) Erosive (osteo)arthritis: Comment: She has chronic synovitis of right IP joint on hydroxychloroquine. She is treating her joint pain and swelling with prednisone 10 mg sparingly when pain is uncontrolled. Her joint pain and swelling is responsive to low-dose prednisone for few days. Her clinical presentation over time is concerning me for spondyloarthritis due to asymmetric joint involvement and synovitis of DIPJ in bilateral hands and IPs, with resulting fusion/limited mobility. She has progression of pain now involving bilateral 2nd toes (DIP and PIP) without dactylitis. We discussed add on DMARD therapy with sulfasalazine. Discussed side effects, drug monitoring and benefits of sulfasalazine. Code(s): M15.4 - Erosive (osteo)arthritis Category: Medical Plan: I have asked her to contact her PCP for management of fungal infection. She will then start sulfasalazine 500 mg twice a day. Labs do 4 weeks after starting sulfasalazine with CBC, creatinine, AST and ALT. Information on sulfasalazine given to patient. Continue hydroxychloroquine 300 mg daily. Requesting eye exam for hydroxychloroquine surveillance from [facility] from May or June 2024. Labs for drug monitoring on high-risk medication ordered She will use prednisone 10 mg 1-3 days prn joint flare. Hold Celebrex when on prednisone. Dermatology evaluation for psoriasis Records from [facility] reviewed. I have ordered HLA B27, RF, anti CCP antibody, DESTINEY to labs I will consider MRI right hand with and without contrast at next visit Return to clinic in 3 months (2) Inflammatory arthritis: Code(s): M19.90 - Unspecified osteoarthritis, unspecified site Category: Medical Plan: See above (3) Foot pain, bilateral: Comment: She is experiencing chronic pain in bilateral 2nd and 3rd toes likely due to early OA. Personally reviewed x-ray with patient, which reveals left DIPJ mild spurring not reported by radiologist. I am also concerned that there may be a contributing of inflammatory arthritis contributing to her pain. Code(s): Quirino79.671 - Pain in right foot; M79.672 - Pain in left foot Category: Medical Plan: See above Continue Celebrex 200 mg daily and b.i.d. with increased pain Return to clinic in 3 months (4) Lumbar spondylosis: Comment: Chronic back pain. Pain is uncontrolled. Code(s): M47.816 - Spondylosis without myelopathy or radiculopathy, lumbar region Category: Medical Plan: PT ordered Continue Celebrex 200 mg daily and b.i.d. with increased pain Labs for drug monitoring on chronic NSAID ordered Return to clinic in 3 months (5) Scalp psoriasis: Code(s): L40.9 - Psoriasis, unspecified Category: Medical Plan: Dermatology referral to confirm diagnosis and further management (6) Other senior care (current) drug therapy: Code(s): Z79.899 - Other termite renewal inspector (current) drug therapy Category: Medical Plan: See above (7) Cervicalgia: Comment: Due to myofascial strain. She has benefit on tizanidine 2 mg b.i.d. Code(s): M54.2 - Cervicalgia Category: Medical Plan: Continue tizanidine 2 mg b.i.d. Return to clinic in 3 months Orders: Orders Alanine Aminotransferase Today Z79.899 - Other termite renewal inspector (current) drug therapy Aspartate Amino Transferase Today Z79.899 - Other termite renewal inspector (current) drug therapy Erythrocyte Sedimentation Rate Today Z79.899 - Other senior care (current) drug therapy Erythrocyte Sedimentation Rate 1 Month Z79.60 - termite renewal inspector (current) use of unspecified immunomodulators and immunosuppressants Alanine Aminotransferase 1 Month Z79.60 - shelter (current) use of unspecified immunomodulators and immunosuppressants Aspartate Amino Transferase 1 Month Z79.60 - termite renewal inspector (current) use of unspecified immunomodulators and immunosuppressants DESTINEY Reflex Titer and Pattern Today M15.4 - Erosive (osteo)arthritis Rheumatoid Factor Today M15.4 - Erosive (osteo)arthritis Cyclic Citrullinated Peptide Today M15.4 - Erosive (osteo)arthritis Complete Blood Count Auto Diff Today Z79.899 - Other senior care (current) drug therapy Creatinine Today Z79.899 - Other senior care (current) drug therapy C Reactive Protein Today Z79.899 - Other senior care (current) drug therapy Complete Blood Count Auto Diff 1 Month Z79.60 - shelter (current) use of unspecified immunomodulators and immunosuppressants C Reactive Protein 1 Month Z79.60 - shelter (current) use of unspecified immunomodulators and immunosuppressants Creatinine 1 Month Z79.60 - termite renewal inspector (current) use of unspecified immunomodulators and immunosuppressants HLA B27 Today M15.4 - Erosive (osteo)arthritis Referrals Dermatology Referral L40.9 - Psoriasis, unspecified Medications: New sulfasalazine Labs due in 1 month 0.5 grams PO BID 60 tabs 0RF Coding Level of Care Code Est Pt Level 4 (31854) Complex EM visit Add On G2211 Diagnoses Erosive (osteo)arthritis M15.4 Inflammatory arthritis M19.90 Foot pain, bilateral M79.671; M79.672 Lumbar spondylosis M47.816 Scalp psoriasis L40.9 Other senior care (current) drug therapy Z79.899 Cervicalgia M54.2
[2024-11-04 09:35] VITALS: BP 110/74; PULSE 75; O2SAT 97; BMI 30.7
--- OUTSIDE RECORDS SUMMARY | 2024-11-04 09:58 | XMS_ITS | Patient Health Record ---
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 Problem [id number] Constipation, unspecified constipation type (K59.00) Active confirmed Plan Of Treatment No Information Insurance Providers Payer Name Payer Address Payer Phone Subscriber Number Group Number Insured Name Patient Relationship to Insured Coverage Start Date Coverage End Date MEDICARE OF [place] [address] [place] [address] [id number] CESARIO SCHWAB Self - patient is the insured MEDICAID OF [facility] [address] [place] [address] [id number] CESARIO SCHWAB Self - patient is the insured Medical (General) History Medical History History ICD Code Denies AK,DM,CVA,Lung disease,renal dise ase Erosive osteoarthritis COPD 3 negative colonoscopies Curiel's esophagus/GERD Constipation Surgical History Surgery Date(Month/Year) Fundoplication hiatal hernia Dr. Edvin porter 2019
--- OUTSIDE RECORDS SUMMARY | 2024-11-04 09:58 | XMS_ITS | Encounter Summary ---
Author Organization [facility] Address [address] [place] [phone] Phone Care Team Providers Care Market Maker Name Role Phone Elier Malik WELD INSPECTOR Primary Care Provide r Anjelica Harris WELD INSPECTOR Primary Care Provide r Encounter Details Date Type Department Care Team (Late st Contact Info) Description 02/21/2021 Ancillary Orders [facility],Outside Imaging [address] [place] [address] System, Provider Not In, [facility] [address] [address] Social History Tobacco Use Types Packs/Day Years Used Date Smoking Tobacco: Every Day Cigarettes 0.3 40 Smokeless Tobacco: Never Alcohol Use Standard Drinks/Week Comments Not Currently 0 (1 standard drink = 0.6 oz pur e alcohol) occasionaly Comments No Sex and Gender Information Value Date Recorded Sex Assigned at Not on file Legal Sex Female 10:10 AM EDT Gender Identity Not on file Sexual Orientation Not on file documented as of this encounter Plan of Treatment Scheduled Procedures Name Priority Associated Diagnoses Date/Ti me COLONOSCOPY Adenomatous polyp of colon, unspecified part of colon documented as of this encounter Results * CT Abdomen/Pelvis Outside (No Interpretation) (09/24/2019 12:00 AM EDT) Narrative SYSTEMGENERATED, DOCUMENTATION - 02/21/2021 9:50 AM EST This study is for PACS storage only and not for interpretation. us Provider Not In System PhD IMG OUTSIDE IMAGING W /OUT INTERPRETATION Final Result documented in this encounter Visit Diagnoses Not on filedocumented in this encounter Care Teams Market Maker Relationship Specialty Start Date End Date Elier Malik NP PCP - General 03/19/19 08/27/22 Anjelica Harris NP [address] [place] [address] PCP - General Nurse Practitioner 08/28/22 documented as of this encounter Additional Source Comments The information contained in this document represents components of the legal health record. It is not the complete legal health record.[facility]
--- OUTSIDE RECORDS SUMMARY | 2024-11-04 09:58 | XMS_ITS | Encounter Summary ---
Author Organization [employer] Address [address] [place] [address] Care Team Providers Care Telepathist Name Role Phone Wiley Damon MD Unavailable Unavaila ble Elizabeth Estrada DO Primary Care Provider [phone] Encounter Details Date Type Department Care Team (Late st Contact Info) Description 01/25/2024 Orders Only [facility] Information Management [address] [place] [address] Elizabeth Estrada DO [address] [place] [address] Social History Tobacco Use Types Packs/Day Years [...] Start Date Job End Date Stay at [employer] Mom Not on file Not on file Not on file documented as of this encounter Plan of Treatment Upcoming Encounters Date Type Department Care Team (Late st Contact Info) Description 11/27/2024 10:15 AM EDT Office Visit [place] [facility] MED[facility] [address] [place] [address] Elizabeth Estrada DO [address] [place] [address] documented as of this encounter Procedures Procedure [...] (Negative) Lay letter mailed to patient WSN: [id number] Ordering Physician: Alejandra Steen Dictated By: Julia Calero MD Dictated Date/Time: 02/18/24 5:04 pm Reviewed By: Julia Calero MD Signed By: Julia Calero MD Signed Date/Time: 02/18/24 5:04 pm Transcribed By: GABRIEL Mannequin Maker Date/Time: 02/18/24 5:01 pm Birads: Procedure Note Donotuseinterpreter, [...] (Negative) Lay letter mailed to patient WSN: [id number] Ordering Physician: Alejandra Steen Dictated By: Julia Calero MD Dictated Date/Time: 02/18/24 5:04 pm Reviewed By: Julai Calero MD Signed By: Julia Calero MD Signed Date/Time: 02/18/24 5:04 pm Transcribed By: GABRIEL Mannequin Maker Date/Time: 02/18/24 5:01 pm Birads: Aleajndra Steen SUPERVISOR MAPPING IMG BI PROCEDURES Liza l Result * CBC auto differential (10/17/2023 8:59 AM EDT) Blood Venous blood specimen / Unknown Elizabeth Estrada DO LAB BLOOD ORDERABLES Final Res ult documented in this encounter Visit Diagnoses Not on filedocumented in this encounter Additional Health Concerns Assessment Noted Time PHQ-9 Depression Total Score: 21 023 11:43 AM EDT documented as of this encounter Care Teams Telepathist Relationship Specialty Start Date End Date Elizabeth Estrada DO [address] [place] [address] PCP - General Family Medicine 12/06/23 Wiley Damon MD [address] [place] [phone] Rheumatology 10/23/23 documented as of this encounter
== END 2024-11-04 10:27 | disposition home or self-care (01) ==
LOC: HO.RHES 09:28
PROVIDERS: PCP Family Medicine; Visit Provider Internal Medicine Rheumatology
DX: M15.4 Erosive (osteo)arthritis (principal); M19.90 Unspecified osteoarthritis, unspecified site; M79.671 Pain in right foot; M79.672 Pain in left foot; M47.816 Spondylosis without myelopathy or radiculopathy, lumbar region; L40.9 Psoriasis, unspecified; Z79.899 Other long term (current) drug therapy; M54.2 Cervicalgia
CPT/HCPCS: 99214; G2211

== ENCOUNTER → 2024-11-04 09:28 | Outpatient (BNVA) | payer OTHER, SELFPAY | PROVIDERS: PCP Family Medicine; Visit Provider Internal Medicine Rheumatology | DX: M15.4 Erosive (osteo)arthritis (principal); M79.671 Pain in right foot; M79.672 Pain in left foot; M47.816 Spondylosis without myelopathy or radiculopathy, lumbar region; L40.9 Psoriasis, unspecified; Z79.899 Other long term (current) drug therapy; M54.2 Cervicalgia; Z79.60 Long term (current) use of unspecified immunomodulators and immunosuppressants | CPT/HCPCS: 99212 ==

== ENCOUNTER 2024-12-04 11:49 | Outpatient (REF) | payer OTHER, SELFPAY ==
--- OUTSIDE RECORDS SUMMARY | 2023-07-02 06:50 | XMS_ITS ---
Author Organization [facility] Address [address] [place] [id number] Care Team Providers Care Vocational Rehabilitation Teacher Name Role Phone Eliane Bourne Primary Care Provider Song Sandoval [phone] REASON FOR VISIT Patient presents today for IBS Encounters Encounter Location Date Provider Diagnosis [facility] [address] [place] [phone] 07/02/2023 Song Villar Plan Of Treatment No Information Progress Notes * CESARIO SCHWABDOB: [birth year] (59 yo F)Acc No.[id number]:07/02/2023 Progress Notes Patient: CESARIO HERNANDEZ Provider: Brian Villar MD :[id number] A ge:58 Y S ex:Female Date:07/02/2023 Address:[address] [place] [id number] Pcp:Lidya Pelayo Subjective: * Chief Complaints: * 1 . Patient presents today for IBS. * Medical History: Objective: * Vitals: Assessment: Plan: * Treatment: * * The named appointment provid er may or may not be the originator of this progress note, and it is not deemed complete until electronically signed by the appointment provider. Sign off status: Pending * Provider: Brian Villar MD Date: 0 07/02/2023 Generated for Printi ng/Faxing/eTransmitting on: 0 12/04/2024 12:46 PM EDT
--- NOTE | ~2024-12-04 | XR_ITS ---
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 She has background erosive Three views of the right and left hand. COMPARISON: None provided. FINDINGS: Right hand: Distal radius and ulna appear intact. Carpals, metacarpals and phalanges of the right hand appear intact. Prominent osteophytes and joint space narrowing with Gull wing deformity along the interphalangeal joints of the 1st, 3rd, 4th and 5th DIP joints. No lytic or sclerotic lesion. No periostitis. Left hand: Distal radius and ulna appear intact. Carpals and metacarpals appear intact. Phalanges appear intact. There is fusion of the 3rd DIP joint. Prominent osteophytes, joint space narrowing golfing deformity present throughout the DIP joints with mild spurring of the 2nd PIP joint. No lytic or sclerotic lesion. No periostitis. IMPRESSION: 1. No radiographic evidence of acute injury to the right or left hand. 2. 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 3. Fusion of the left 3rd DIP joint. This document has been electronically signed by: Amarjit Mendoza MD on 12/05/2024 14:28:34
[2024-12-04 12:01] LABS: MANUAL DIFF FLAG NO
[2024-12-04 12:19] LABS: Hematocrit 41.3 % (37.0-47.0); Hemoglobin 13.8 g/dl (12.0-16.0); Imm Gran Abs Auto 0.01 X10*3/uL (0.00-0.03); Imm Gran Pct Auto 0.2 % (0.0-0.4); Lymphocytes Absolute Auto 1.6 X10*3/uL (1.2-4.9); Mean Corpuscular HGB Conc 33.4 g/dl (31.0-35.0); Mean Corpuscular Hemoglobin 30.5 pg (27.0-33.0); Mean Corpuscular Volume 91.2 fL (80.0-98.0); NRBC Abs Auto 0.000 X10*3/uL (0.0-0.012); NRBC Pct Auto 0.0 /100WBC (0.0-0.2); Platelet Count 270 X10*3/uL (160-400); Red Blood Count 4.53 X10*6/uL (4.20-5.50); White Blood Count 4.6 X10*3/uL (4.8-10.8)
--- OUTSIDE RECORDS SUMMARY | 2024-12-04 12:46 | XMS_ITS | Clinical Summary ---
Author Organization [employer] Address [address] [place] [address] Care Team Providers Care Crop And Soil Scientist Name Role Phone Wiley Damon MD Unavailable Jaxsona Elizabeth Figueroa DO Primary Care Provider [phone] Allergies No known active allergies Medications Tylenol Extra Strength 500 MG tablet Active biotin 1000 MCG tablet Take 1,000 mcg by mouth in the morning. Active celecoxib (CeleBREX) 200 MG capsule 1 capsule in the morning. Active hydroxychloroquin e (Plaquenil) 200 MG tablet Active Multiple Vitamins-Minerals (Vitrum Senior) tablet Take 1 tablet by mouth in the morning. Active fluticasone (Flonase) 50 MCG/ACT nasal spray 1 spray in the morning. Active Diclofenac Sodium 1 % gel Active LORazepam (Ativan) 0.5 MG tabletIndications :Anxiety Take 1 tablet (0.5 mg) by mouth if needed in the morning and at bedtime for anxiety for up to 28 days. 56 tablet Active albuterol (2.5 MG/3ML) 0.083% nebulizer solutionIndicatio ns:Chronic obstructive pulmonary disease, unspecified COPD type (CMS/HCC) Take 2.5 mg by nebulization if needed in the morning, at noon, in the evening, and at bedtime for wheezing or shortness of breath. 120 mL Active traMADol (Ultram) 50 MG tablet Take 50 mg by mouth. Active baclofen (Lioresal) 10 MG tablet Take 10 mg by mouth if needed. 025 Active clobetasol (Temovate) 0.05 % cream Apply topically if needed in the morning and at bedtime (itching). 60 g 025 Active azelastine (Optivar) 0.05 % ophthalmic solutionIndicatio ns:Allergic conjunctivitis of both eyes Administer 1 drop into both eyes 2 times daily. 6 mL 3 025 2025 Active Additional Information Patient not taking.Reported on 11/27/2024 hydrOXYzine HCl (Atarax) 25 MG tabletIndications :Opiate withdrawl Take 1 tablet (25 mg) by mouth every 8 (eight) hours if needed for itching for up to 14 days. 42 tablet 025 Active albuterol 108 (90 Base) MCG/ACT inhalerIndication s:Bronchitis Inhale 2 puffs every 6 (six) hours if needed for wheezing. 8.5 g 2 025 Active Tirzepatide (Mounjaro) 2.5 MG/0.5ML solution auto-injectorIndi cations:Obstructi ve sleep apnea,Class 1 obesity without serious comorbidity with body mass index (BMI) of 31.0 to 31.9 in adult, unspecified obesity type Inject 0.25 mg under the skin 1 (one) time per week. 2 mL 025 Active tiZANidine (Zanaflex) 2 MG tablet Take 2 mg by mouth if needed in the morning and at bedtime. 024 2024 Discontinued Active Problems Problem Noted Date Diagnosed Date COVID-19 03/17/2024 Assessment & Plan (03/17/2024 6:24 PM EST): COVID home test positive this a.m. after attending concert in [place] (3 days ago), feverish feeling/chills/fatigue but no n/v/d and wants Paxlovid - states worked well for her last time had Covid. No contraindications. No current COPD exacerbation. E rx sent and states her son will picker operator for her this evening. Akilah agrees [...] specified site [facility]10[facility]24/2023[facility] hands, R IP joint [...] Encounters Date Type Department Care Team Description 11/27/2024 10:15 AM EDT Office Visit [address] [address] Elizabeth Estrada DO Obstructive sleep apnea (Primary Dx); Class 1 obesity without serious comorbidity with body mass index (BMI) of 31.0 to 31.9 in adult, unspecified obesity type 11/27/[address] [address] Wanda Cheney Prior Authorization (KHUSHBU Baldwin) 11/27/2024 Travel 11/18/[address] [address] Elizabeth Estrada DO 11/17/2024 Results Follow-Up [address] [address] Elizabeth Estrada DO Polysomnography 10/06/2024 Refill [facility] MEDICAL [address] [place] [address] Elizabeth Estrada DO Bronchitis from Last 3 Months Immunizations Immunization Administration Dates Next Due INFLUENZA INJECTABLE QUADRIV [...] Answer Date Recorded Patient Health Questionnaire-9 Score 10 11/27/2024 Patient Health Questionnaire-9 Score 10 11/27/2024 Last PHQ-9: Questionnaire Data Not on file 0 11/27/2024 Housing Stability Answer Date Recorded What is [...] Answer Date Recorded Patient Health Questionnaire-2 Score 2 11/27/2024 Internet Access Answer Date Recorded Internet Access [...] Start Date Job End Date Stay at [facility] Not on file Not on file Not on file Last Filed Vital Signs Vital Sign Reading Time Taken Comments Blood Pressure 114/77 11/27/2024 10:28 AM EDT Pulse 73 11/27/2024 10:28 AM EDT Temperature 35.9 C (96.6 F) 11/27/2024 10:28 AM EDT Respiratory Rate 16 08/24/2024 3:53 PM EDT Oxygen Saturation 96% 11/27/2024 10:28 AM EDT Inhaled Oxygen Concentration - - Weight 81.6 kg (180 lb) 11/27/2024 10:28 AM EDT Height 160 cm (5' 3 ) 11/27/2024 10:28 AM EDT Body Mass Index 31.89 11/27/2024 10:28 AM EDT Plan of Treatment Upcoming Encounters Date Type Department Care Team (Late st Contact Info) Description 12/23/2024 10:30 AM EDT [place] Visit [place] [facility] OPTOMETRY [address] [place] [address] Nohemy Downey, OD [address] [place] [address] Health Maintenance Due Date Last Done Comments [...] Cancer Screening 08/22/2024 Pap Smear 08/22/2024 08/22/2021 Influenza Vaccine (#1) 2024 , 12/05/2022, 02/23/2022, Additional history exists Alcohol/Substance Use Screening 01/19/2025 01/20/2024 Diabetes: Hemoglobin A1C 01/19/2025 024, 02/23/2022, 08/07/2021, Additional history exists SDOH Screening 01/19/2025 01/20/2024 Depression Monitoring 05/30/2025 11/27/2024, 025 Disability Screening 08/29/2025 08/29/2024 Tobacco Screening 08/29/2025 08/29/2024 Mammogram 02/17/2026 02/18/2024, 06/0 10/2021, 09/12/2021, Additional history exists Lipid Panel 02/23/2027 02/23/2022, 050 05/2021, 07/06/2020, Additional history exists Colonoscopy 11/02/2029 11/03/2019, 10/07, 06/18/2016 Colorectal Cancer Screening 11/02/2029 DTaP/Tdap/Td Vaccines (4 - Td or Tdap) 12/16/2030 12/16/2020, 04/27/2013, 11/23/2010, Additional history exists RSV Patients and Patients Aged 60 years or older (1 - 1-dose 75+ series) 2041 Hepatitis C Screening Completed 10/15/2016 Zoster Vaccines Completed 03/27/2023, 11/08, 06/23/2021 HIB Vaccines Aged Out No longer eligi ble based on patient's age to complete this topic HPV Vaccines Aged Out No longer eligi ble based on patient's age to complete this topic IPV Vaccines Aged Out No longer eligi ble based on patient's age to complete this topic Meningococcal B Vaccine Aged Out No l onger eligible based on patient's age to complete [...] Procedure Name Priority Date/Time Associated Diagnosis Comments POLYSOMNOGRAM Routine 11/12/2024 Loud snoring Chronic fatigue BI MAMMOGRAM SCREENING TOMOSYNTHESIS BILATERAL Routine 02/18/2024 10:58 AM EST POCT GLYCOSYLATED HEMOGLOBIN (HGB A1C) Routine 01/20/2024 8:45 AM EDT Prediabetes Full PROPHYLAXIS - ADULT Routine 10/25/2022 2:00 PM EDT BITEWINGS - 4 RADIOGRAPHIC IMAGES Routine 10/25/2022 2:00 PM EDT PERIODIC ORAL EVALUATION - ESTABLISHED PATIENT Routine 10/25/2022 2:00 PM EDT LIPID PANEL, STANDARD Routine 02/23/2022 10:06 AM EST HM PAP/HPV Routine 08/22/2021 HM COLONOSCOPY Routine 11/03/2019 INTRAORAL - COMPLETE SERIES OF RADIOGRAPHIC IMAGES Routine 06/03/2019 12:00 AM EST HEPATITIS C ANTIBODY (EXTERNAL RESULTS ONLY) Routine 10/15/2016 1:46 PM EDT from Last 3 Months or Most Recently Relevant to Health Maintenance Results * Polysomnography (11/12/2024) [facility] ORDERABLES Final Result * BI Mammogram Screening Tomosynthesis [...] (Negative) Lay letter mailed to patient WSN: [id number] Ordering Physician: Alejandra Steen Dictated By: Julia Calero MD Dictated Date/Time: 02/18/24 5:04 pm Reviewed By: Julia Calero MD Signed By: Julia Calero MD Signed Date/Time: 02/18/24 5:04 pm Transcribed By: GABRIEL Personnel Supervisor Date/Time: 02/18/24 5:01 pm Birads: Procedure Note [...] (Negative) Lay letter mailed to patient WSN: [id number] Ordering Physician: Alejandra Steen Dictated By: Julia Calero MD Dictated Date/Time: 02/18/24 5:04 pm Reviewed By: Julia Calero MD Signed By: Julia Calero MD Signed Date/Time: 02/18/24 5:04 pm Transcribed By: GABRIEL Personnel Supervisor Date/Time: 02/18/24 5:01 pm Birads: Alejandra Steen OIL AGENT IMG BI PROCEDURES Liza l Result * (ABNORMAL) POCT glycosylated hemoglobin (Hgb A1c) (01/20/2024 8:45 AM EDT) Hemoglobin A1C 5.7 4.0 - 6.0 % Blood Capillary blood specimen / Unknown 01/20/2024 8:45 AM EDT Elizabeth Estrada DO POINT OF CARE TEST ENTER/EDIT ORDERABLES Final Result * (ABNORMAL) -Lipid Panel (02/23/2022 10:06 AM EST) LDL CHOLESTEROL, CALCULATED 136(H) (0-130) MG/DL CONVERTED LEGACY LABS CHOLESTEROL, TOTAL 271(H) (<200) MG/DL CONVERTED LEGACY LABS HDL CHOL 113 (>39) MG/DL CONVERTED LEGACY LABS NON HDL CHOLESTEROL (CALC) 158 (<160) MG/DL CONVERTED LEGACY LABS TRIGLYCERIDE 112 (<150) MG/DL CONVERTED LEGACY LABS 02/23/2022 10:0 6 AM EST Anjelica Harris OIL AGENT LAB BLOOD ORDERABLES Liza l Result CONVERTED LEGACY LABS * Pap Smear (08/22/2021) Pap smear Pap negative, HPV negative Historical Provider MD HEALTH MAINTENANCE Final Result * (ABNORMAL) Colonoscopy (11/03/2019) Colonoscopy Abnormal(A ) Normal Historical Provider HEALTH MAINTENANCE Final Result * Hepatitis C Antibody (10/15/2016 1:46 PM EDT) Hepatitis C Antibody Nonreactive Blood 10/15/2016 1:46 PM EDT Historical Provider POINT OF CARE TEST ENTER/ EDIT ORDERABLES Final Result from Last 3 Months or Most Recently Relevant to Health Maintenance Insurance [facility] < 65 KHUSHBU BHAT [id number] CCA ONE CARE < 65 VSP Care Teams Crop And Soil Scientist Relationship Specialty Start Date End Date Elizabeth Estrada DO [address] [place] [address] PCP - General Family Medicine 12/06/23 Wiley Damon MD [address] [place] [address] Rheumatology 10/23/23
--- OUTSIDE RECORDS SUMMARY | 2024-12-04 12:46 | XMS_ITS | Encounter Summary ---
Author Organization [facility] Address [address] [facility] [address] [facility] [address] [place] [address] Phone Care Team Providers Care Hoop Riveter Name Role Phone Elier Malik REPERTOIRE MANAGER Primary Care Provide r Anjelica Harris REPERTOIRE MANAGER Primary Care Provide r Encounter Details Date Type Department Care Team (Late st Contact Info) Description 02/21/2021 Ancillary Orders [facility],Outside Imaging [address] [place] [address] System, Provider Not In, [facility] [address] [address] Social History Tobacco Use Types Packs/Day Years [...] on filedocumented in this encounter Care Teams Hoop Riveter Relationship Specialty Start Date End Date Elier Malik NP PCP - General 03/19/19 08/27/22 Anjelica Harris NP [address] [place] [address] PCP - General Nurse Practitioner 08/28/22 documented as of this encounter Additional Source Comments The information contained in this document represents components of the legal health record. It is not the complete legal health record.[facility]
--- OUTSIDE RECORDS SUMMARY | 2024-12-04 12:46 | XMS_ITS | Encounter Summary ---
Author Organization [facility] Address [address] [facility] [address] [place] [address] Phone Care Team Providers Care Fire Control Assistant Name Role Phone Elier Malik PERMIT AGENT Primary Care Provide r Anjelica Harris PERMIT AGENT Primary Care Provide r Encounter Details Date Type Department Care Team (Late st Contact Info) Description 02/09/2021 Procedure Pass [address] [place] [address] Social History Tobacco Use Types Packs/Day Years [...] of colon documented as of this encounter Visit Diagnoses Not on filedocumented in this encounter Care Teams Fire Control Assistant Relationship Specialty Start Date End Date Elier Malik NP PCP - General 03/19/19 08/27/22 Anjelica Harris NP [address] [place] [address] PCP - General Nurse Practitioner 08/28/22 documented as of this encounter Additional Source Comments The information contained in this document represents components of the legal health record. It is not the complete legal health record.[facility]
--- OUTSIDE RECORDS SUMMARY | 2024-12-04 12:46 | XMS_ITS | Encounter Summary ---
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 Not on file Not on file Not on file documented as of this encounter Plan of Treatment Upcoming Encounters Date Type Department Care Team (Late st Contact Info) Description 12/23/2024 10:30 AM EDT Office Visit [place] [facility] OPTOMETRY [address] [place] [address] Nohemy Downey, TYRONE [address] [place] [address] documented as of this encounter Procedures Procedure [...] (Negative) Lay letter mailed to patient WSN: [id number] Ordering Physician: Alejandra Steen Dictated By: Julia Calero MD Dictated Date/Time: 02/18/24 5:04 pm Reviewed By: Julia Calero MD Signed By: Julia Calero MD Signed Date/Time: 02/18/24 5:04 pm Transcribed By: GABRIEL Card Decorator Date/Time: 02/18/24 5:01 pm Birads: Procedure Note [...] (Negative) Lay letter mailed to patient WSN: [id number] Ordering Physician: Alejandra Steen Dictated By: Julia Calero MD Dictated Date/Time: 02/18/24 5:04 pm Reviewed By: Julia Calero MD Signed By: Julia Calero MD Signed Date/Time: 02/18/24 5:04 pm Transcribed By: GABRIEL Card Decorator Date/Time: 02/18/24 5:01 pm Birads: Alejandra Steen DOUGH MIXER HELPER IMG BI PROCEDURES Liza l Result [...] documented as of this encounter Care Teams Outdoor Power Equipment Mechanic Relationship Specialty Start Date End Date Elizabeth Estrada DO [address] [place] [address] PCP - General Family Medicine 12/06/23 Wiley Damon MD [address] [place] [phone] Rheumatology 10/23/23 documented as of this encounter
--- OUTSIDE RECORDS SUMMARY | 2024-12-04 12:46 | XMS_ITS | Encounter Summary ---
Author Organization [facility] Address [address] [facility] [address] [place] [address] Phone Care Team Providers Care Bistro Attendant Name Role Phone Elier Malik PHARMACOLOGY PROFESSOR Primary Care Provide r Anjelica Harris PHARMACOLOGY PROFESSOR Primary Care Provide r Encounter Details Date Type Department Care Team (Late st Contact Info) Description 11/03/2019 Procedure Pass [facility] Endoscopy Admitting Dept Virtual Department [address] [place] [address] Social History Tobacco Use Types Packs/Day Years [...] on filedocumented in this encounter Care Teams Bistro Attendant Relationship Specialty Start Date End Date Elier Malik NP PCP - General 03/19/19 08/27/22 Anjelica Harris NP [address] [place] [address] PCP - General Nurse Practitioner 08/28/22 documented as of this encounter Additional Source Comments The information contained in this document represents components of the legal health record. It is not the complete legal health record.[facility]
--- OUTSIDE RECORDS SUMMARY | 2024-12-04 12:46 | XMS_ITS | Encounter Summary ---
Author Organization [employer] Address [address] 7[address] [place] [address] Care Team Providers Care Hired Help Name Role Phone Wiley Damon MD Unavailable Unavaila ble Elizabeth Estrada DO Primary Care Provider [phone] Encounter Details Date Type Department Care Team (Late st Contact Info) Description 11/17/2024 Results Follow-Up [facility] MEDICAL [address] [place] [address] Elizabeth Estrada DO [address] [place] [address] Polysomnography Social History Tobacco Use Types Packs/Day Years [...] Start Date Job End Date 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 Not on file Not on file Not on file documented as of this encounter Plan of Treatment Upcoming Encounters Date Type Department Care Team (Late st Contact Info) Description 12/23/2024 10:30 AM EDT Office Visit [facility] OPTOMETRY [address] [place] [address] Nohemy Downey, TYRONE [address] [place] [address] documented as of this encounter Visit Diagnoses Not on filedocumented in this encounter Additional Health Concerns Assessment Noted Time PHQ-9 Depression Total Score: 21 023 11:43 AM EDT documented as of this encounter Care Teams Hired Help Relationship Specialty Start Date End Date Elizabeth EstradaDO [address] [place] [address] PCP - General Family Medicine 12/06/23 Wiley Damon MD [facility] [place] [address] Rheumatology 10/23/23 documented as of this encounter
--- OUTSIDE RECORDS SUMMARY | 2024-12-04 12:46 | XMS_ITS | Patient Health Record ---
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 Problem [id number] Constipation, unspecified constipation type (K59.00) Active confirmed Plan Of Treatment No Information Insurance Providers Payer Name Payer Address Payer Phone Subscriber Number Group Number Insured Name Patient Relationship to Insured Coverage Start Date Coverage End Date MEDICARE OF [place] [address] [place] [address] [id number] CESARIO SCHWAB Self - patient is the insured MEDICAID OF [facility] [address] [place] [address] [id number] CESARIO SCHWAB Self - patient is the insured Medical (General) History Medical History History ICD Code Denies [place],DM,CVA,Lung disease,renal dise ase Erosive osteoarthritis COPD 3 negative colonoscopies Curiel's esophagus/GERD Constipation Surgical History Surgery Date(Month/Year) Fundoplication hiatal hernia Dr. Edvin porter 2019
--- OUTSIDE RECORDS SUMMARY | 2024-12-04 12:46 | XMS_ITS | Encounter Summary ---
Author Organization [employer] Address [address] [facility] [place] [address] Care Team Providers Care Biological Engineer Name Role Phone Wiley Damon MD, Alexandra DO Primary Care Provider [phone] Reason for Visit * Reason Onset Date Comments Prior Authorization 11/27/2024 KHUSHBU Baldwin Encounter Details Date Type Department Care Team (Late st Contact Info) Description 11/27/2024 Telephone [facility] MEDICAL [address] [place], [place] [id number] Wanda Cheney Prior Authorization (KHUSHBU Baldwin) Social History Tobacco Use Types Packs/Day Years [...] t he electric, gas, oil or water [employer] threatened to shut off services in your [...] Start Date Job End Date 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 Question Answer Date of Assessment Author Patient Health Questionnaire-2 Score 2 11/07 10:35 AM EDT Rob Phillips * Little interest or pleasure in doing things Answer Date of Assessment Author More than half the days 11/27/2024 10:35 AM EDT Rob Phillips * Feeling down, depressed, or hopeless Answer Date of Assessment Author Not at all 11/27/2024 10:35 AM EDT Rob Phillips * Trouble falling or staying asleep, or sleeping too much Answer Date of Assessment Author Nearly every day 11/27/2024 10:35 AM EDT Rob Phillips * Feeling tired or having little energy Answer Date of Assessment Author Nearly every day 11/27/2024 10:35 AM EDT Rob Phillips * Poor appetite or overeating Answer Date of Assessment Author Several days 11/27/2024 10:35 AM EDT Rob Phillips * Feeling bad about yourself - or that you are a failure or have let yourself or your family down Answer Date of Assessment Author Not at all 11/27/2024 10:35 AM EDT Rob Phillips * Trouble concentrating on things, such as reading the newspaper or watching television Answer Date of Assessment Author Several days 11/27/2024 10:35 AM EDT Rob Phillips * Moving or speaking so slowly that other people could have noticed? Or the opposite - being so fidgety or restless that you have been moving around a lot more than usual. Answer Date of Assessment Author Not at all 11/27/2024 10:35 AM Rob Chopra * Thoughts that you would be better off or hurting yourself in some way Answer Date of Assessment Author Not at all 11/27/2024 10:35 AM EDT Rob Phillips * Patient Health Questionnaire-9 Score Answer Date of Assessment Author 10 11/27/2024 10:35 AM EDT Rob Phillips * How difficult have these problems made it for you to do your work, take care of things at home, or get along with other people? Answer Date of Assessment Author Somewhat difficult 11/27/2024 10:35 AM EDT Rob Montiel * Over the last 2 weeks, how often have you been bothered by any of the following problems? Question Answer Date of Assessment Author Feeling nervous, anxious, or on edge 1 11/07 10:36 AM EDT Econom, Rob Not being able to stop or co ntrol worrying 1 11/27/2024 10:36 AM EDT Alan Rob Worrying too much about diff erent things 1 11/27/2024 10:36 AM EDT Econom Rob Trouble relaxing 1 11/27/2024 10:36 AM EDT Econom Rob Being so restless that it is hard to sit still 0 11/27/2024 10:36 AM EDT Econom Rob Becoming easily annoyed or irritable 0 11/07 10:36 AM EDT Econom Rob Feeling afraid as if somethi ng awful might happen 0 11/27/2024 10:36 AM EDT Econom Rob MAC-7 Total Score 4 11/27/2024 10:36 AM EDT Alan Rob documented as of this encounter Miscellaneous Notes * Telephone Encounter - Wanda Cheney - 11/27/2024 1:25 PM EDT KHUSHBU Baldwin. Waiting on note. documented in this encounter Plan of Treatment Upcoming Encounters Date Type Department Care Team (Late st Contact Info) Description 12/23/2024 10:30 AM EDT [place] [facility] OPTOMETRY [address] [place] [address] Nohemy Downey, TYRONE [address] [place] [address] documented as of this encounter Visit Diagnoses Not on filedocumented in this encounter Additional Health Concerns Assessment Noted Time PHQ-9 Depression Total Score: 10 025 10:35 AM EDT documented as of this encounter Care Teams Biological Engineer Relationship Specialty Start Date End Date Elizabeth Estrada DO [address] [place] [address] PCP - General Family Medicine 12/06/23 Wiley Damon MD [address] [place] [phone] Rheumatology 10/23/23 documented as of this encounter
--- OUTSIDE RECORDS SUMMARY | 2024-12-04 12:47 | XMS_ITS | Encounter Summary ---
Author Organization [facility] Address [address] [facility] [address] [place] [address] Phone Care Team Providers Care Sales And Marketing Agent Name Role Phone Anjelica Harris NP Primary Care Provide r Encounter Details Date Type Department Care Team (Late st Contact Info) Description 10/19/2022 Procedure Pass OR Admitting Dept - Virtual Department [address] [place] [address] Social History Tobacco Use Types Packs/Day Years Used Date Smoking Tobacco: Every Day Cigarettes 0.3 40 Smokeless Tobacco: Never Alcohol Use Standard Drinks/Week Comments Not Currently 0 (1 standard drink = 0.6 oz pur e alcohol) occasionaly Education Answer Date Recorded Are you interested in more education? Not on duran e 08/03/2022 Are you concerned about learning? Not on file 08/03/2022 No 08/03/2022 No 08/03/2022 Digital Access Answer Date Recorded No 08/28/2022 No 08/28/2022 No 08/28/2022 Reliable internet access at home? Not on file 08/28/2022 Device with a working camera? Not on file Comments No Sex and Gender Information Value [...] on filedocumented in this encounter Care Teams Sales And Marketing Agent Relationship Specialty Start Date End Date Anjelica Harris NP [address] [place] [address] PCP - General Nurse Practitioner 08/28/22 documented as of this encounter Additional Source Comments The information contained in this document represents components of the legal health record. It is not the complete legal health record.[facility]
--- OUTSIDE RECORDS SUMMARY | 2024-12-04 12:47 | XMS_ITS | Encounter Summary ---
Author Organization [facility] Address [address] [facility] 7t [place] [address] Care Team Providers Care Broach Setter Name Role Phone Anjelica Harris Primary Care Provider Un available Eliane Lora Primary Care Provider Wiley Winters MD Unavailable Elizabeth Gu DO Primary Care Provider [phone] Encounter Details Date Type Department Care Team [...] Description 12/23/2024 10:30 AM EDT Office Visit [place] [facility] OPTOMETRY [address] [place] [address] Nohemy Downey OD [address] [place] [address] documented as of this encounter Visit Diagnoses Not on filedocumented in this encounter Care Teams Broach Setter Relationship Specialty Start Date End Date Anjelica Harris FNP PCP - General Family Medicine 02/23/22 12/30/22 Eliane Lora PA PCP - General Family Medicine 12/31/22 12/05/23 Elizabeth Estrada DO [address] [place] [address] PCP - General Family Medicine 12/06/23 [place] [address] [place] [phone] Rheumatology 10/23/23 documented as of this encounter
--- OUTSIDE RECORDS SUMMARY | 2024-12-04 12:47 | XMS_ITS | Encounter Summary ---
Author Organization [facility] Address [address] [facility] 7t [place] [address] Care Team Providers Care Radio Interference Investigator Name Role Phone Anjelica Harris Primary Care Provider Un available Eliane Lora Primary Care Provider Wiley Winters MD Unavailable Elizabeth Gu DO Primary Care Provider [phone] Encounter Details Date Type Department Care Team (Late st Contact Info) Description 04/05/2022 Abstract [facility] MEDICAL [address] [place] [address] Anjelica Harris FNP Social History Tobacco Use [...] Description 12/23/2024 10:30 AM EDT Office Visit [facility] OPTOMETRY [address] [place] [address] Nohemy Downey OD [address] [place] [address] documented as of this encounter Visit Diagnoses Not on filedocumented in this encounter Care Teams Radio Interference Investigator Relationship Specialty Start Date End Date Anjelica Harris FNP PCP - General Family Medicine 02/23/22 12/30/22 Eliane Lora PA PCP - General Family Medicine 12/31/22 12/05/23 Elizabeth Estrada DO [address] [place] [address] PCP - General Family Medicine 12/06/23 Wiley Damon MD [address] [place] [address] Rheumatology 10/23/23 documented as of this encounter
--- OUTSIDE RECORDS SUMMARY | 2024-12-04 12:47 | XMS_ITS | Encounter Summary ---
Author Organization [employer] Address [address] [facility] [address] [facility] [address] [address] 7t [place] [address] Care Team Providers Care Bookmobile Clerk Name Role Phone Wiley Damon MD Unavailable Unavaila ble Elizabeth Estrada DO Primary Care Provider [phone] Encounter Details Date Type Department Care Team (Late st Contact Info) Description 07/16/2024 Orders Only [facility] [address] [place] [address] Elizabeth Estrada DO [address] [place] [address] Social History Tobacco Use Types Packs/Day Years [...] Start Date Job End Date Stay at [facility] Mom Not on file Not on file Not on file documented as of this encounter Plan of Treatment Upcoming Encounters Date Type Department Care Team (Late st Contact Info) Description 12/23/2024 10:30 AM EDT Office Visit [place] OPTOMETRY [address] [place] [address] Nohemy Downey OD [address] [place] [address] documented as of this encounter Procedures Procedure [...] documented as of this encounter Care Teams Bookmobile Clerk Relationship Specialty Start Date End Date Elizabeth Estrada DO [address] [place] [address] PCP - General Family Medicine 12/06/23 Wiley Damon MD [address] [place] [phone] Rheumatology 10/23/23 documented as of this encounter
--- OUTSIDE RECORDS SUMMARY | 2024-12-04 12:47 | XMS_ITS | Clinical Summary ---
Author Organization [facility] Address [address] [facility] [address] [place] [address] Phone Care Team Providers Care Barrel Rib Matting Machine Operator Name Role Phone Anjelica Harris NP Primary Care Provide r Allergies No known active allergies Medications celecoxib (CELEBREX) 200 MG capsule Take 200 mg by mouth daily as needed for pain (specific location in comments). Active multivitamin-mi nerals-lutein (CENTRUM SILVER) Tab Take 1 tablet by mouth daily. Active predniSONE (DELTASONE) 10 MG tablet Take 10 mg by mouth as needed. Active hydrOXYchloroQU INE (PLAQUENIL) 200 mg tablet Take 350 mg by mouth daily. Active biotin 1 mg tablet Take 1,000 mcg by mouth daily. Active atorvastatin (LIPITOR) 10 MG tablet Take 10 mg by mouth daily. Active omeprazole (PRILOSEC) 10 MG capsule Take 10 mg by mouth daily. Active gabapentin (NEURONTIN) 100 MG capsule Take 1 capsule (100 mg total) by mouth nightly at bedtime. 90 capsule 02/28/2021 Active Active Problems Problem Noted Date Diagnosed Date Chronic bilateral low back pain without sciatica 08/28/2022 Social History Tobacco Use Types Packs/Day Years Used Date Smoking Tobacco: Every Day Cigarettes 0.3 40 Smokeless Tobacco: Never Tobacco Cessation:Ready to Q uit: Not Asked; Counseling Given: Not Answered Alcohol Use Standard Drinks/Week Comments Not Currently [...] on file Sexual Orientation Not on file Last Filed Vital Signs Vital Sign Reading Time Taken Comments Blood Pressure 123/75 08/28/2022 8:34 AM EDT aut o cuff Pulse 63 08/28/2022 8:34 AM EDT Temperature 36.9 C (98.5 F) 02/09/2021 10:55 AM EDT Respiratory Rate 16 08/28/2022 8:34 AM EDT Oxygen Saturation 96% 02/09/2021 10:55 AM EDT Inhaled Oxygen Concentration - - Weight 72.6 kg (160 lb) 08/28/2022 8:34 AM EDT Height 160 cm (5' 3 ) 08/28/2022 8:34 AM EDT Body Mass Index 28.34 08/28/2022 8:34 AM EDT Plan of Treatment Scheduled Procedures Name Priority Associated Diagnoses Date/Ti me COLONOSCOPY Adenomatous polyp of colon, unspecified part of colon Health Maintenance Due Date Last Done Comments LIPID PANEL 1966 DEPRESSION SCREENING 1978 SMOKING Hx and SMOKELESS TOBACCO SCREENING 1979 HEPATITIS C SCREENING 1984 HIV ONE-TIME SCREENING (18-65 YEARS) 1984 PNEUMOCOCCAL VACCINES (50+ years) (1 of 2 - PCV) 1985 PAP SMEAR 1987 COLOGUARD 2011 FIT TEST 2011 FOBT 2011 SIGMOIDOSCOPY 2011 VIRTUAL COLONOSCOPY 2011 ZOSTER VACCINES (2 of 2) 08/18/2021 06/23/2021 SCREENING FOR DIABETES 10/27/2022 10/28/2019 MAMMOGRAM 09/13/2023 09/12/2021, 01/20/2021 COVID-19 VACCINE (2 - season) 2023 08/11/2020 COLONOSCOPY 11/02/2029 11/03/2019 COLORECTAL CANCER SCREENING 11/02/2029 Adult Td,Tdap Booster 12/16/2030 12/16/2020 , 04/27/2013, 11/23/2010, Additional history exists HEPATITIS A VACCINES Aged Out No long er eligible based on patient's age to complete this topic HIB VACCINES Aged Out No longer eligi ble based on patient's age to complete this topic MENINGOCOCCAL VACCINES (ACWY) Aged Out No longer eligible based on patient's age to complete this topic MENINGOCOCCAL VACCINES (B) Aged Out N o longer eligible based on patient's age to complete this topic Medical Devices Not on file Procedures Procedure Name Priority Date/Time Associated Diagnosis Comments ENDOSCOPY, COLON 11/03/2019 12:5 9 PM EDT from Last 3 Months or Most Recently Relevant to Health Maintenance Results * ENDOSCOPY, COLON (11/03/2019 12:59 PM EDT) Narrative Transcriptions Abundio Castellano MD - 11/03/2019 12:59 PM EDT Patient Name: Akilah Chavis Attending MD:: ABUNDIO CASTELLANO MD, Procedure Date: 11/03/2019 12:59 PM Date of : 1965 Age: 54 Admit Type: Outpatient Gender: Female Room: [place] [address] Referring MD: Bhupinder Malik MD Exam Type: Colonoscopy Indications: Abdominal pain in the right lower quadrant, Changein bowel habits Medications: Monitored Anesthesia Care Procedure: Informed consent was obtained from the patient after discussion of the indications, limitations, alternatives, benefits, and risks of the procedure. Risks specifically discussed include but are not limited to medication reactions, missed lesions, bleeding, perforation, or the need for emergentsurgery. Throughout the procedure, the patient's bloodpressure, pulse, end-tidal CO2, and oxygen saturations were monitored continuously. The Olympus pediatric variable colonoscopePCF-[id number] #4 was introduced through the anus and advanced tothe terminal ileum. The colonoscopy was performedwithout difficulty. The patient tolerated the procedurewell. The quality of the bowel preparation was excellent.The quality of the bowel preparation was evaluated using the BBPS ([place] Bowel Preparation Scale) withscores of: Right Colon = 3, Transverse Colon = 3 and Left Colon = 3 (entire mucosa seen well with no residual staining, small fragments of stool or opaqueliquid). The total BBPS score equals 9. Complications: No immediate complications. Estimated blood loss: Minimal. Findings: The perianal and digital rectal examinations were normal. The terminal ileum appeared normal. A 3 mm polyp was found in the ascending colon. The polyp was sessile. The polyp was removed with a cold snare. Resection and retrieval were complete. Internal hemorrhoids were found during retroflexion. The hemorrhoids were mild. The exam was otherwise normal throughout theexamined colon. Impression: - The examined portion of the ileum was normal. - One 3 mm polyp in the ascending colon, removedwith a cold snare. Resected and retrieved. - Internal hemorrhoids. Recommendation: - Discharge patient to home. - Await pathology results. - Return to GI office as previously scheduled. - Start Lactulose BID to help with constipation. ABUNDIO CASTELLANO MD, 11/03/2019 3:13:09 PM This report has been signed electronically. Number of Addenda: 0 Note Initiated On: 11/03/2019 12:59 PM Procedure Code(s): --- Professional --- 67973, Colonoscopy, flexible; with removal of tumor(s), polyp(s), or other lesion(s) by snare technique --- Technical --- 22809, Colonoscopy, flexible; with removal of tumor(s), polyp(s), or other lesion(s) by snare technique Diagnosis Code(s): --- Professional --- K64.8, Other hemorrhoids D12.2, Benign neoplasm of ascending colon R10.31, Right lower quadrant pain R19.4, Change in bowel habit --- Technical --- K64.8, Other hemorrhoids D12.2, Benign neoplasm of ascending colon R10.31, Right lower quadrant pain R19.4, Change in bowel habit CPT copyright 2018 [employer]. All rights reserved. The codes documented in this report are preliminary and upon supervisor residential reviewmay be revised to meet current compliance requirements. Procedure Date: 11/03/2019 12:59:09 PM [address] [place] [address] Elier Malik NP GI PROCEDURE ORDERABL ES Final Result from Last 3 Months or Most Recently Relevant to Health Maintenance Insurance [employer] MEDICARE PART A & B [place] [facility] [place] PART A & B [place] [place] & [place] B [facility] MEDICARE PART A & B Care Teams Barrel Rib Matting Machine Operator Relationship Specialty Start Date End Date Anjelica Harris NP [address] [place] [address] PCP - General Nurse Practitioner 08/28/22 Additional Source Comments The information contained in this document represents components of the legal health record. It is not the complete legal health record.[facility]
--- OUTSIDE RECORDS SUMMARY | 2024-12-04 12:47 | XMS_ITS | Encounter Summary ---
Author Organization [employer] Address [address] [facility] [address] 7t [place] [address] Care Team Providers Care Glass Tinter Name Role Phone Sharonshayne Anjelica FNP Primary Care Provider Un available Eliane Lora Primary Care Provider Wiley Winters MD Unavailable Elizabeth Gu DO Primary Care Provider [phone] Encounter Details Date Type Department Care Team (Late st Contact Info) Description 07/31/2022 Abstract [place] [facility] MEDICAL [address] [place] [address] Hyun Mace, CASE SUPERVISOR [address] [place] [address] Social History Tobacco Use Types Packs/Day Years [...] Date Job End Date Stay at [facility] Mom Not on file Not [...] 12/23/2024 10:30 AM EDT Office Visit [place] [facility] OPTOMETRY [address] [place] [address] Nohemy Downey OD [address] [place] [address] documented as of this encounter Visit Diagnoses Not on filedocumented in this encounter Additional Health Concerns Assessment Noted Time PHQ-9 Depression Total Score: 21 023 11:43 AM EDT documented as of this encounter Care Teams Glass Tinter Relationship Specialty Start Date End Date Anjelica Harris FNP PCP - General Family Medicine 02/23/22 12/30/22 Eliane Lora PA PCP - General Family Medicine 12/31/22 12/05/23 Elizabeth Estrada DO [address] [place] [address] PCP - General Family Medicine 12/06/23 [place] [address] [place] [phone] Rheumatology 10/23/23 documented as of this encounter
--- OUTSIDE RECORDS SUMMARY | 2024-12-04 12:47 | XMS_ITS | Encounter Summary ---
Author Organization [facility] Address [address] [facility] 7t [place] [address] Care Team Providers Care Psychiatric Aides Teacher Name Role Phone Anjelica Harris Primary Care Provider Un available Eliane Lora Primary Care Provider Wiley Winters MD Unavailable Elizabeth Gu DO Primary Care Provider [phone] Encounter Details Date Type Department Care Team [...] Description 12/23/2024 10:30 AM EDT Office Visit [place] [facility] OPTOMETRY [address] [place] [address] Nohemy Downey OD [address] [place] [address] documented as of this encounter Visit Diagnoses Not on filedocumented in this encounter Care Teams Psychiatric Aides Teacher Relationship Specialty Start Date End Date Anjelica Harris FNP PCP - General Family Medicine 02/23/22 12/30/22 Eliane Lora PA PCP - General Family Medicine 12/31/22 12/05/23 Elizabeth Estrada DO [address] [place] [address] PCP - General Family Medicine 12/06/23 [place] [address] [place] [phone] Rheumatology 10/23/23 documented as of this encounter
--- OUTSIDE RECORDS SUMMARY | 2024-12-04 12:47 | XMS_ITS | Encounter Summary ---
Author Organization [employer] Address [address] [facility] [address] 7t [place] [address] Care Team Providers Care Single Pointed Operator Name Role Phone Wiley Damon MD Unavailable Unavaila Elizabeth Figueroa DO Primary Care Provider [phone] Encounter Details Date Type Department Care Team (Late st Contact Info) Description 04/28/2024 Orders Only [facility] MED[facility] [address] [place] [address] Provider, MD Dayanara Social History Tobacco Use Types Packs/Day Years [...] Start Date Job End Date Stay at [facility] Not on file Not on file Not on file documented as of this encounter Plan of Treatment Upcoming Encounters Date Type Department Care Team (Late st Contact Info) Description 12/23/2024 10:30 AM EDT Office Visit [place] [facility] OPTOMETRY [address] [place], [place] [phone] Nohemy Downey OD [address] [place] [address] documented as of this encounter Procedures Procedure [...] documented as of this encounter Care Teams Single Pointed Operator Relationship Specialty Start Date End Date Elizabeth Estrada DO [address] [place] [address] PCP - General Family Medicine 12/06/23 Wiley Damon MD [address] [place] [address] Rheumatology 10/23/23 documented as of this encounter
--- OUTSIDE RECORDS SUMMARY | 2024-12-04 12:47 | XMS_ITS | Encounter Summary ---
Author Organization [facility] Address [address] [facility] [address] [place] [address] Phone Care Team Providers Care Neurological Surgery Teacher Name Role Phone Anjelica Harris MAINTENANCE DISPATCHER Primary Care Provide r Encounter Details Date Type Department Care Team (Late st Contact Info) Description 10/19/2022 Transcribe Orders [facility] [address] [place] [address] Anjelica Harris, LAURIE [address] [place] [address] Social History Tobacco Use Types Packs/Day Years [...] on filedocumented in this encounter Care Teams Neurological Surgery Teacher Relationship Specialty Start Date End Date Anjelica Harris NP [address] [place] [address] PCP - General Nurse Practitioner 08/28/22 documented as of this encounter Additional Source Comments The information contained in this document represents components of the legal health record. It is not the complete legal health record.[facility]
--- OUTSIDE RECORDS SUMMARY | 2024-12-04 12:47 | XMS_ITS | Encounter Summary ---
Author Organization [employer] Address [address] [facility] [address] 7t [place] [address] Care Team Providers Care Drawing Supervisor Name Role Phone Wiley Damon MD Unavailable Unavaila Elizabeth Figueroa DO Primary Care Provider [phone] Encounter Details Date Type Department Care Team (Late st Contact Info) Description 04/26/2024 Orders Only [place] [facility] MEDICAL [address] [place] [address] Provider, MD Dayanara Social History Tobacco Use [...] Start Date Job End Date Stay at [employer] Not on file Not on file Not on file documented as of this encounter Plan of Treatment Upcoming Encounters Date Type Department Care Team (Late st Contact Info) Description 12/23/2024 10:30 AM EDT Office Visit [place] [facility] OPTOMETRY [address] [place], [place] [phone] Nohemy Downey OD [address] [place] [address] documented as of this encounter Procedures Procedure [...] Serum (04/22/2024 8:46 AM EST) Blood Result [facility] Provider MD LAB BLOOD ORDERABLES Liza l Result * AST (04/22/2024 8:46 AM EST) Blood Venous blood specimen / Unknown Result [facility] Provider LAB BLOOD ORDERABLES Liza l Result * ALT (04/22/2024 8:46 AM EST) Blood Venous blood specimen / Unknown Result [facility] Provider LAB BLOOD ORDERABLES Liza l Result * C-reactive Protein (04/22/2024 8:46 AM EST) Blood Venous blood specimen / Unknown Result [facility] Provider LAB BLOOD ORDERABLES Liza l Result * CBC auto differential (04/22/2024 8:46 AM EST) Blood Venous blood specimen / Unknown Result [facility] Provider LAB BLOOD ORDERABLES Liza l Result * Sed Rate by Modified [place] (04/22/2024 8:46 AM EST) Blood Venous blood specimen / Unknown Result [facility] Provider LAB BLOOD ORDERABLES Liza l Result documented in this encounter Visit Diagnoses Not on filedocumented in this encounter Additional Health Concerns Assessment Noted Time PHQ-9 Depression Total Score: 21 023 11:43 AM EDT documented as of this encounter Care Teams Drawing Supervisor Relationship Specialty Start Date End Date Elizabeth Estrada DO [address] [place] [address] PCP - General Family Medicine 12/06/23 Wiley Dmaon MD [address] [place] [address] Rheumatology 10/23/23 documented as of this encounter
--- OUTSIDE RECORDS SUMMARY | 2024-12-04 12:47 | XMS_ITS | Encounter Summary ---
Author Organization [facility] Address [address] [place] [address] [place] [address] Phone Care Team Providers Care Radiological Technologist Name Role Phone Elier Malik SUPERVISOR BELT AND LINK ASSEMBLY Primary Care Provide r Anjelica Harris SUPERVISOR BELT AND LINK ASSEMBLY Primary Care Provide r Encounter Details Date Type Department Care Team (Late st Contact Info) Description 03/13/2022 Prep for Surgery [facility] Orth[facility]ics & Sports Medicine [address] [place] [address] Eri Méndez MD [address] [place] [address] Orthopedics & Sports Medicine, [facility] [place] [address] [email or web address] Social History Tobacco Use Types Packs/Day Years [...] on filedocumented in this encounter Care Teams Radiological Technologist Relationship Specialty Start Date End Date Elier Malik NP PCP - General 03/19/19 08/27/22 Anjelica Harris NP [address] [place] [address] PCP - General Nurse Practitioner 08/28/22 documented as of this encounter Additional Source Comments The information contained in this document represents components of the legal health record. It is not the complete legal health record.[facility]
[2024-12-04 13:22] LABS: Alanine Aminotransferase 36 U/L (0-31); Aspartate Amino Transferase 35 U/L (5-31); Estimated Glomerular Filt Rate > 60
[2024-12-11 09:43] LABS: HLA B27 Negative (Negative)
[2024-12-13 23:03] LABS: Anti Nuclear Antibody Pattern Nuclear, Nucleolar; Anti Nuclear Antibody Screen POSITIVE (NEGATIVE); Anti Nuclear Antibody Titer 1:80 titer
== END 2024-12-04 11:50 | disposition home or self-care (01) ==
LOC: HO.XRAY 11:49
PROVIDERS: PCP Family Medicine; Visit Provider Internal Medicine Rheumatology
DX: M15.4 Erosive (osteo)arthritis (principal); Z79.899 Other long term (current) drug therapy; Z79.60 Long term (current) use of unspecified immunomodulators and immunosuppressants
CPT/HCPCS: 36415; 73130; 82565; 84450; 84460; 85025; 85652; 86038; 86039; 86140; 86200; 86431; 86812

== ENCOUNTER → 2024-12-04 12:02 | Outpatient (BNV) | payer OTHER, SELFPAY | PROVIDERS: PCP Family Medicine; Visit Provider Radiology Diagnostic Radiology | DX: M15.4 Erosive (osteo)arthritis (principal) | CPT/HCPCS: 73130 ==

== ENCOUNTER 2024-12-24 10:38 | Outpatient (REF) | payer OTHER, SELFPAY ==
--- OUTSIDE RECORDS SUMMARY | 2024-12-23 10:30 | XMS_ITS | Encounter Summary ---
Author Organization [employer] Address [address] [place] [address] Care Team Providers Care Workplace Relations Adviser Name Role Phone Wiley Damon MD Unavailable Jaxsona Elizabeth Figueroa DO Primary Care Provider [phone] Reason for Visit * Reason Comments Eye Exam Encounter Details Date Type Department Care Team (Late st Contact Info) Description 12/23/2024 10:30 AM EDT Office Visit [place] [facility] OPTOMETRY [address] [place] [address] Nohemy Downey, OD [address] [place] [address] Retinal cyst of right eye (Primary Dx); Encounter for long-term (current) use of medications; Myopia of both eyes Social History Tobacco Use Types Packs/Day Years [...] Start Date Job End Date Stay at [facility] Mom Not on file Not on file Not on file documented as of this encounter Progress Notes * Nohemy Downey, OD - 12/23/2024 10:30 AM EDT Assessment/Plan Diagnoses and all orders for this visit: Retinal cyst of right eye From previous posterior vitreous detachment; vitreomacular traction is resolved. +symptomatic for spot in vision; stable. OCT macula is stable. Pt ed condition; monitor 1 year or sooner if any changes in vision Encounter for long-term (current) use of medications No medication toxicity on OCT today. Monitor with next avail visual field (VF) 10-2 Myopia of both eyes Spec Rx updated PAL documented in this encounter Plan of Treatment Upcoming Encounters Date Type Department Care Team (Late st Contact Info) Description 03/08/2025 9:00 AM EST Office Visit [place] [facility] OPTOMETRY [address] [place] [address] Nohemy Downey, OD [address] [place] [address] documented as of this encounter Visit Diagnoses Diagnosis Retinal cyst of right eye- Primary Other retinoschisis and retinal cysts Encounter for long-term (current) use of medications Encounter for long-term (current) use of other medications Myopia of both eyes documented in this encounter Additional Health Concerns Assessment Noted Time PHQ-9 Depression Total Score: 10 11/27/ 025 10:35 AM EDT documented as of this encounter Care Teams Workplace Relations Adviser Relationship Specialty Start Date End Date Elizabeth Estrada DO [address] [place] [address] PCP - General Family Medicine 12/06/23 Wiley Damon MD [address] [place] [address] Rheumatology 10/23/23 documented as of this encounter
--- OUTSIDE RECORDS SUMMARY | 2024-12-24 12:50 | XMS_ITS | Encounter Summary ---
Author Organization [employer] Address [address] [place] [address] Care Team Providers Care Lime Kiln Tender Name Role Phone Wiley Damon MD Unavailable Unavaila ble Elizabeth Estrada DO Primary Care Provider [phone] Encounter Details Date Type Department Care Team (Late st Contact Info) Description 12/08/2024 Orders Only [facility] [address] [place] [address] Elizabeth Estrada DO [address] [place] [address] Social History Tobacco Use Types Packs/Day Years [...] Description 03/08/2025 9:00 AM EST Office Visit [place] [facility] OPTOMETRY [address] [place] [phone] Nohemy Downey OD [address] [place] [address] documented as of this encounter Procedures Procedure Name Priority Date/Time Associated Diagnosis Comments XR HAND 3+ VIEWS BILATERAL Routine 12/04/2024 10:01 AM EDT documented in this encounter Results * XR Hand 3+Views Bilateral (12/04/2024 10:01 AM EDT) Anatomical Region Laterality Modality Upper Extremities, Hand Bilateral Radiogra phic Imaging Elizabeth Estrada DO IMG XR PROCEDURES Final Result documented in this encounter Visit Diagnoses Not on filedocumented in this encounter Additional Health Concerns Assessment Noted Time PHQ-9 Depression Total Score: 10 025 10:35 AM EDT documented as of this encounter Care Teams Lime Kiln Tender Relationship Specialty Start Date End Date Elizabeth Estrada DO [address] [place] [address] PCP - General Family Medicine 12/06/23 Wiley Damon MD [address] [place] [address] Rheumatology 10/23/23 documented as of this encounter
--- OUTSIDE RECORDS SUMMARY | 2024-12-24 12:50 | XMS_ITS | Encounter Summary ---
Author Organization [employer] Address [address] [place] [address] Care Team Providers Care As400 Analyst Name Role Phone Wiley Damon MD Unavailable Unavaila ble Elizabeth Estrada DO Primary Care Provider Encounter Details Date Type Department Care Team (Late st Contact Info) Description 01/25/2024 Orders Only [place] [address] [place] [address] Elizabeth Estrada DO [address] [place] [address] Social History Tobacco Use Types Packs/Day Years [...] Description 03/08/2025 9:00 AM EST Office Visit [place] [facility] OPTOMETRY [address] [place] [address] Nohemy Downey OD [address] [place] [address] documented as of this encounter Procedures Procedure [...] (Negative) Lay letter mailed to patient WSN: [id number] Ordering Physician: Alejandra Steen Dictated By: Julia Calero MD Dictated Date/Time: 02/18/24 5:04 pm Reviewed By: Julia Calero MD Signed By: Julia Calero MD Signed Date/Time: 02/18/24 5:04 pm Transcribed By: GABRIEL Body Art Technician Date/Time: 02/18/24 5:01 pm Birads: Procedure Note [...] (Negative) Lay letter mailed to patient WSN: [id number] Ordering Physician: Alejandra Steen Dictated By: Julia Calero MD Dictated Date/Time: 02/18/24 5:04 pm Reviewed By: Julia Calero MD Signed By: Julia Calero MD Signed Date/Time: 02/18/24 5:04 pm Transcribed By: GABRIEL Body Art Technician Date/Time: 02/18/24 5:01 pm Birads: Alejandra Steen DISTRICT ASSOCIATE JUDGE IMG BI PROCEDURES Liza l Result * CBC auto differential (10/17/2023 8:59 AM EDT) Blood Venous blood specimen / Unknown Elizabeth Estrada DO LAB BLOOD ORDERABLES Final Res ult documented in this encounter Visit Diagnoses Not on filedocumented in this encounter Additional Health Concerns Assessment Noted Time PHQ-9 Depression Total Score: 21 023 11:43 AM EDT documented as of this encounter Care Teams As400 Analyst Relationship Specialty Start Date End Date Elizabeth Estrada DO [address] [place] [address] PCP - General Family Medicine 12/06/23 Wiley Damon MD [address] [place] [phone] Rheumatology 10/23/23 documented as of this encounter
--- OUTSIDE RECORDS SUMMARY | 2024-12-24 12:50 | XMS_ITS | Encounter Summary ---
Author Organization [employer] Address [address] [place] [address] Care Team Providers Care Pumping Station Supervisor Name Role Phone Wiley Damon MD Unavailable Unavaila Elizabeth Figueroa DO Primary Care Provider [phone] Encounter Details Date Type Department Care Team (Late st Contact Info) Description 04/28/2024 Orders Only [place] [facility] [address] [place] [address] Provider, MD Dayanara Social History Tobacco Use [...] Start Date Job End Date Stay at [facility] Not on file Not on file Not on file documented as of this encounter Plan of Treatment Upcoming Encounters Date Type Department Care Team (Late st Contact Info) Description 03/08/2025 9:00 AM EST Office Visit [place] [facility] OPTOMETRY [address] [place], [place] [phone] Nohemy Downey OD [address] [place], [place] [phone] documented as of this encounter Procedures Procedure [...] documented as of this encounter Care Teams Pumping Station Supervisor Relationship Specialty Start Date End Date Elizabeth Estrada DO [address] [place] [address] PCP - General Family Medicine 12/06/23 Wiley Damon MD [address] [place] [address] Rheumatology 10/23/23 documented as of this encounter
--- OUTSIDE RECORDS SUMMARY | 2024-12-24 12:50 | XMS_ITS | Encounter Summary ---
Author Organization [facility] Address [address] [facility] [address] [place] [address] Phone Care Team Providers Care Sales Department Clerk Name Role Phone Elier Malik AUTOMOTIVE SALES MANAGER Primary Care Provide r Anjelica Harris AUTOMOTIVE SALES MANAGER Primary Care Provide r Encounter Details Date Type Department Care Team (Late st Contact Info) Description 02/09/2021 Procedure Pass [address] [place] [address] Social History Tobacco Use Types Packs/Day Years [...] filedocumented in this encounter Care Teams Sales Department Clerk Relationship Specialty Start Date End Date Elier Malik NP PCP - General 03/19/19 08/27/22 Anjelica Harris NP [address] [place] [address] PCP - General Nurse Practitioner 08/28/22 documented as of this encounter Additional Source Comments The information contained in this document represents components of the legal health record. It is not the complete legal health record.[facility]
--- OUTSIDE RECORDS SUMMARY | 2024-12-24 12:50 | XMS_ITS | Encounter Summary ---
Author Organization [facility] Address [address] [facility] [address] [place] [address] Phone Care Team Providers Care Loan Processing Supervisor Name Role Phone Elier Malik FURNACE OPERATOR OIL OR GAS Primary Care Provide r Anjelica Harris FURNACE OPERATOR OIL OR GAS Primary Care Provide r Encounter Details Date Type Department Care Team (Late st Contact Info) Description 02/21/2021 Ancillary Orders [facility],Outside Imaging [address] [place] [address] System, Provider Not In, [facility] [address] [address] Social History Tobacco Use Types Packs/Day Years [...] on filedocumented in this encounter Care Teams Loan Processing Supervisor Relationship Specialty Start Date End Date Elier Malik NP PCP - General 03/19/19 08/27/22 Anjelica Harris NP [address] [place] [address] PCP - General Nurse Practitioner 08/28/22 documented as of this encounter Additional Source Comments The information contained in this document represents components of the legal health record. It is not the complete legal health record.[facility]
--- OUTSIDE RECORDS SUMMARY | 2024-12-24 12:50 | XMS_ITS | Clinical Summary ---
Author Organization [employer] Address [address] [place] [address] Care Team Providers Care Hopper Attendant Name Role Phone Wiley Damon MD Unavailable Jaxsona Elizabeth Figueroa DO Primary Care Provider [phone] Allergies No known active allergies Medications Tylenol [...] to 14 days. 42 tablet 025 Active Zepbound 2.5 MG/0.5ML solution auto-injectorIndi cations:Obstructi ve sleep apnea,Class 1 obesity without serious comorbidity with body mass index (BMI) of 31.0 to 31.9 in adult, unspecified obesity type Inject 0.5 mL (2.5 mg) under the skin 1 (one) time per week. 2 mL 025 Active albuterol 108 (90 Base) MCG/ACT inhalerIndication s:Bronchitis INHALE 2 PUFFS BY MOUTH EVERY 6 HOURS NEEDED FOR WHEEZING 8.5 g 2 Active tiZANidine (Zanaflex) 2 MG tablet Take 2 mg by mouth if needed in the morning and at bedtime. 024 2024 Discontinued albuterol 108 (90 Base) MCG/ACT inhalerIndication s:Bronchitis Inhale 2 puffs every 6 (six) hours if needed for wheezing. 8.5 g 2 025 2024 Discontinued Tirzepatide (Mounjaro) 2.5 MG/0.5ML solution auto-injectorIndi cations:Obstructi ve sleep apnea,Class 1 obesity without serious comorbidity with body mass index (BMI) of 31.0 to 31.9 in adult, unspecified obesity type Inject 0.25 mg under the skin 1 (one) time per week. 2 mL 025 2024 Discontinued(F ormulary change) Active Problems Problem Noted Date Diagnosed Date COVID-19 03/17/2024 Assessment & Plan (03/17/2024 6:24 PM EST): COVID home test positive this a.m. after attending concert in [place] on Saturday (3 days ago), feverish feeling/chills/fatigue but no n/v/d and wants Paxlovid - states worked well for her last time had Covid. No contraindications. No current COPD exacerbation. E rx sent and states her son will picking machine operator helper for her this evening. Akilah agrees to [...] specified site Overview (10/24/2023): 10/18/23 [facility] [place]: Erosive OA hands, R IP joint recurrent [...] Encounters Date Type Department Care Team Description 12/23/2024 10:30 AM EDT Office Visit [facility] OPTOMETRY [address] [place] [address] Nohemy Downey, OD Retinal cyst of right eye (Primary Dx); Encounter for long-term (current) use of medications; Myopia of both eyes 12/22/2024 Telephone [facility] MEDICAL [address] [place] [address] Elizabeth Estrada DO sleep machine 12/17/2024 Orders Only [facility] [address] [place] [address] Elizabeth Estrada DO 12/16/2024 Telephone [facility] MED[facility] [address] [place] [address] Elizabeth Estrada DO Prior Authorization (Zepbound) 12/15/2024 Refill [facility] MED[facility] [address] [place] [address] Elizabeth Estrada DO Bronchitis (Primary Dx) 12/08/2024 Orders Only [facility] [address] [place] [address] Elizabeth Estrada DO 11/27/2024 10:15 AM EDT Office Visit [facility] [address] [place] [address] Elizabeth Estrada DO Obstructive sleep apnea (Primary Dx); Class 1 obesity without serious comorbidity with body mass index (BMI) of 31.0 to 31.9 in adult, unspecified obesity type; Generalized pruritus 11/27/[address] [address] Wanda Cheney Prior Authorization (KHUSHBU Baldwin) 11/27/2024 Travel 11/18/[address] [address] Elizabeth Estrada DO 11/17/2024 Results Follow-Up [address] [address] Elizabeth Etsrada DO Polysomnography 10/06/2024 Refill [facility] [address] [place] [address] Elizabeth Estrada DO Bronchitis from Last 3 [...] is your housing situation today? I have olegmar smith 01/20/[address] you [...] Start Date Job End Date Stay at [facility] [employer] Not on file Not on file [...] 03/08/2025 9:00 AM EST Office Visit [place] [facility] OPTOMETRY [address] [place] [address] Nohemy Downey, TYRONE [address] [place] [address] Health Maintenance Due Date Last Done Comments [...] 10/26/19 23, 10/20/2021, 06/03/2019, Additional history exists Cervical Cancer Screening 08/22/2024 Pap Smear 08/22/2024 08/22/2021 COVID-19 Vaccine ( season) 2024 03/06/2023, 02/23/2022, 06/23/2021, Additional history exists Influenza Vaccine (#1) 2024 , 12/05/2022, 02/23/2022, Additional history exists Alcohol/Substance Use Screening 01/19/2025 01/20/2024 Diabetes: Hemoglobin A1C 01/19/2025 024, 02/23/2022, 08/07/2021, Additional history exists SDOH Screening 01/19/2025 01/20/2024 Depression Monitoring 05/30/2025 11/27/2024, 025 Disability Screening 08/29/2025 08/29/2024 Tobacco Screening 12/23/2025 12/23/2024 Mammogram 02/17/2026 02/18/2024, 0610/2021, 09/12/2021, Additional history exists Lipid Panel 02/23/2027 [...] Procedure Name Priority Date/Time Associated Diagnosis Comments DESTINEY SCREEN, IFA, W/REFL TITER AND PATTERN Routine 12/04/2024 12:47 PM EDT XR HAND 3+ VIEWS BILATERAL Routine 12/04/2024 10:01 AM EDT POLYSOMNOGRAM Routine 11/12/2024 Loud snoring Chronic fatigue [...] Recently Relevant to Health Maintenance Results * DESTINEY Screen,IFA, with Reflex to Titer and Pattern (12/04/2024 12:47 PM EDT) Blood Venous blood specimen / Unknown [facility] LAB BLOOD ORDERABLES Final Res ult * XR Hand 3+Views Bilateral (12/04/2024 10:01 AM EDT) Anatomical Region Laterality Modality Upper Extremities, Hand Bilateral Radiogra phic Imaging [facility] IMG XR PROCEDURES Final Result * Polysomnography (11/12/2024) [facility] SLEEP CENTER ORDERABLES Final Result * BI Mammogram Screening [...] (Negative) Lay letter mailed to patient WSN: [id number] Ordering Physician: Alejandra Steen Dictated By: Julia Calero MD Dictated Date/Time: 02/18/24 5:04 pm Reviewed By: Julia Calero MD Signed By: Julia Calero MD Signed Date/Time: 02/18/24 5:04 pm Transcribed By: GABRIEL Diesel Mechanic Date/Time: 02/18/24 5:01 pm Birads: Procedure Note [...] (Negative) Lay letter mailed to patient WSN: [id number] Ordering Physician: Alejandra Steen Dictated By: Julia Calero MD Dictated Date/Time: 02/18/24 5:04 pm Reviewed By: Julia Calero MD Signed By: Julia Calero MD Signed Date/Time: 02/18/24 5:04 pm Transcribed By: CSAliyah Diesel Mechanic Date/Time: 02/18/24 5:01 pm Birads: Alejandra Steen SET BUILDER IMG BI PROCEDURES Liza l Result * [...] 02/23/2022 10:0 6 AM EST Anjelica Harris SET BUILDER LAB BLOOD ORDERABLES Liza l Result CONVERTED LEGACY LABS * Pap Smear (08/22/2021) Pathologist [facility] Pap smear Pap negative, HPV negative Historical Provider HEALTH MAINTENANCE Final Result * (ABNORMAL) Colonoscopy (11/03/2019) Pathologist [facility] Colonoscopy Abnormal(A ) Normal Historical Provider HEALTH MAINTENANCE Final Result * Hepatitis C Antibody (10/15/2016 1:46 PM EDT) Pathologist [facility] Hepatitis C Antibody Nonreactive Blood 10/15/2016 1:46 PM EDT Historical Provider POINT OF CARE TEST ENTER/ EDIT ORDERABLES Final Result from Last 3 Months or Most Recently Relevant to Health Maintenance Insurance [facility] ONE CARE < 65 [employer] ONE CARE < 65 VSP Care Teams Hopper Attendant Relationship Specialty Start Date End Date Elizabeth Estrada DO [address] [place] [address] PCP - General Family Medicine 12/06/23 Wiley Damon MD [address] [place] [phone] Rheumatology 10/23/23
--- OUTSIDE RECORDS SUMMARY | 2024-12-24 12:50 | XMS_ITS | Encounter Summary ---
Author Organization [employer] Address [address] [facility] [address] [place] [address] Care Team Providers Care Recreation Attendant Name Role Phone Wiley Damon MD Unavailable Unavaila ble Elizabeth Estrada DO Primary Care Provider [phone] Encounter Details Date Type Department Care Team (Late st Contact Info) Description 11/17/2024 Results Follow-Up [facility] MEDICAL [address] [place] [address] Elizabeth Estrada DO [address] [place] [address] Polysomnography Social History Tobacco Use Types Packs/Day [...] Start Date Job End Date Stay at [facility] Mom Not on file Not on file Not on file documented as of this encounter Plan of Treatment Upcoming Encounters Date Type Department Care Team (Late st Contact Info) Description 03/08/2025 9:00 AM EST Office Visit [place] [facility] OPTOMETRY [address] [place] [address] Nohemy Downey, TYRONE [address] [place] [address] documented as of this encounter Visit Diagnoses Not on filedocumented in this encounter Additional Health Concerns Assessment Noted Time PHQ-9 Depression Total Score: 21 07/06/ 023 11:43 AM EDT documented as of this encounter Care Teams Recreation Attendant Relationship Specialty Start Date End Date Elizabeth EstradaDO [address] [place] [address] PCP - General Family Medicine 12/06/23 Wiley Damon MD [facility] [place] [address] Rheumatology 10/23/23 documented as of this encounter
--- OUTSIDE RECORDS SUMMARY | 2024-12-24 12:50 | XMS_ITS | Encounter Summary ---
Author Organization [employer] Address [address] [place] [address] Care Team Providers Care Electric Solderer Name Role Phone Wiley Damon MD Unavailable Unavaila ble Elizabeth Estrada DO Primary Care Provider [phone] Reason for Visit * Reason Onset Date Comments sleep machine 12/22/2024 Encounter Details Date Type Department Care Team (Late st Contact Info) Description 12/22/2024 Telephone [place] [facility] [address] [place] [address] Elizabeth Estrada DO [address] [place] [address] sleep machine Social History Tobacco Use Types Packs/Day Years [...] Start Date Job End Date Stay at [facility] Mom Not on file Not on file Not on file documented as of this encounter Miscellaneous Notes * Telephone Encounter - Sanjuanita Drew - 12/22/2024 11:18 AM EDT [facility] ([facility]) called stating they received the request for the sleep machine on 12/16/24and they are requesting the patient's clinical notes prior to her sleep study done on 11/12/24 to faxnumber: [phone]. documented in this encounter Plan of Treatment Upcoming Encounters Date Type Department Care Team (Late st Contact Info) Description 03/08/2025 9:00 AM EST Office Visit [place] [facility] [address] [place] [address] Nohemy Downey, OD [address] [place], [place] [phone] documented as of this encounter Visit Diagnoses Not on filedocumented in this encounter Additional Health Concerns Assessment Noted Time PHQ-9 Depression Total Score: 10 025 10:35 AM EDT documented as of this encounter Care Teams Electric Solderer Relationship Specialty Start Date End Date Elizabeth Estrada DO [address] [place] [address] PCP - General Family Medicine 12/06/23 Wiley Damon MD [address] [place] [address] Rheumatology 10/23/23 documented as of this encounter
--- OUTSIDE RECORDS SUMMARY | 2024-12-24 12:50 | XMS_ITS | Encounter Summary ---
Author Organization [employer] Address [address] [facility] [address] [place] [address] Care Team Providers Care Grass Farmer Name Role Phone Wiley Damon MD Unavailable Unavaila ble Elizabeth Estrada DO Primary Care Provider [phone] Encounter Details Date Type Department Care Team (Late st Contact Info) Description 12/17/2024 Orders Only [place] [facility] [address] [place] [address] Elizabeth Estrada DO [address] [place] [address] Social History Tobacco Use Types Packs/Day Years [...] Start Date Job End Date Stay at [facility] Mom Not on file Not on file Not on file documented as of this encounter Plan of Treatment Upcoming Encounters Date Type Department Care Team (Late st Contact Info) Description 03/08/2025 9:00 AM EST Office Visit [place] [facility] OPTOMETRY [address] [place] [phone] Nohemy Downey OD [address] [place] [address] documented as of this encounter Procedures Procedure Name Priority Date/Time Associated Diagnosis Comments DESTINEY SCREEN, IFA, W/REFL TITER AND PATTERN Routine 12/04/2024 12:47 PM EDT documented in this encounter Results * DESTINEY Screen,IFA, with Reflex to Titer and Pattern (12/04/2024 12:47 PM EDT) Blood Venous blood specimen / Unknown Elizabeth Estrada DO LAB BLOOD ORDERABLES Final Res ult documented in this encounter Visit Diagnoses Not on filedocumented in this encounter Additional Health Concerns Assessment Noted Time PHQ-9 Depression Total Score: 10 025 10:35 AM EDT documented as of this encounter Care Teams Grass Farmer Relationship Specialty Start Date End Date Elizabeth Estrada DO [address] [place] [address] PCP - General Family Medicine 12/06/23 Wiley Damon MD [address] [place] [phone] Rheumatology 10/23/23 documented as of this encounter
--- OUTSIDE RECORDS SUMMARY | 2024-12-24 12:50 | XMS_ITS | Encounter Summary ---
Author Organization [facility] Address [address] [facility] [address] [place] [address] Phone Care Team Providers Care Level Vial Inspector Name Role Phone Elier Malik FARM CONTRACTOR BUYER Primary Care Provide r Anjelica Harris FARM CONTRACTOR BUYER Primary Care Provide r Encounter Details Date Type Department Care Team (Late st Contact Info) Description 11/03/2019 Procedure Pass [facility] Endoscopy Admitting Dept Virtual Department [address] [place] [address] Social History Tobacco Use Types Packs/Day Years [...] on filedocumented in this encounter Care Teams Level Vial Inspector Relationship Specialty Start Date End Date Elier Malik NP PCP - General 03/19/19 08/27/22 Anjelica Harris NP [address] [place] [address] PCP - General Nurse Practitioner 08/28/22 documented as of this encounter Additional Source Comments The information contained in this document represents components of the legal health record. It is not the complete legal health record.[facility]
--- OUTSIDE RECORDS SUMMARY | 2024-12-24 12:51 | XMS_ITS | Encounter Summary ---
Author Organization [employer] Address [address] [facility] [address] [place] [address] Care Team Providers Care Spray Drier Operator Helper Name Role Phone Sharonshayne Anjelica FNP Primary Care Provider Un available Eliane Lora Primary Care Provider Wiley Winters MD Unavailable Elizabeth Gu DO Primary Care Provider [phone] Encounter Details Date Type Department Care Team (Late st Contact Info) Description 07/31/2022 Abstract [place] [facility] MED[facility] [address] [place] [address] Hyun Mace, MARZIPAN MAKER [address] [place] [address] Social History Tobacco Use Types Packs/Day Years [...] Start Date Job End Date Stay at [facility] Mom Not on file Not on file [...] 03/08/2025 9:00 AM EST Office Visit [place] [facility] OPTOMETRY [address] [place] [address] Nohemy Downey OD [address] [place] [address] documented as of this encounter Visit Diagnoses Not on filedocumented in this encounter Additional Health Concerns Assessment Noted Time PHQ-9 Depression Total Score: 21 023 11:43 AM EDT documented as of this encounter Care Teams Spray Drier Operator Helper Relationship Specialty Start Date End Date Anjelica Harris FNP PCP - General Family Medicine 02/23/22 12/30/22 Eliane Lora PA PCP - General Family Medicine 12/31/22 12/05/23 Elizabeth Estrada DO [address] [place] [address] PCP - General Family Medicine 12/06/23 [place] [address] [place] [phone] Rheumatology 10/23/23 documented as of this encounter
--- OUTSIDE RECORDS SUMMARY | 2024-12-24 12:51 | XMS_ITS | Encounter Summary ---
Author Organization [facility] Address [address] [place] [address] [place] [phone] Phone Care Team Providers Care Environmental Epidemiologist Name Role Phone Elier Malik WATER TAXI CAPTAIN Primary Care Provide r Anjelica Harris WATER TAXI CAPTAIN Primary Care Provide r Encounter Details Date Type Department Care Team (Late st Contact Info) Description 03/13/2022 Prep for Surgery [facility] Medicine [address] [place] [address] Eri Méndez MD [address] [place] [address] Orthopedics & Sports Medicine, [facility] [place] [address] [email or web address] Social History Tobacco Use Types Packs/Day Years [...] on filedocumented in this encounter Care Teams Environmental Epidemiologist Relationship Specialty Start Date End Date Elier Malik NP PCP - General 03/19/19 08/27/22 Anjelica Harris NP [address] [place] [address] PCP - General Nurse Practitioner 08/28/22 documented as of this encounter Additional Source Comments The information contained in this document represents components of the legal health record. It is not the complete legal health record.[facility]
--- OUTSIDE RECORDS SUMMARY | 2024-12-24 12:51 | XMS_ITS | Encounter Summary ---
Author Organization [employer] Address [address] [facility] [address] 7[address] [place] [address] Care Team Providers Care Excelsior Machine Feeder Name Role Phone Wiley Damon MD Unavailable Unavaila Elizabeth Figueroa DO Primary Care Provider [phone] Encounter Details Date Type Department Care Team (Late st Contact Info) Description 04/26/2024 Orders Only [place] [facility] MED[facility] [address] [place] [address] Provider, MD Dayanara Social History Tobacco Use [...] Start Date Job End Date Stay at [employer] [facility] Not on file Not on file Not on file documented as of this encounter Plan of Treatment Upcoming Encounters Date Type Department Care Team (Late st Contact Info) Description 03/08/2025 9:00 AM EST Office Visit [place] [facility] OPTOMETRY [address] [place], [place] [id number] Nohemy Downey, TYRONE [address] [place] [address] documented as of this encounter Procedures Procedure [...] Serum (04/22/2024 8:46 AM EST) Blood Result [facility] Provider MD LAB BLOOD ORDERABLES Liza l Result * AST (04/22/2024 8:46 AM EST) Blood Venous blood specimen / Unknown Result [facility] Provider LAB BLOOD ORDERABLES Liza l Result * ALT (04/22/2024 8:46 AM EST) Blood Venous blood specimen / Unknown Result [facility] Provider LAB BLOOD ORDERABLES Liza l Result * C-reactive Protein (04/22/2024 8:46 AM EST) Blood Venous blood specimen / Unknown Result [facility] Provider LAB BLOOD ORDERABLES Liza l Result * CBC auto differential (04/22/2024 8:46 AM EST) Blood Venous blood specimen / Unknown Result [facility] Provider LAB BLOOD ORDERABLES Liza l Result * Sed Rate by Modified Westergren (04/22/2024 8:46 AM EST) Blood Venous blood specimen / Unknown Result [facility] Provider LAB BLOOD ORDERABLES Liza l Result documented in this encounter Visit Diagnoses Not on filedocumented in this encounter Additional Health Concerns Assessment Noted Time PHQ-9 Depression Total Score: 21 023 11:43 AM EDT documented as of this encounter Care Teams Excelsior Machine Feeder Relationship Specialty Start Date End Date Elizabeth Estrada DO [address] [place] [address] PCP - General Family Medicine 12/06/23 Wiley Damon MD [address] [place] [address] Rheumatology 10/23/23 documented as of this encounter
--- OUTSIDE RECORDS SUMMARY | 2024-12-24 12:51 | XMS_ITS | Encounter Summary ---
Author Organization [facility] Address [address] [facility] [address] [place] [address] Phone Care Team Providers Care Cad Engineer Name Role Phone Anjelica Harris WET PRESS TENDER Primary Care Provide r Encounter Details Date Type Department Care Team (Late st Contact Info) Description 10/19/2022 Transcribe Orders [facility] [address] [place] [address] Anjelica Harris, LAURIE [address] [place] [address] Social History Tobacco Use Types Packs/Day Years [...] on filedocumented in this encounter Care Teams Cad Engineer Relationship Specialty Start Date End Date Anjelica Harris NP [address] [place] [address] PCP - General Nurse Practitioner 08/28/22 documented as of this encounter Additional Source Comments The information contained in this document represents components of the legal health record. It is not the complete legal health record.[facility]
--- OUTSIDE RECORDS SUMMARY | 2024-12-24 12:51 | XMS_ITS | Encounter Summary ---
Author Organization [employer] [facility] Address [address] [facility] 7t [place] [address] Care Team Providers Care Tobacco Sample Puller Name Role Phone Anjelica Harris Primary Care Provider Un available Eliane Lora Primary Care Provider Wiley Winters MD Unavailable Elizabeth Gu DO Primary Care Provider [phone] Encounter Details Date Type Department Care Team [...] Description 03/08/2025 9:00 AM EST Office Visit [place] [facility] OPTOMETRY [address] [place] [address] Nohemy Downey OD [address] [place] [address] documented as of this encounter Visit Diagnoses Not on filedocumented in this encounter Care Teams Tobacco Sample Puller Relationship Specialty Start Date End Date Anjelica Harris FNP PCP - General Family Medicine 02/23/22 12/30/22 Eliane Lora PA PCP - General Family Medicine 12/31/22 12/05/23 Elizabeth Estrada DO [address] [place] [address] PCP - General Family Medicine 12/06/23 [place] [address] [place] [phone] Rheumatology 10/23/23 documented as of this encounter
--- OUTSIDE RECORDS SUMMARY | 2024-12-24 12:51 | XMS_ITS | Clinical Summary ---
Author Organization [facility] Address [address] [facility] [address] [place] [address] Phone Care Team Providers Care Multiple Slide Operator Name Role Phone Anjelica Harris NP [...] DIABETES 10/27/2022 10/28/2019 MAMMOGRAM 09/13/2023 09/12/2021, 01/20/2021 INFLUENZA VACCINE (#1) 2024 2, 12/16/2020, 02/19/2020, Additional history exists COVID-19 VACCINE (2 - 5-26 season) 2024 08/11/2020 COLONOSCOPY 11/02/2029 11/03/2019 COLORECTAL CANCER SCREENING [...] 53 Admit Type: Outpatient Gender: Female Room: [place] [address] Referring MD: Bhupinder Malik MD Exam Type: [...] bowel preparation was evaluated using the BBPS (Taberg Bowel Preparation Scale) withscores of: Right Colon [...] 12:59 PM Procedure Code(s): --- Professional --- 28422, Colonoscopy, flexible; with removal of tumor(s), polyp(s), or other lesion(s) by snare technique --- Technical --- 54783, Colonoscopy, flexible; with removal of tumor(s), polyp(s), or other lesion(s) by snare technique Diagnosis Code(s): --- Professional --- K64.8, Other hemorrhoids D12.2, Benign neoplasm of ascending colon R10.31, Right lower quadrant pain R19.4, Change in bowel habit --- Technical --- K64.8, Other hemorrhoids D12.2, Benign neoplasm of ascending colon R10.31, Right lower quadrant pain R19.4, Change in bowel habit CPT copyright 2018 [employer]. All rights reserved. The codes documented in this report are preliminary and upon battery service technician reviewmay be revised to meet current compliance requirements. Procedure Date: 11/03/2019 12:59:[address] [place] [address] Elier Malik NP GI PROCEDURE ORDERABL ES Final Result from Last 3 Months or Most Recently Relevant to Health Maintenance Insurance [employer] MEDICARE PART A & B [place] [address] [place] [address]HEALTH MEDICARE PART A & [place] A & B [facility] MEDICARE PART A & B Care Teams Multiple Slide Operator Relationship Specialty Start Date End Date Anjelica Harris NP [address] [place] [address] PCP - General Nurse Practitioner 08/28/22 Additional Source Comments The information contained in this document represents components of the legal health record. It is not the complete legal health record.[facility]
--- OUTSIDE RECORDS SUMMARY | 2024-12-24 12:51 | XMS_ITS | Encounter Summary ---
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 Not on file Not on file Not on file documented as of this encounter Plan of Treatment Upcoming Encounters Date Type Department Care Team (Late st Contact Info) Description 03/08/2025 9:00 AM EST Office Visit [place] [facility] OPTOMETRY [address] [place] [address] Nohemy Downey OD [address] [place] [address] documented as of this encounter Procedures Procedure [...] documented as of this encounter Care Teams Sales Superintendent Relationship Specialty Start Date End Date Elizabeth Estrada DO [address] [place] [address] PCP - General Family Medicine 12/06/23 Wiley Damon MD [address] [place] [phone] Rheumatology 10/23/23 documented as of this encounter
--- OUTSIDE RECORDS SUMMARY | 2024-12-24 12:51 | XMS_ITS | Encounter Summary ---
Author Organization [facility] Address [address] [facility] [address] [place] [address] Phone Care Team Providers Care Deck Worker Name Role Phone Anjelica Harris NP Primary Care Provide r Encounter Details Date Type Department Care Team (Late st Contact Info) Description 10/19/2022 Procedure Pass [place] Admitting Dept - Virtual Department [address] [place] [address] Social History Tobacco Use Types Packs/Day Years [...] on filedocumented in this encounter Care Teams Deck Worker Relationship Specialty Start Date End Date Anjelica Harris NP [address] [place] [address] PCP - General Nurse Practitioner 08/28/22 documented as of this encounter Additional Source Comments The information contained in this document represents components of the legal health record. It is not the complete legal health record.[facility]
--- OUTSIDE RECORDS SUMMARY | 2024-12-24 12:51 | XMS_ITS | Encounter Summary ---
Author Organization [employer] [facility] Address [address] [facility] 7 [place] [address] Care Team Providers Care Dog Groomer Name Role Phone Anjelica Harris Primary Care Provider Un available Eliane Lora Primary Care Provider Wiley Winters MD Unavailable Elizabeth Gu DO Primary Care Provider [phone] Encounter Details Date Type Department Care Team (Late st Contact Info) Description 04/05/2022 Abstract [facility] MEDICAL [address] [place] [address] Anejlica Harris FNP Social History Tobacco Use Types [...] Description 03/08/2025 9:00 AM EST Office Visit [facility] OPTOMETRY [address] [place] [address] Nohemy Downey OD [address] [place] [address] documented as of this encounter Visit Diagnoses Not on filedocumented in this encounter Care Teams Dog Groomer Relationship Specialty Start Date End Date Anjelica Harris FNP PCP - General Family Medicine 02/23/22 12/30/22 Eliane Lora PA PCP - General Family Medicine 12/31/22 12/05/23 Elizabeth Estrada DO [address] [place] [address] PCP - General Family Medicine 12/06/23 Wiley Damon MD [address] [place] [address] Rheumatology 10/23/23 documented as of this encounter
--- OUTSIDE RECORDS SUMMARY | 2024-12-24 12:51 | XMS_ITS | Encounter Summary ---
Author Organization [employer] [facility] Address [address] [facility] 7t [place] [address] Care Team Providers Care Order Control Clerk Blood Bank Name Role Phone Anjelica Harris Primary Care Provider Un available Eliane Lora Primary Care Provider Wiley Winters MD Unavailable Elizabeth Gu DO Primary Care Provider [phone] Encounter Details Date Type Department Care Team [...] Description 03/08/2025 9:00 AM EST Office Visit [place] [facility] OPTOMETRY [address] [place] [address] Nohemy Downey OD [address] [place] [address] documented as of this encounter Visit Diagnoses Not on filedocumented in this encounter Care Teams Order Control Clerk Blood Bank Relationship Specialty Start Date End Date Anjelica Harris FNP PCP - General Family Medicine 02/23/22 12/30/22 Eliane Lora PA PCP - General Family Medicine 12/31/22 12/05/23 Elizabeth Estrada DO [address] [place] [address] PCP - General Family Medicine 12/06/23 Wiley Damon MD [address] [place] [address] Rheumatology 10/23/23 documented as of this encounter
== END 2024-12-24 10:39 | disposition home or self-care (01) ==
LOC: HO.HKASLDS 10:38
PROVIDERS: Visit Provider Internal Medicine Rheumatology
DX: Z13.89 Encounter for screening for other disorder (principal)

== ENCOUNTER → 2025-01-26 13:18 | Outpatient (BNV) | payer OTHER, SELFPAY | PROVIDERS: PCP Family Medicine; Visit Provider Radiology Diagnostic Radiology | DX: M15.4 Erosive (osteo)arthritis (principal) | CPT/HCPCS: 73220 ==

== ENCOUNTER 2025-01-26 13:42 | Outpatient (REF) | payer OTHER, SELFPAY ==
--- NOTE | ~2025-01-26 | MR_ITS ---
EXAM: MR Hand Lt Wo/w Con IV contrast: 80 mL Gadavist TECHNIQUE: Multiplanar - multisequence imaging through an upper extremity, left hand, was performed without and with contrast. INDICATION: M15.4 - Erosive (osteo)arthritis, pain PRIOR: Hand x-ray December 04, 2024 FINDINGS: Ligaments: There is fluid signal across the membranous component of scapholunate ligament. Lunotriquetral ligament appears grossly intact. Collateral ligaments and IP and MCP joints appear grossly intact. Muscles, tendons, pulleys: There is no muscle edema, atrophy, or fatty streaking. Flexor and extensor tendons are grossly intact. There is no bowstringing of flexion tendons. Articular cartilage/Joint capsular structures: There is chronic ankylosis of the third digit DIP joint. There is severe diffuse cartilage loss in the DIP joints and moderate loss in the PIP joints. Central erosive changes are evident in the second and fifth DIP joints as well as the third and fifth PIP joints. There is an effusion at the IP joint of thumb with mild hyperenhancement of the synovium. Bones/Marrow: Edema like signal is evident involving the second distal phalanx and intra-articular marrow of the second DIP joint, minimally involving the dorsal second PIP joint, the central head of the third proximal phalanx, the fourth DIP and PIP joints, and at the fifth PIP joint. There is also marrow edema like signal at the IP joint of the thumb There is concordant enhancement of marrow signal changes. 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 Changes consistent with synovitis involving the IP joint of thumb. There is a joint effusion and mild synovial hyperenhancement. Scapholunate ligament: Suspected tear of the membranous component. Electronically signed by: Gus Head MD 01/26/2025 03:58 PM EDT
--- NOTE | ~2025-01-26 | MR_ITS ---
EXAM: MR Hand Rt Wo/w Con TECHNIQUE: Multiplanar - multisequence imaging through an upper extremity, right hand, was performed without and with IV contrast. IV contrast: 8 mL Gadavist INDICATION: M15.4 - Erosive (osteo)arthritis; INFLAMMATORY PRIOR: X-ray on December 04, 2024 FINDINGS: Ligaments: Collateral ligaments are grossly intact. There is increased generalized signal within the collateral ligaments of the PIP joints and DIP joints consistent with chronic degenerative change. Collateral ligaments the thumb are not well demonstrated due to oblique imaging plane and yaw ink artifact. Membranous component scapholunate ligament is not well seen in consistent with a tear. Volar band demonstrates increased signal. The dorsal band is not well-demonstrated. Muscles, tendons, pulleys: There is no bowstringing of flexor tendons. No flexor or extensor tendon disruption is identified. There is no muscle edema or atrophy. Articular cartilage/Joint capsular structures: There is diffuse deep partial and full-thickness articular cartilage loss involving DIP and PIP joints of the hand as well as the IP joint of the thumb. Articular cartilage appears intact otherwise. No joint effusions are evident. Bones/Marrow: On the STIR sequence, there is no sign of marrow edema. PIP joints demonstrate severe narrowing with large marginal osteophytes and chronic central erosions in the third and fourth digit Similar but milder changes are present in the PIP joints. The thumb demonstrate moderate narrowing and central chronic erosion. MR/MR hand RT wo/w con IMPRESSION: Moderate to severe degenerative changes consistent with erosive osteoarthritis without evidence of active erosive disease or synovitis. Scapholunate ligament: There is likely a tear of the membranous component of scapholunate ligament, possible tear of the dorsal band, and likely partial tear and/or degeneration of the volar band. Electronically signed by: Gus Head MD 01/26/2025 03:36 PM EDT
== END 2025-01-26 13:43 | disposition home or self-care (01) ==
LOC: HO.MRI 13:42
PROVIDERS: PCP Family Medicine; Visit Provider Internal Medicine Rheumatology
DX: M15.4 Erosive (osteo)arthritis (principal)
CPT/HCPCS: 73220; A9585

== ENCOUNTER 2025-02-11 10:42 | Outpatient (AMB) | payer OTHER, SELFPAY ==
--- NOTE | 2025-02-11 10:45 | A.OFFVIS_ITS ---
Vital Signs 02/11/25 10:46 Height 5 ft 4 in Weight 172 lb 6.424 oz BMI 29.6 BP 100/80 Blood Pressure Location Lt brachial Position Sitting Pulse 79 Pulse Source Pulse Oximeter Pulse Oximetry (%) 97 Oxygen Delivery Method Room Air Intake Visit Reasons: 3 MONTHS Intake Note: Patient presents for follow up on erosive osteoarthritis. Accompanied by: Self / Same As Patient Allergies No Known Allergies Allergy (Verified 02/11/25 10:45) HPI HPI 3 MONTHS: Details: She recently started zepbound. She is losing weight. Due to liver abnormality she has sparingly use Celebrex. She avoids Tylenol and has not used baclofen. She is having consistent pain in her hands with swelling of her left thumb. Dermatology appointment for evaluation of psoriasis is pending. [facility] Medical History Erosive (osteo)arthritis Surgical History S/P laparoscopic fundoplication Social History Alcohol intake: current Alcohol intake frequency: other Comment: socially Patient Tobacco Use Status: Former Tobacco user Physical Exam Vital Signs: Last Vital Signs Pulse 79 02/11/25 10:46 BP 100/80 02/11/25 10:46 Pulse Ox 97 02/11/25 10:46 Oxygen Delivery Method Room Air 02/11/25 10:46 BMI result Body Mass Index 29.6 Const Other: General: Comfortable CVS: RRR Respiratory: clear to auscultation bilaterally. Good respiratory effort MSK: Left IP joint swelling and tenderness. She has fusion left 3rd and 2nd right DIPJ. She can make a fist with her hands. No dacytlitis. Normal ROM of UE and LE Results Reviewed Results Reviewed: Ordering Physician: Wiley Damon MD Date of Service: 01/26/25 Procedure(s): MR murcia LT wo/w con Accession Number(s): [id number] cc: Elizabeth Estrada DO; Wiley Damon MD~ Reason for Exam: M15.4 - Erosive (osteo)arthritis EXAM: MR Murcia Lt Wo/w Con IV contrast: 80 mL Gadavist TECHNIQUE: Multiplanar - multisequence imaging through an upper extremity, left hand, was performed without and with contrast. INDICATION: M15.4 - Erosive (osteo)arthritis, pain PRIOR: Hand x-ray December 04, 2024 FINDINGS: Ligaments: There is fluid signal across the membranous component of scapholunate ligament. Lunotriquetral ligament appears grossly intact. Collateral ligaments and IP and MCP joints appear grossly intact. Muscles, tendons, pulleys: There is no muscle edema, atrophy, or fatty streaking. Flexor and extensor tendons are grossly intact. There is no bowstringing of flexion tendons. Articular cartilage/Joint capsular structures: There is chronic ankylosis of the third digit DIP joint. There is severe diffuse cartilage loss in the DIP joints and moderate loss in the PIP joints. Central erosive changes are evident in the second and fifth DIP joints as well as the third and fifth PIP joints. There is an effusion at the IP joint of thumb with mild hyperenhancement of the synovium. Bones/Marrow: Edema like signal is evident involving the second distal phalanx and intra-articular marrow of the second DIP joint, minimally involving the dorsal second PIP joint, the central head of the third proximal phalanx, the fourth DIP and PIP joints, and at the fifth PIP joint. There is also marrow edema like signal at the IP joint of the thumb There is concordant enhancement of marrow signal changes. 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 Changes consistent with synovitis involving the IP joint of thumb. There is a joint effusion and mild synovial hyperenhancement. Scapholunate ligament: Suspected tear of the membranous component. Patient: Akilah Chavis MR#: [id number] : 1965 Acct:[id number] Age/Sex: 59 / F ADM Date: 01/26/25 Loc: HO.MRI Attending Dr: Wiley Damon MD Ordering Physician: Wiley Damon MD Date of Service: 01/26/25 Procedure(s): MR hand RT wo/w con Accession Number(s): [id number] cc: Elizabeth Estrada DO; Wiley Damon MD~ Reason for Exam: M15.4 - Erosive (osteo)arthritis; INFLAMMATORY EXAM: MR Hand Rt Wo/w Con TECHNIQUE: Multiplanar - multisequence imaging through an upper extremity, right hand, was performed without and with IV contrast. IV contrast: 8 mL Gadavist INDICATION: M15.4 - Erosive (osteo)arthritis; INFLAMMATORY PRIOR: X-ray on December 04, 2024 FINDINGS: Ligaments: Collateral ligaments are grossly intact. There is increased generalized signal within the collateral ligaments of the PIP joints and DIP joints consistent with chronic degenerative change. Collateral ligaments the thumb are not well demonstrated due to oblique imaging plane and yaw ink artifact. Membranous component scapholunate ligament is not well seen in consistent with a tear. Volar band demonstrates increased signal. The dorsal band is not well-demonstrated. Muscles, tendons, pulleys: There is no bowstringing of flexor tendons. No flexor or extensor tendon disruption is identified. There is no muscle edema or atrophy. Articular cartilage/Joint capsular structures: There is diffuse deep partial and full-thickness articular cartilage loss involving DIP and PIP joints of the hand as well as the IP joint of the thumb. Articular cartilage appears intact otherwise. No joint effusions are evident. Bones/Marrow: On the STIR sequence, there is no sign of marrow edema. PIP joints demonstrate severe narrowing with large marginal osteophytes and chronic central erosions in the third and fourth digit Similar but milder changes are present in the PIP joints. The thumb demonstrate moderate narrowing and central chronic erosion. MR/MR hand RT wo/w con IMPRESSION: Moderate to severe degenerative changes consistent with erosive osteoarthritis without evidence of active erosive disease or synovitis. Scapholunate ligament: There is likely a tear of the membranous component of scapholunate ligament, possible tear of the dorsal band, and likely partial tear and/or degeneration of the volar band. Assessment & Plan Assessment & Plan (1) Erosive (osteo)arthritis: Comment: Stable with hydroxychloroquine. Code(s): M15.4 - Erosive (osteo)arthritis Category: Medical Plan: Continue hydroxychloroquine 300 mg daily. OCT exam was documented as being performed 08/2024 clinic note by do not have results. I have requested patient to have another appointment with her metal drill press operator for visual field testing. Labs for drug monitoring on high-risk medication ordered She will use prednisone 10 mg 1-3 days prn joint flare. Hold Celebrex when on prednisone. 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 MRI of bilateral hands with and without contrast confirms erosive osteoarthritis, synovitis of left IP joint with possible bilateral scapholunate ligament tears. We discussed next steps in clinical management of inflammatory arthritis with the addition of DMARD Sulfasalazine. She has persistent mild transaminitis. Her mother has hepatic steatosis. Code(s): M19.90 - Unspecified osteoarthritis, unspecified site Category: Medical Plan: Continue hydroxychloroquine 300 mg daily. OCT exam was documented as being performed 08/2024 clinic note by do not have results. I have requested patient to have another appointment with her metal drill press operator for visual field testing. Labs for drug monitoring on high-risk medication ordered After lab results are back, she will start Sulfasalazine 500 mg twice a day If LFTs remains elevated, I will ordered liver ultrasound with elastography Dermatology evaluation for psoriasis I have ordered SLE workup to complete evaluation for low titer positive DESTINEY She will continue to use Celebrex 200 mg prn joint pain Return to clinic in 3 months (3) Lumbar spondylosis: Comment: Chronic back pain. She had benefit with PT. She had to discontinue PT because her mother became hospice care and is now bed-bound. Code(s): M47.816 - Spondylosis without myelopathy or radiculopathy, lumbar region Category: Medical Plan: She will resume PT when she is able to Continue Celebrex 200 mg PRN joint pain Return to clinic in 3 months (4) Scalp psoriasis: Code(s): L40.9 - Psoriasis, unspecified Category: Medical Plan: Dermatology referral to confirm diagnosis and further management (5) Other senior care (current) drug therapy: Code(s): Z79.899 - Other terminal operator (current) drug therapy Category: Medical Plan: See above (6) Cervicalgia: Comment: Due to myofascial strain. She has benefit on baclofen Code(s): M54.2 - Cervicalgia Category: Medical Plan: Continue baclofen 10 mg prn Return to clinic in 3 months Orders: Orders UA ClnCatch+Micro w/rflx Cult Today R76.0 - Raised antibody titer Complement C3 Today R76.0 - Raised antibody titer Complement C4 Today R76.0 - Raised antibody titer Creatinine Today Z79.899 - Other terminal operator (current) drug therapy Protein Creatinine Ratio, Ur Today R76.0 - Raised antibody titer Anti DNA DS Antibody Today R76.0 - Raised antibody titer Sm Sm/CLAIMS AUDITOR Antibodies Today R76.0 - Raised antibody titer Complete Blood Count Auto Diff Today Z79.899 - Other senior care (current) drug therapy Alanine Aminotransferase Today Z79.899 - Other senior care (current) drug therapy Aspartate Amino Transferase Today Z79.899 - Other terminal operator (current) drug therapy Coding Level of Care Code Est Pt Level 4 (29477) Complex EM visit Add On G2211 Diagnoses Erosive (osteo)arthritis M15.4 Inflammatory arthritis M19.90 Lumbar spondylosis M47.816 Scalp psoriasis L40.9 Other senior care (current) drug therapy Z79.899 Cervicalgia M54.2
[2025-02-11 10:46] VITALS: BP 100/80; PULSE 79; O2SAT 97; BMI 29.6
--- OUTSIDE RECORDS SUMMARY | 2025-02-11 12:54 | XMS_ITS | Encounter Summary ---
Author Organization [facility] Address [address] [place] [phone] Phone Care Team Providers Care Rock Loader Name Role Phone Elier Malik MANAGER PAPER Primary Care Provide r Anjelica Harris MANAGER PAPER Primary Care Provide r Encounter Details Date Type Department Care Team (Late Contact Info) Description 02/21/2021 Ancillary Orders [facility],Outside Imaging [address] [place], [place] [id number] System, Provider Not In, [facility] [address] [address] Social History Tobacco Use Types Packs/Day Years [...] Encounters Date Type Department Care Team (Late Contact Info) Description 04/21/2025 8:30 AM EST Office Visit [facility] [address] [place] [address] Unknown, Unknown, Lois Lainez, MANAGER PAPER [address] [place], [place] [phone] Scheduled Procedures Name Priority Associated Diagnoses Date/Ti [...] on filedocumented in this encounter Care Teams Rock Loader Relationship Specialty Start Date End Date Elier Malik NP PCP - General 03/19/19 08/27/22 Anjelica Harris NP [address] [place] [address] PCP - General Nurse Practitioner 08/28/22 documented as of this encounter Additional Source Comments The information contained in this document represents components of the legal health record. It is not the complete legal health record.[facility]
--- OUTSIDE RECORDS SUMMARY | 2025-02-11 12:54 | XMS_ITS | Patient Health Record ---
Author Organization [facility] Address [address] [place] [phone] Care Team Providers Care Government Affairs Specialist Name Role Phone Eliane Bourne Primary Care Provider Unavaila Song Ramires Unavailable [phone] Allergies No Known Allergies Reason For Referral No Information Medications Medication SIG (Take, Route, Frequency, Duration) Notes Start Date End Date Status Baclofen 10 MG TAKE 1 TABLET BY MOUTH EVERY NIGHT AT BEDTIME Oral; Duration: 30 Active Incruse Ellipta 62.5 MCG/ACT Inhalation; Duration: 30 Active Albuterol Sulfate HFA 108 (90 Base) MCG/ACT INHALE 2 PUFFS BY MOUTH EVERY 6 HOURS NEEDED FOR WHEEZING Inhalation; Duration: 25 J40,Unavailab le Active Hydroxychloroquine Sulfate 200 MG Oral; Duration: 90 Active Celecoxib 200 MG Oral; Duration: 90 Active Flovent HFA 110 MCG/ACT Inhalation; Duration: 30 Active Immunizations Vaccine Route Administration Date [...] Problem Status W/U Status Risk Notes Problem Curiel's esophagus (054802441) 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 Problem Constipation (01972667) Constipation, unspecified constipation type (K59.00) Active confirmed Plan Of Treatment No Information Insurance Providers Payer Name Payer Address Payer Phone Subscriber Number Group Number Insured Name Patient Relationship to Insured Coverage Start Date Coverage End Date MEDICARE OF [place] [address] BILL FERMIN [id number] CESARIO SCHWAB Self - patient is the insured MEDICAID OF [facility] [address] [place] [phone] [id number] CESARIO SCHWAB Self - patient is the insured Medical (General) History Medical History History ICD Code Denies MS,DM,CVA,Lung disease,renal dise ase Erosive osteoarthritis COPD 3 negative colonoscopies Curiel's esophagus/GERD Constipation Surgical History Surgery Date(Month/Year) Fundoplication hiatal hernia Dr. Edvin porter 2019
--- OUTSIDE RECORDS SUMMARY | 2025-02-11 12:54 | XMS_ITS | Encounter Summary ---
Author Organization [facility] Address [address] [place] [address] Phone Care Team Providers Care Vp Rheumatology Name Role Phone Elier Malik NP Primary Care Provide r Anjelica Harris INGREDIENT SCALER HELPER Primary Care Provide r Encounter Details Date Type Department Care Team (Late st Contact Info) Description 02/09/2021 Procedure Pass [address] [place] [address] Social History Tobacco Use Types Packs/Day Years [...] Care Team (Late st Contact Info) Description 04/21/2025 8:30 AM EST Office Visit [facility] Gastro[facility] [address] [place] [phone] Unknown, Unknown, Lois Lainez NP [address] [place] [address] Scheduled Procedures Name Priority Associated Diagnoses Date/Ti me COLONOSCOPY Adenomatous polyp of colon, unspecified part of colon documented as of this encounter Visit Diagnoses Not on filedocumented in this encounter Care Teams Vp Rheumatology Relationship Specialty Start Date End Date Elier Malik, LAURIE PCP - General 03/19/19 08/27/22 Anjelica Harris NP [address] [place] [address] PCP - General Nurse Practitioner 08/28/22 documented as of this encounter Additional Source Comments The information contained in this document represents components of the legal health record. It is not the complete legal health record.[facility]
--- OUTSIDE RECORDS SUMMARY | 2025-02-11 12:56 | XMS_ITS | Encounter Summary ---
Author Organization [employer] Address [address] [place] [address] Care Team Providers Care Terminal Gauger Supervisor Name Role Phone Wiley Damon MD Unavailable Unavaila ble Elizabeth Estrada DO Primary Care Provider [phone] Encounter Details Date Type Department Care Team (Late st Contact Info) Description 07/16/2024 Orders Only [facility] [address] [place] [address] Elizabeth Estrada DO [address] [place] [address] Social History Tobacco Use Types Packs/Day Years [...] Start Date Job End Date Stay at [employer] [facility] Mom Not on file Not on file Not on file documented as of this encounter Plan of Treatment Upcoming Encounters Date Type Department Care Team (Late st Contact Info) Description 03/08/2025 9:00 AM EST Office Visit [facility] OPTOMETRY [address] [place] [address] Nohemy [place] OD [address] [place] [address] documented as of this encounter Procedures Procedure [...] documented as of this encounter Care Teams Terminal Gauger Supervisor Relationship Specialty Start Date End Date Elizabeth Estrada DO [address] [place] [address] PCP - General Family Medicine 12/06/23 Wiley Damon MD [address] [place] [phone] Rheumatology 10/23/23 documented as of this encounter
--- OUTSIDE RECORDS SUMMARY | 2025-02-11 12:56 | XMS_ITS | Encounter Summary ---
Author Organization [employer] Address [address] [place] [address] Care Team Providers Care Credit Investigator Name Role Phone Wiley Damon MD Unavailable Unavaila ble Elizabeth Estrada DO Primary Care Provider [phone] Encounter Details Date Type Department Care Team (Late st Contact Info) Description 01/25/2024 Orders Only [facility] [address] [place] [address] Elizabeth Estrada DO [address] [place] [address] Social History Tobacco Use Types Packs/Day Years [...] Start Date Job End Date Stay at [facility] Mom Not on file Not on file Not on file documented as of this encounter Plan of Treatment Upcoming Encounters Date Type Department Care Team (Late st Contact Info) Description 03/08/2025 9:00 AM EST Office Visit [facility] OPTOMETRY [address] [place] [address] Nohemy [place] OD [address] [place] [address] documented as of this encounter Procedures Procedure [...] (Negative) Lay letter mailed to patient WSN: [id number] Ordering Physician: Alejandra Steen Dictated By: Julia Calero MD Dictated Date/Time: 02/18/24 5:04 pm Reviewed By: Julia Calero MD Signed By: Julia Calero MD Signed Date/Time: 02/18/24 5:04 pm Transcribed By: GABRIEL Groundskeeping Maintenance Worker Date/Time: 02/18/24 5:01 pm Birads: Procedure Note [...] (Negative) Lay letter mailed to patient WSN: [id number] Ordering Physician: Alejandra Steen Dictated By: Julia Calero MD Dictated Date/Time: 02/18/24 5:04 pm Reviewed By: Julia Calero MD Signed By: Julia Calero MD Signed Date/Time: 02/18/24 5:04 pm Transcribed By: GABRIEL Groundskeeping Maintenance Worker Date/Time: 02/18/24 5:01 pm Birads: Alejandra Steen DRY MAN IMG BI PROCEDURES Liza l Result * CBC auto differential (10/17/2023 8:59 AM EDT) Blood Venous blood specimen / Unknown Elizabeth Estrada DO LAB BLOOD ORDERABLES Final Res ult documented in this encounter Visit Diagnoses Not on filedocumented in this encounter Additional Health Concerns Assessment Noted Time PHQ-9 Depression Total Score: 21 023 11:43 AM EDT documented as of this encounter Care Teams Credit Investigator Relationship Specialty Start Date End Date Elizabeth Estrada DO [address] [place] [address] PCP - General Family Medicine 12/06/23 Wiley Damon MD [address] [place] [phone] Rheumatology 10/23/23 documented as of this encounter
--- OUTSIDE RECORDS SUMMARY | 2025-02-11 12:56 | XMS_ITS | Encounter Summary ---
Author Organization [employer] [facility] Address [address] [facility] [address] [facility] [address] [place] [address] Care Team Providers Care Defence Force Senior Officer Name Role Phone Anjelica Harris Primary Care Provider Un available Eliane Lora Primary Care Provider [phone] Wiley Damon MD Unavailable Unavaila ble Elizabeth Estrada DO Primary Care Provider [phone] Encounter Details Date Type Department Care Team [...] Description 03/08/2025 9:00 AM EST Office Visit [facility] OPTOMETRY [address] [place] [address] Nohemy [place] OD [address] [place] [address] documented as of this encounter Visit Diagnoses Not on filedocumented in this encounter Care Teams Defence Force Senior Officer Relationship Specialty Start Date End Date Anjelica Harris FNP PCP - General Family Medicine 02/23/22 12/30/22 Eliane Lora PA PCP - General Family Medicine 12/31/22 12/05/23 Elizabeth Estrada DO [address] [place] [address] PCP - General Family Medicine 12/06/23 Wiley Damon MD [address] [place] [phone] Rheumatology 10/23/23 documented as of this encounter
--- OUTSIDE RECORDS SUMMARY | 2025-02-11 12:56 | XMS_ITS | Encounter Summary ---
Author Organization [employer] Address [address] [place] [address] Care Team Providers Care Roof Foreman Name Role Phone Wiley Damon MD Unavailable Unavaila ble Elizabeth Estrada DO Primary Care Provider [phone] Encounter Details Date Type Department Care Team (Late st Contact Info) Description 12/17/2024 Orders Only [facility] [address] [place] [address] Elizabeth Estraad DO [address] [place] [address] Social History Tobacco Use Types Packs/Day Years [...] Start Date Job End Date Stay at [employer] Mom Not on file Not on file Not on file documented as of this encounter Plan of Treatment Upcoming Encounters Date Type Department Care Team (Late st Contact Info) Description 03/08/2025 9:00 AM EST Office Visit [facility] OPTOMETRY [address] [place] [phone] Nohemy [place] OD [address] [place] [address] documented as of this encounter Procedures Procedure [...] documented as of this encounter Care Teams Roof Foreman Relationship Specialty Start Date End Date Elizabeth Estrada DO [address] [place] [address] PCP - General Family Medicine 12/06/23 Wiley Damon MD [address] [place] [phone] Rheumatology 10/23/23 documented as of this encounter
--- OUTSIDE RECORDS SUMMARY | 2025-02-11 12:56 | XMS_ITS | Clinical Summary ---
Author Organization [employer] Address [address] [place] [address] Care Team Providers Care Marine Firefighter Name Role Phone Wiley Damon MD Unavailable Unavaila Elizabeth Figueroa DO Primary Care Provider [phone] Allergies No known active allergies Medications Tylenol Extra Strength 500 MG tablet 03/19/20 22 Active biotin 1000 MCG tablet Take 1,000 mcg by mouth in the morning. Active celecoxib (CeleBREX) 200 MG capsule 1 capsule in the morning. Active hydroxychloroquine (Plaquenil) 200 MG tablet 03/13/20 22 Active Multiple Vitamins-Minerals (Vitrum Senior) tablet Take 1 tablet by mouth in the morning. Active fluticasone (Flonase) 50 MCG/ACT nasal spray 1 spray in the morning. 01/28/20 19 Active Diclofenac Sodium 1 % gel 07/16/19 24 Active LORazepam (Ativan) 0.5 MG tabletIndications: Anxiety Take 1 tablet (0.5 mg) by mouth if needed in the morning and at bedtime for anxiety for up to 28 days. 56 tablet 01/20/20 24 Active albuterol (2.5 MG/3ML) 0.083% nebulizer solutionIndication s:Chronic obstructive pulmonary disease, unspecified COPD type (CMS/HCC) (HCC) Take 2.5 mg by nebulization if needed in the morning, at noon, in the evening, and at bedtime for wheezing or shortness of breath. 120 mL 03/17/20 24 Active traMADol (Ultram) 50 MG tablet Take 50 mg by mouth. 02/27/20 24 Active baclofen (Lioresal) 10 MG tablet Take 10 mg by mouth if needed. 07/25/19 25 Active clobetasol (Temovate) 0.05 % cream Apply topically if needed in the morning and at bedtime (itching). 60 g 08/04/19 25 Active azelastine (Optivar) 0.05 % ophthalmic solutionIndication s:Allergic conjunctivitis of both eyes Administer 1 drop into both eyes 2 times daily. 6 mL 3 08/28/19 25 026 Active Additional Information Patient not taking.Reported on 11/27/2024 hydrOXYzine HCl (Atarax) 25 MG tabletIndications: Opiate withdrawl Take 1 tablet (25 mg) by mouth every 8 (eight) hours if needed for itching for up to 14 days. 42 tablet 08/30/19 25 Active albuterol 108 (90 Base) MCG/ACT inhalerIndications :Bronchitis INHALE 2 PUFFS BY MOUTH EVERY 6 HOURS NEEDED FOR WHEEZING 8.5 g 2 12/17/19 25 Active Zepbound 2.5 MG/0.5ML solution auto-injectorIndic ations:Obstructive sleep apnea,Class 1 obesity without serious comorbidity with body mass index (BMI) of 31.0 to 31.9 in adult, unspecified obesity type ADMINISTER 2.5 MG UNDER THE SKIN 1 TIME EVERY WEEK 2 mL 01/09/20 25 Active Tirzepatide-Weight Management (Zepbound) 5 MG/0.5ML solution auto-injectorIndic ations:Prediabetes ,Obstructive sleep apnea,Class 1 obesity without serious comorbidity with body mass index (BMI) of 31.0 to 31.9 in adult, unspecified obesity type Inject 0.5 mL (5 mg) under the skin 1 (one) time per week. 2 mL 01/27/20 25 Active Active Problems Problem Noted Date Diagnosed Date COVID-19 03/17/2024 Assessment & Plan (03/17/2024 6:24 PM EST): COVID home test positive this a.m. after attending concert in [place] on Saturday (3 days ago), feverish feeling/chills/fatigue but no n/v/d and wants Paxlovid - states worked well for her last time had Covid. No contraindications. No current COPD exacerbation. E rx sent and states her son will picker box operator for her this evening. Akilah agrees [...] specified site [facility]10[facility]24/2023[facility], R IP [...] Encounters Date Type Department Care Team Description 01/27/2025 Orders Only [facility] Information Management [address] [place] [address] Elizabeth Estrada DO 01/25/2025 Refill [facility] MEDICAL [address] [place] [address] Elizabeth Estrada DO Prediabetes (Primary Dx); Obstructive sleep apnea; Class 1 obesity without serious comorbidity with body mass index (BMI) of 31.0 to 31.9 in adult, unspecified obesity type 01/07/2025 Refill [facility] [address] [place] [address] Elizabeth Estrada DO Obstructive sleep apnea; Class 1 obesity without serious comorbidity with body mass index (BMI) of 31.0 to 31.9 in adult, unspecified obesity type 12/23/2024 10:30 AM EDT Office Visit [facility] OPTOMETRY [address] [place] [address] Nohemy Downey, OD Retinal cyst of right eye (Primary Dx); Encounter for long-term (current) use of medications; Myopia of both eyes 12/22/2024 Telephone [facility] MED[facility] [address] [place] [phone] Elizabeth Estrada DO sleep machine 12/17/2024 Orders Only [facility] Information Management [address] [place] [address] Elizabeth Estrada DO 12/16/[address] [address] Elizabeth Estrada DO Prior Authorization (Zepbound) 12/15/2024 Refill [facility] MEDICAL [address] [facility] [place] [address] Elizabeth Estrada DO Bronchitis (Primary Dx) 12/08/2024 Orders Only [facility] Information Management [address] [facility] [place] [address] Elizabeth Estrada DO 11/27/2024 10:15 AM EDT Office Visit [facility] [address] [place] [address] Elizabeth Estrada DO Obstructive sleep apnea (Primary Dx); Class 1 obesity without serious comorbidity with body mass index (BMI) of 31.0 to 31.9 in adult, unspecified obesity type; Generalized pruritus 11/27/[address] [address] Wanda Cheney Prior Authorization (KHUSHBU Baldwin) 11/27/2024 Travel 11/18/[address] [address] Elizabeth Estrada DO 11/17/2024 Results Follow-Up [address] [address] Elizabeth Estrada DO Polysomnography from Last 3 Months Immunizations Immunization Administration [...] Start Date Job End Date Stay at [facility] Mom Not on file Not [...] Description 03/08/2025 9:00 AM EST Office Visit [facility] OPTOMETRY [address] [place] [address] Nohemy Downey, OD [address] [place] [address] Health Maintenance Due Date Last Done Comments CT Colonography 1966 FIT DNA/Cologuard 1966 FIT 1966 FOBT 1966 HIV Screening 1966 Sigmoidoscopy 1966 Alcohol/Substance Use Screening 1978 Hepatitis A Vaccines (1 of 2 - [...] Additional history exists Influenza Vaccine (#1) 2024 4, 12/05/2022, 02/23/2022, Additional history exists Diabetes: Hemoglobin A1C 01/19/2025 024, 02/23/2022, 08/07/2021, Additional history exists SDOH Screening 01/19/2025 01/20/2024 Depression Monitoring 05/30/2025 11/27/2024, 025 Disability Screening 08/29/2025 08/29/2024 Tobacco Screening 12/23/2025 12/23/2024 Mammogram 02/17/2026 02/18/2024, 060 10/2021, 09/12/2021, Additional history exists Lipid Panel 02/23/2027 02/23/2022, 05/0 05/2021, 07/06/2020, Additional history exists Colonoscopy 11/02/2029 [...] Procedure Name Priority Date/Time Associated Diagnosis Comments MRI HAND RIGHT W WO CONTRAST Routine 01/26/2025 9:55 AM EDT DESTINEY SCREEN, IFA, W/REFL TITER AND PATTERN [...] Recently Relevant to Health Maintenance Results * MRI HAND RIGHT W WO CONTRAST (01/26/2025 9:55 AM EDT) Anatomical Region Laterality Modality Magnetic Resonan ce [facility] DO IMG MRI PROCEDURES Final Resul t * DESTINEY Screen,IFA, with Reflex to Titer and Pattern (12/04/2024 12:47 PM EDT) Blood Venous blood specimen / Unknown [facility] LAB BLOOD ORDERABLES Final Res ult * XR Hand 3+Views Bilateral (12/04/2024 10:01 AM EDT) Anatomical Region Laterality Modality Upper Extremities, Hand Bilateral Radiogra phic Imaging [facility] DO IMG XR PROCEDURES Final Result * Polysomnography (11/12/2024) [facility] DO SLEEP CENTER ORDERABLES Final Result * BI [...] (Negative) Lay letter mailed to patient WSN: [id number] Ordering Physician: Alejandra Steen Dictated By: Julia Calero MD Dictated Date/Time: 02/18/24 5:04 pm Reviewed By: Julia Calero MD Signed By: Julia Calero MD Signed Date/Time: 02/18/24 5:04 pm Transcribed By: GABRIEL Engineering Scientist Date/Time: 02/18/24 5:01 pm Birads: Procedure Note [...] (Negative) Lay letter mailed to patient WSN: [id number] Ordering Physician: Alejandra Steen Dictated By: Julia Calero MD Dictated Date/Time: 02/18/24 5:04 pm Reviewed By: Julia Calero MD Signed By: Julia Calero MD Signed Date/Time: 02/18/24 5:04 pm Transcribed By: GABRIEL Engineering Scientist Date/Time: 02/18/24 5:01 pm Birads: Alejandra Steen [facility] IMG BI PROCEDURES Liza l Result * (ABNORMAL) POCT glycosylated hemoglobin (Hgb A1c) (01/20/2024 8:45 AM EDT) Pathologist [facility] Hemoglobin A1C 5.7 4.0 - 6.0 % Blood Capillary blood specimen / Unknown 01/20/2024 8:45 AM EDT Elizabeth Estrada DO POINT OF CARE TEST ENTER/EDIT ORDERABLES Final Result * (ABNORMAL) -Lipid Panel (02/23/2022 10:06 AM EST) Pathologist [facility] LDL CHOLESTEROL, CALCULATED 136(H) (0-130) MG/DL CONVERTED [facility]GACY LABS CHOLESTEROL, TOTAL 271(H) (<200) MG/DL [facility] HDL CHOL 113 (>39) MG/DL CONVERTED [facility] NON HDL CHOLESTEROL (CALC) 158 (<160) MG/DL CONVERT[facility] TRIGLYCERIDE 112 (<150) MG/DL CONVERTED [facility] 02/23/2022 10:0 6 AM EST Anjelica Harris [facility] LAB BLOOD ORDERABLES Liza l Result CONVERTED LEGACY LABS * Pap Smear (08/22/2021) Pathologist [facility] Pap smear Pap negative, HPV negative Historical Provider HEALTH MAINTENANCE Final Result * (ABNORMAL) Hm Colonoscopy (11/03/2019) Pathologist [facility] Colonoscopy Abnormal(A ) Normal Historical Provider HEALTH MAINTENANCE Final Result * Hepatitis C Antibody (10/15/2016 1:46 PM EDT) [facility] Hepatitis C Antibody Nonreactive Blood 10/15/2016 1:46 PM EDT us Historical Provider POINT OF CARE TEST ENTER/ EDIT ORDERABLES Final Result from Last 3 Months or Most Recently Relevant to Health Maintenance Insurance CCA ONE CARE < 65 CCA ONE CARE < 65 VSP Care Teams Marine Firefighter Relationship Specialty Start Date End Date Elizabeth Estrada DO [address] [place] [address] PCP - General Family Medicine 12/06/23 Wiley Damon MD [facility] [place] [address] Rheumatology 10/23/23
--- OUTSIDE RECORDS SUMMARY | 2025-02-11 12:56 | XMS_ITS | Encounter Summary ---
Author Organization [employer] Address [address] [place] [address] Care Team Providers Care Forest Fire Prevention Specialist Name Role Phone Wiley Damon MD Unavailable Unavaila ble Elizabeth Estrada DO Primary Care Provider [phone] Encounter Details Date Type Department Care Team (Late st Contact Info) Description 01/27/2025 Orders Only [facility] Information Management [address] [place] [address] Elizabeth Estrada DO [address] [place] [address] Social History Tobacco Use Types Packs/Day Years [...] Start Date Job End Date Stay at [employer] Mom Not on file Not on file Not on file documented as of this encounter Plan of Treatment Upcoming Encounters Date Type Department Care Team (Late st Contact Info) Description 03/08/2025 9:00 AM EST Office Visit [facility] OPTOMETRY [address] [place] [phone] Nohemy Downey OD [address] [place] [address] documented as of this encounter Procedures Procedure Name Priority Date/Time Associated Diagnosis Comments MRI HAND RIGHT W WO CONTRAST Routine 01/26/2025 9:55 AM EDT documented in this encounter Results * MRI HAND RIGHT W WO CONTRAST (01/26/2025 9:55 AM EDT) Anatomical Region Laterality Modality Magnetic Resonan ce Elizabeth Estrada DO IMG MRI PROCEDURES Final Resul t documented in this encounter Visit Diagnoses Not on filedocumented in this encounter Additional Health Concerns Assessment Noted Time PHQ-9 Depression Total Score: 10 11/27/ 025 10:35 AM EDT documented as of this encounter Care Teams Forest Fire Prevention Specialist Relationship Specialty Start Date End Date Elizabeth Estrada DO [address] [place] [address] PCP - General Family Medicine 12/06/23 Wiley Damon MD [address] [place] [address] Rheumatology 10/23/23 documented as of this encounter
--- OUTSIDE RECORDS SUMMARY | 2025-02-11 12:56 | XMS_ITS | Encounter Summary ---
Author Organization [employer] Address [address] [place] [address] Care Team Providers Care Solar Energy Systems Designer Name Role Phone Anjelica Harris VEENA Primary Care Provider Un available Eliane Lora Primary Care Provider [phone] Wiley Damon MD Unavailable Elizabeth Gu DO Primary Care Provider [phone] Encounter Details Date Type Department Care Team (Late st Contact Info) Description 07/31/2022 Abstract [place] [facility] MEDICAL [address] [place] [address] Hyun Mace, FISH HATCHERY SUPERVISOR [address] [place] [address] Social History Tobacco Use Types Packs/Day Years [...] AM EST Office Visit [place] [facility] OPTOMETRY [address] [place] [address] Nohemy Downey OD [address] [place] [address] documented as of this encounter Visit Diagnoses Not on filedocumented in this encounter Additional Health Concerns Assessment Noted Time PHQ-9 Depression Total Score: 21 023 11:43 AM EDT documented as of this encounter Care Teams Solar Energy Systems Designer Relationship Specialty Start Date End Date Anjelica Harris FNP PCP - General Family Medicine 02/23/22 12/30/22 Eliane Lora PA PCP - General Family Medicine 12/31/22 12/05/23 Elizabeth Estrada DO [address] [place] [address] PCP - General Family Medicine 12/06/23 Wiley Damon MD [address] [place] [address] Rheumatology 10/23/23 documented as of this encounter
--- OUTSIDE RECORDS SUMMARY | 2025-02-11 12:56 | XMS_ITS | Clinical Summary ---
Author Organization [facility] Address [address] [facility] [address] [place] [address] Phone Care Team Providers Care Ornament Stitcher Name Role Phone Anjelica Harris NP Primary [...] 08/28/2022 8:34 AM EDT Plan of Treatment Upcoming Encounters Date Type Department Care Team (Late st Contact Info) Description 04/21/2025 8:30 AM EST Office Visit [facility] Gastro[facility]ology Clinic [address] [place] [address] Unknown, Unknown, MD Gray, Lois Reeder, LAURIE [address] [place] [address] Scheduled Procedures Name Priority Associated Diagnoses Date/Ti [...] 12/16/2020, 02/19/2020, Additional history exists COVID-19 VACCINE ( season) 2024 08/11/2020 COLONOSCOPY 11/02/2029 11/03/2019 COLORECTAL CANCER SCREENING 11/02/2029 Adult Td,Tdap Booster 12/16/2030 12/16/2020 , 04/27/2013, 11/23/2010, Additional history exists RSV VACCINE (1 - 1-dose 75+ series) 2041 HEPATITIS A VACCINES Aged Out No long [...] 53 Admit Type: Outpatient Gender: Female Room: [facility] 04 Referring MD: Bhupinder Malik MD Exam Type: [...] bowel preparation was evaluated using the BBPS ([place] Bowel Preparation Scale) withscores of: Right Colon [...] 12:59 PM Procedure Code(s): --- Professional --- 16529, Colonoscopy, flexible; with removal of tumor(s), polyp(s), or other lesion(s) by snare technique --- Technical --- 66647, Colonoscopy, flexible; with removal of tumor(s), polyp(s), or other lesion(s) by snare technique Diagnosis Code(s): --- Professional --- K64.8, Other hemorrhoids D12.2, Benign neoplasm of ascending colon R10.31, Right lower quadrant pain R19.4, Change in bowel habit --- Technical --- K64.8, Other hemorrhoids D12.2, Benign neoplasm of ascending colon R10.31, Right lower quadrant pain R19.4, Change in bowel habit CPT copyright 2018 [employer]. All rights reserved. The codes documented in this report are preliminary and upon sports equipment supervisor reviewmay be revised to meet current compliance requirements. Procedure Date: 11/03/2019 12:59:[address] [place] [address] Elier Malik NP GI PROCEDURE ORDERABL ES Final Result from Last 3 Months or Most Recently Relevant to Health Maintenance Insurance [employer] MEDICARE PART A & B [place] & [place] [address] [place] [address]HEALTH MEDICARE PART A & [place] [id number] [place] B [facility] MEDICARE PART A & B Care Teams Ornament Stitcher Relationship Specialty Start Date End Date Anjelica Harris NP [address] [place] [address] PCP - General Nurse Practitioner 08/28/22 Additional Source Comments The information contained in this document represents components of the legal health record. It is not the complete legal health record.[facility]
--- OUTSIDE RECORDS SUMMARY | 2025-02-11 12:56 | XMS_ITS | Encounter Summary ---
Author Organization [employer] Address [address] [place] [address] Care Team Providers Care Grid Maker Name Role Phone Wiley Damon MD Unavailable Unavaila ble Elizabeth Estrada DO Primary Care Provider Encounter Details Date Type Department Care Team (Late st Contact Info) Description 12/08/2024 Orders Only [facility] Information Management [address] [place] [address] Elizabeth Estrada DO [address] [place] [address] Social History Tobacco Use Types Packs/Day Years [...] Start Date Job End Date Stay at [employer] Mom Not on file Not on file Not on file documented as of this encounter Plan of Treatment Upcoming Encounters Date Type Department Care Team (Late st Contact Info) Description 03/08/2025 9:00 AM EST Office Visit [facility] OPTOMETRY [address] [place] [phone] Nohemy Downey OD [address] [place] [address] documented as of this encounter Procedures Procedure [...] documented as of this encounter Care Teams Grid Maker Relationship Specialty Start Date End Date Elizabeth Estrada DO [address] [place] [address] PCP - General Family Medicine 12/06/23 Wiley Damon MD [address] [place] [address] Rheumatology 10/23/23 documented as of this encounter
--- OUTSIDE RECORDS SUMMARY | 2025-02-11 12:56 | XMS_ITS | Encounter Summary ---
Author Organization [employer] Address [address] [address] [place] [address] Care Team Providers Care Purler Name Role Phone Wiley Damon MD Unavailable Unavaila Elizabeth Figueroa DO Primary Care Provider [phone] Encounter Details Date Type Department Care Team (Late st Contact Info) Description 04/28/2024 Orders Only [place] [facility] MEDICAL [address] [place] [address] Provider, MD Dayanara Social History Tobacco Use [...] Start Date Job End Date Stay at [employer] Not on file Not on file Not on file documented as of this encounter Plan of Treatment Upcoming Encounters Date Type Department Care Team (Late st Contact Info) Description 03/08/2025 9:00 AM EST Office Visit [place] [facility] OPTOMETRY [address] [place], [place] [phone] Nohemy Downey OD [address] [place], [place] [phone] documented as of this encounter Procedures Procedure [...] documented as of this encounter Care Teams Purler Relationship Specialty Start Date End Date Elizabeth Estrada DO [address] [place] [address] PCP - General Family Medicine 12/06/23 Wiley Damon MD [address] [place] [address] Rheumatology 10/23/23 documented as of this encounter
--- OUTSIDE RECORDS SUMMARY | 2025-02-11 12:56 | XMS_ITS | Encounter Summary ---
Author Organization [facility] Address [address] [place] [address] [place] [address] Phone Care Team Providers Care Reversing Mill Roller Name Role Phone Elier Malik NP Primary Care Provide r Anjelica Harris CLAIM TAKER Primary Care Provide r Encounter Details Date Type Department Care Team (Late Contact Info) Description 11/03/2019 Procedure Pass [facility] Endoscopy Admitting Dept Virtual Department [address] [place] [address] Social History Tobacco Use Types Packs/Day Years [...] Description 04/21/2025 8:30 AM EST Office Visit [facility] Gastroenterology Clinic [address] [place] [address] Unknown, Unknown, Lois Lainez NP [address] [place] [address] Scheduled Procedures Name Priority Associated Diagnoses Date/Ti me COLONOSCOPY Adenomatous polyp of colon, unspecified part of colon documented as of this encounter Visit Diagnoses Not on filedocumented in this encounter Care Teams Reversing Mill Roller Relationship Specialty Start Date End Date Elier Malik, LAURIE PCP - General 03/19/19 08/27/22 Anjelica Harris NP [address] [place] [address] PCP - General Nurse Practitioner 08/28/22 documented as of this encounter Additional Source Comments The information contained in this document represents components of the legal health record. It is not the complete legal health record.[facility]
--- OUTSIDE RECORDS SUMMARY | 2025-02-11 12:56 | XMS_ITS | Encounter Summary ---
Author Organization [employer] [facility] Address [address] [facility] 7t [place] [address] Care Team Providers Care Cdl Bulk Driver Name Role Phone Anjelica Harris Primary Care Provider Un available Eliane Lora Primary Care Provider [phone] Wiley Damon MD Unavailable Elizabeth Gu DO Primary Care Provider [phone] Encounter Details Date Type Department Care Team (Late st Contact Info) Description 04/05/2022 Abstract [facility] MEDICAL [address] [place] [address] Anjelica Harris FNP Social History Tobacco Use [...] Description 03/08/2025 9:00 AM EST Office Visit [facility] OPTOMETRY [address] [place] [address] Nohemy Downey OD [address] [place] [address] documented as of this encounter Visit Diagnoses Not on filedocumented in this encounter Care Teams Cdl Bulk Driver Relationship Specialty Start Date End Date Anjelica Harris FNP PCP - General Family Medicine 02/23/22 12/30/22 Eliane Lora PA PCP - General Family Medicine 12/31/22 12/05/23 Elizabeth Estrada DO [address] [place] [address] PCP - General Family Medicine 12/06/23 Wiley Damon MD [address] [place] [phone] Rheumatology 10/23/23 documented as of this encounter
--- OUTSIDE RECORDS SUMMARY | 2025-02-11 12:56 | XMS_ITS | Encounter Summary ---
Author Organization [employer] Address [address] [facility] [address] 7t [place] [address] Care Team Providers Care Director Of Clinical Services Name Role Phone Wiley Damon MD Unavailable Unavaila Elizabeth Figueroa DO Primary Care Provider [phone] Encounter Details Date Type Department Care Team (Late st Contact Info) Description 04/26/2024 Orders Only [place] [facility] MEDICAL [address] [place] [address] Provider, MD Dayanara Social History Tobacco Use [...] Start Date Job End Date Stay at [facility] Not on file Not on file Not on file documented as of this encounter Plan of Treatment Upcoming Encounters Date Type Department Care Team (Late st Contact Info) Description 03/08/2025 9:00 AM EST Office Visit [place] [facility] OPTOMETRY [address] [place], [place] [phone] Nohemy Downey, TYRONE [address] [place] [address] documented as of this encounter Procedures Procedure [...] Serum (04/22/2024 8:46 AM EST) Blood Result [facility] Provider MD LAB BLOOD ORDERABLES Liza l Result * AST (04/22/2024 8:46 AM EST) Blood Venous blood specimen / Unknown Result [facility] Provider LAB BLOOD ORDERABLES Liza l Result * ALT (04/22/2024 8:46 AM EST) Blood Venous blood specimen / Unknown Result [facility] Provider LAB BLOOD ORDERABLES Liza l Result * C-reactive Protein (04/22/2024 8:46 AM EST) Blood Venous blood specimen / Unknown Result [facility] Provider LAB BLOOD ORDERABLES Liza l Result * CBC auto differential (04/22/2024 8:46 AM EST) Blood Venous blood specimen / Unknown Result [facility] Provider LAB BLOOD ORDERABLES Liza l Result * Sed Rate by Modified [place] (04/22/2024 8:46 AM EST) Blood Venous blood specimen / Unknown Result [facility] Provider LAB BLOOD ORDERABLES Liza l Result documented in this encounter Visit Diagnoses Not on filedocumented in this encounter Additional Health Concerns Assessment Noted Time PHQ-9 Depression Total Score: 21 023 11:43 AM EDT documented as of this encounter Care Teams Director Of Clinical Services Relationship Specialty Start Date End Date Elizaebth Estrada DO [address] [place] [address] PCP - General Family Medicine 12/06/23 Wiley Damon MD [address] [place] [address] Rheumatology 10/23/23 documented as of this encounter
--- OUTSIDE RECORDS SUMMARY | 2025-02-11 12:56 | XMS_ITS | Encounter Summary ---
Author Organization [employer] [facility] Address [address] [facility] 7t [place] [address] Care Team Providers Care Hydrostatic Tester Name Role Phone Anjelica Harris Primary Care Provider Un available Eliane Lora Primary Care Provider [phone] Wiley Damon MD Unavailable Unavaila ble Elizabeth Estrada DO Primary Care Provider [phone] Encounter Details Date Type Department Care Team [...] Description 03/08/2025 9:00 AM EST Office Visit [place] [facility] OPTOMETRY [address] [place] [address] Nohemy Downey OD [address] [place] [address] documented as of this encounter Visit Diagnoses Not on filedocumented in this encounter Care Teams Hydrostatic Tester Relationship Specialty Start Date End Date Anjelica Harris FNP PCP - General Family Medicine 02/23/22 12/30/22 Eliane Lora PA PCP - General Family Medicine 12/31/22 12/05/23 Elizabeth Estrada DO [address] [place] [address] PCP - General Family Medicine 12/06/23 Wiley Damon MD [address] [place] [address] Rheumatology 10/23/23 documented as of this encounter
--- OUTSIDE RECORDS SUMMARY | 2025-02-11 12:57 | XMS_ITS | Encounter Summary ---
Author Organization [facility] Address [address] [facility] [address] [place] [address] Phone Care Team Providers Care Sales Counselor Name Role Phone Anjelica Harris NP Primary Care Provide r Encounter Details Date Type Department Care Team (Late st Contact Info) Description 10/19/2022 Procedure Pass OR Admitting Dept - [facility] Department [address] [place] [address] Social History Tobacco Use Types Packs/Day Years [...] Description 04/21/2025 8:30 AM EST Office Visit [facility] Gastroenterology Clinic [address] [place] [address] Unknown, Unknown, Lois Lainez NP [address] [place] [address] Scheduled Procedures Name Priority Associated Diagnoses Date/Ti me COLONOSCOPY Adenomatous polyp of colon, unspecified part of colon documented as of this encounter Visit Diagnoses Not on filedocumented in this encounter Care Teams Sales Counselor Relationship Specialty Start Date End Date Anjelica Harris NP [address] [place] [address] PCP - General Nurse Practitioner 08/28/22 documented as of this encounter Additional Source Comments The information contained in this document represents components of the legal health record. It is not the complete legal health record.[facility]
--- OUTSIDE RECORDS SUMMARY | 2025-02-11 12:57 | XMS_ITS | Encounter Summary ---
Author Organization [facility] Address [address] [place] [address] Phone Care Team Providers Care Director Occupational Name Role Phone Anjelica Harris LEGAL SERVICE SPECIALIST Primary Care Provide r Encounter Details Date Type Department Care Team (Late st Contact Info) Description 10/19/2022 Transcribe Orders [facility] Lab [address] [place] [address] Anjelica Harris, LAUREI [address] [place] [address] Social History Tobacco Use Types Packs/Day Years [...] Description 04/21/2025 8:30 AM EST Office Visit [facility] Gastroenterology Clinic [address] [place] [address] Unknown, Unknown, Lois Lainez, LAURIE [address] [place] [address] Scheduled Procedures Name Priority Associated Diagnoses Date/Ti me COLONOSCOPY Adenomatous polyp of colon, unspecified part of colon documented as of this encounter Visit Diagnoses Not on filedocumented in this encounter Care Teams Director Occupational Relationship Specialty Start Date End Date Anjelica Harris NP [address] [place] [address] PCP - General Nurse Practitioner 08/28/22 documented as of this encounter Additional Source Comments The information contained in this document represents components of the legal health record. It is not the complete legal health record.[facility]
--- OUTSIDE RECORDS SUMMARY | 2025-02-11 12:57 | XMS_ITS | Encounter Summary ---
Author Organization [facility] Address [address] [place] [address] [place] [address] Phone Care Team Providers Care Guide Alpine Name Role Phone Elier Malik DIRECT OF REAL ESTATE Primary Care Provide r Anjelica Harris DIRECT OF REAL ESTATE Primary Care Provide r Encounter Details Date Type Department Care Team (Late Contact Info) Description 03/13/2022 Prep for Surgery [facility] Orthopedics & Sports Medicine [address] [place] [address] Eri Méndez MD [address] [place] [address] Orthopedics & Sports Medicine, [facility] [place] [address] [email or web address] Social History Tobacco Use Types Packs/Day Years [...] Description 04/21/2025 8:30 AM EST Office Visit [facility] Gastroenterology Clinic [address] [place] [address] Unknown, Unknown, Lois Lainez, LAURIE [address] [place] [phone] Scheduled Procedures Name Priority Associated Diagnoses Date/Ti me COLONOSCOPY Adenomatous polyp of colon, unspecified part of colon documented as of this encounter Visit Diagnoses Not on filedocumented in this encounter Care Teams Guide Alpine Relationship Specialty Start Date End Date Elier Malik NP PCP - General 03/19/19 08/27/22 Anjelica Harris NP [address] [place] [address] PCP - General Nurse Practitioner 08/28/22 documented as of this encounter Additional Source Comments The information contained in this document represents components of the legal health record. It is not the complete legal health record.[facility]
== END 2025-02-11 11:17 | disposition home or self-care (01) ==
LOC: HO.RHES 10:43
PROVIDERS: PCP Family Medicine; Visit Provider Internal Medicine Rheumatology
DX: M15.4 Erosive (osteo)arthritis (principal); M47.816 Spondylosis without myelopathy or radiculopathy, lumbar region; L40.9 Psoriasis, unspecified; M54.2 Cervicalgia; Z79.899 Other long term (current) drug therapy
CPT/HCPCS: 99214; G2211

== ENCOUNTER 2025-02-11 10:42 | Outpatient (REF) | payer OTHER, SELFPAY ==
[2025-02-11 13:01] LABS: MANUAL DIFF FLAG NO
[2025-02-11 13:09] LABS: Hematocrit 44.5 % (37.0-47.0); Hemoglobin 15.0 g/dl (12.0-16.0); Imm Gran Abs Auto 0.00 X10*3/uL (0.00-0.03); Imm Gran Pct Auto 0.0 % (0.0-0.4); Lymphocytes Absolute Auto 1.7 X10*3/uL (1.2-4.9); Mean Corpuscular HGB Conc 33.7 g/dl (31.0-35.0); Mean Corpuscular Hemoglobin 30.1 pg (27.0-33.0); Mean Corpuscular Volume 89.4 fL (80.0-98.0); NRBC Abs Auto 0.000 X10*3/uL (0.0-0.012); NRBC Pct Auto 0.0 /100WBC (0.0-0.2); Platelet Count 286 X10*3/uL (160-400); Red Blood Count 4.98 X10*6/uL (4.20-5.50); White Blood Count 4.1 X10*3/uL (4.8-10.8)
--- OUTSIDE RECORDS SUMMARY | 2025-02-11 14:05 | XMS_ITS | Continuity of Care Document ---
Author Organization [place] - [facility], [facility] Address [address] [place] [address] Assessment Encounter Date Assessment Date Assessment LastModified by Organization Details LastModified Time 01/22/2025 01/22/2025 The patient has bilateral nasal obstruction, worse on the right side, with a history of prior nasal reconstruction surgeries. Examination reveals a deviated columella/ caudal septum and narrowing of the nasal cavity on the right side secondary to septal spur, with dry mucosa. I recommend trialing non-invasive devices to improve nasal airflow, such as Nozovent or Mute, which can be purchased online or at drugstores. I advised the patient to use Flonase daily to reduce inflammation and improve airflow, as it can shrink the soft tissue in the nasal cavity. Saline gel application was also recommended to address dryness and crusting. We did discuss that her history of previous surgery does increase the risk of complications with any future surgery including perforation and infection. We discussed that the caudal obstruction would require revision rhinoplasty to address. I will refer her to a colleague specializing in facial plastic surgery for further evaluation. Risks associated with additional nasal surgery, including infection and perforation, were discussed. [email or web address] Not available 01/25/2025 07:40:50 Plan of Treatment Reminders Order Date Submit Date Provider Last Modified By Organization Details Last Modified Time Details Appointments New Patient 15 2025 11:30A M LUIS ALFREDO ESTRADA MD Not available Not available Not available Lab None recorded . Referral None recorded . Procedures None recorded . Surgeries None recorded . Imaging None recorded . Medication Orders None recorded . Patient TargetsNo targets recorded. Patient Instructions Encounter Date Encounter Id Patient Instructions Last Modified By Organization Details Last Modified Time 01/22/2025 [id number] Use Flonase daily to reduce inflammation and improve nasal airflow. Apply saline gel to address dryness and crusting. [email or web address] Not available 01/25/2025 07:41:06 Please note: Parts of this encounter note have been generated by AI based on audio conversation. Patient consent was required prior to utilizing this technology. Content review was required prior to finalizing the note. [email or web address] Not available 01/22/2025 09:41:20 Reason for Referral None Reported. Problems Name Problem SNOMED Code Status Onset Date Resolution Date Notes Provider Name and Address Organization Details Recorded Time Deviated nasal septum 528681822 Active 025 FAMILIA ZAMBRANO MD [address] [facility],[place] [address], [place], [address] , [facility] - [facility] 07:37:52 Problem Notes None recorded. Procedures Surgical History Date Name Laterality Status Provider Name and Address Organization Details Recorded Time JMSNasal/Sinus Endoscopy completed FAMILIA ZAMBRANO MD [address] [facility],[place] [address], [place], [address], [facility] - [facility] 01/25/2025 07:37:44 Imaging Results None recorded. Procedure Notes None recorded. Medical Equipment None Reported. Medications Name Sig Start Date Stop Date Status Note LastModified by Organization Details LastModified Time celecoxib 200 mg capsule TAKE 1 CAPSULE BY MOUTH TWICE DAILY active Not Available Not Available No t Available azelastine 0.05 % eye drops INSTILL 1 DROP IN BOTH EYES TWICE DAILY active Not Available Not Available No t Available azithromyci n 250 mg tablet TAKE 2 TABLETS BY MOUTH FOR 1 DAY THEN TAKE 1 TABLET BY MOUTH DAILY FOR 4 DAYS 01/21 completed Not Available Not Available Not Available prednisone 20 mg tablet TAKE 1 TABLET BY MOUTH THREE TIMES DAILY FOR 5 DAYS THEN TAKE 1 TABLET BY MOUTH TWICE DAILY FOR 5 DAYS THEN TAKE 1 TABLET BY MOUTH DAILY FOR 5 DAYS active Not Available Not Available No t Available sulfasalazi ne 500 mg tablet,christie yed release TAKE 1 TABLET BY MOUTH TWICE DAILY active Not Available Not Available No t Available clobetasol 0.05 % topical cream APPLY TOPICALLY IF NEEDED EVERY MORNING AND AT BEDTIME FOR TCHING active Not Available Not Available No t Available baclofen 10 mg tablet TAKE 1 TABLET BY MOUTH DAILY NEEDED FOR MUSCLE SPASM active Not Available Not Available No t Available albuterol sulfate HFA 90 mcg/actuati on aerosol inhaler INHALE 2 PUFFS BY MOUTH EVERY 6 HOURS NEEDED FOR WHEEZING active Not Available Not Available No t Available tizanidine 2 mg capsule TAKE 1 CAPSULE BY MOUTH TWICE DAILY NEEDED FOR MUSCLE PAIN active Not Available Not Available No t Available Paxlovid 300 mg (150 mg x 2)-100 mg tablets in a dose pack TK 2 NIRMATREL VIR TS AND 1 RITONAVIR T TOGETHER PO TWICE DAILY FOR 5 DAYS active Not Available Not Available No t Available Zepbound 2.5 mg/0.5 mL subcutaneou s pen injector ADMINISTE R 2.5 MG UNDER THE SKIN 1 TIME EVERY WEEK active Not Available Not Available No t Available Vitals Date Recorded Body height Body mass index (BMI) Body weight Systolic And Diastolic Provider Name and Address Organization Details Last Updated DateTime 01/22/2025 160.02 cm 30.1 kg/m2 69723.7 g 118/70 mm[Hg] Mayte Ernst [place] - [facility] 01/22/2025 09:29:38 Social History None recorded. Functional Status Question Answer Note LastModified by Organizat ion Details LastModified Time What is your level of alcohol consumption? Occasional [email or web address] Information not available 01/22/2025 Mental Status None recorded. Family History Nothing Reported. Medical History Condition Response Allergies/Hayfever Y Arthritis Y Gynecological HistoryNo gynecological history recorded. Obstetrics History GPAL:G 0 P 0 0 0 0 Past Encounters Encounter ID Performer Location Encounter Start Date Encounter Closed Date Diagnosis/Indication Diagnosis SNOMED-CT Code Diagnosis ICD10 Code Diagnosis IMO Codes Diagnosis Note [id number] FAMILIA ZAMBRANO MD [facility] [address] [address] 01/22/2025 09:13:08 01/22/2025 09:45:45 Deviated nasal septum 420169093 J34.2 [id number] Health Concerns Section Related Observation LastModified by Organization Detai ls LastModified Time None Recorded Concern Status LastModified by Organization Details LastModified Time None Recorded Payers Encounter Date Sequence Insurance Name Policy Number Policy Mims Covered Member ID Mims Member ID Guarantor Name 01/22/2025 1 [facility] - DOS ON OR AFTER 2022 - MEDICARE [place]ANTAGE [place] (MEDICARE [place]ACEMENT/ADV ANTAGE - PPO) Akilah Chavis [id number] Akilah Chavis Notes Date Note Type Note Provider Name and Address Organization Details Recorded Time 01/22/2025 text/html Viviana Chavis is a 59-year-old female who presents for bilateral nasal obstruction, worse on the right side. She reports difficulty breathing through her nose for a very long time, which she attributes to prior facial trauma and subsequent nasal reconstruction surgeries performed in the early nineties. The trauma involved crushing of the cheek and displacement of the nose, which was surgically corrected twice through open rhinoplasty per her report. She denies any history of cartilage grafting during these procedures. She also reports a sensation of reduced pressure on the right side when blowing her nose and describes the nasal obstruction as feeling like there is nothing back there on the right side. 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 She has experienced sinus infections associated with colds but denies any allergies. She has a history of sleep apnea but was informed that it was not severe enough to warrant CPAP therapy. She quit smoking approximately five years ago and reports no issues with blood sugar levels. She recalls ear surgeries performed during childhood in the seventies due to recurrent ear infections, possibly related to secondhand smoke exposure. FAMILIA ZAMBRANO MD [address] [place] [address], [address], [place] - [facility] 01/25/2025 07:41:18 OBGyn Episode No OBEpisode recorded.
--- OUTSIDE RECORDS SUMMARY | 2025-02-11 14:05 | XMS_ITS | Data Portability ---
Author Organization [place] - [facility], All[facility] Address [address] [address] Assessment Encounter Date Assessment Date Assessment LastModified [...] which can be purchased online or at [employer]. I advised the patient to use Flonase [...] By Organization Details Last Modified Time 01/22/2025 [id number] Use Flonase daily to reduce inflammation and [...] Organization Details Recorded Time Deviated nasal septum 825245648 Active 025 FAMILIA ZAMBRANO MD [address] [facility] [address], [place], [address] , [facility] 07:37:52 Problem Notes None recorded. Procedures Surgical History Date Name Laterality Status Provider Name and Address Organization Details Recorded Time JMSNasal/Sinus Endoscopy completed FAMILIA ZAMBRANO MD [address] [place] [address],[place] [address], [place], [address], [facility] 01/25/2025 07:37:44 Imaging Results None recorded. Procedure [...] Updated DateTime 01/22/2025 160.02 cm 30.1 kg/m2 28061.7 g 118/70 mm[Hg] Mayte Ernst [place] - [facility] 01/22/2025 09:29:38 Social History None recorded. Functional Status Question Answer Note LastModified by Organizat ion Details LastModified Time What is your level of alcohol consumption? Occasional Information not available 01/22/2025 Mental Status None recorded. Family History Nothing Reported. Medical History Condition Response Allergies/Hayfever Y Arthritis Y Gynecological HistoryNo gynecological history recorded. Obstetrics History GPAL:G 0 P 0 0 0 0 Past Encounters Encounter ID Performer Location Encounter Start Date Encounter Closed Date Diagnosis/Indication Diagnosis SNOMED-CT Code Diagnosis ICD10 Code Diagnosis IMO Codes Diagnosis Note [id number] FAMILIA ZAMBRANO MD [facility] [address] [address] 01/22/2025 09:13:08 01/22/2025 09:45:45 Deviated nasal septum 025124618 J34.2 [id number] Health Concerns Section Related Observation LastModified by Organization Detai ls LastModified Time None Recorded Concern Status LastModified by Organization Details LastModified Time None Recorded Advance Directives Directive None Recorded Payers Insurance Date Sequence Insurance Name Policy Number Policy Mims Covered Member ID Mims Member ID Guarantor Name 01/22/2025 1 [place] [employer] Akilah Chavis [id number] Akilah Chavis 01/22/2025 1 [facility] - DOS ON OR AFTER 2022 - MEDICARE [place]ANTAGE [place]IC[place]/ADV ANTAGE - PPO) Akilah Chavis [id number] Akilah Chavis Notes Date Note Type Note [...] to secondhand smoke exposure. FAMILIA ZAMBRANO MD [address] [place] [address], [address], [place] - [facility] 01/25/2025 07:41:18 OBGyn Episode No OBEpisode recorded.
[2025-02-11 17:51] LABS: Appearance Urine Clear; Glucose Urine UA Negative (Negative); PH 7.0 (5.0-9.0); Specific Gravity - Urine <= 1.005 (1.005-1.025); UMIC TRIGGER UACC YES
[2025-02-11 17:54] LABS: Alanine Aminotransferase 23 U/L (0-31); Aspartate Amino Transferase 29 U/L (5-31); Estimated Glomerular Filt Rate > 60
[2025-02-11 18:15] LABS: Total Protein Urine Random < 7 mg/dL (<12)
[2025-02-12 19:54] LABS: SM/Ribonucleoprotein Ab <1.0 NEG AI (<1.0 NEG); Smith Protein <1.0 NEG AI (<1.0 NEG)
== END 2025-02-11 10:43 | disposition home or self-care (01) ==
LOC: HO.HKASLDS 10:42
PROVIDERS: PCP Family Medicine; Visit Provider Internal Medicine Rheumatology
DX: M15.4 Erosive (osteo)arthritis (principal); Z51.81 Encounter for therapeutic drug level monitoring; Z79.899 Other long term (current) drug therapy; M47.816 Spondylosis without myelopathy or radiculopathy, lumbar region; G89.29 Other chronic pain; L40.9 Psoriasis, unspecified; M54.2 Cervicalgia; R76.0 Raised antibody titer
CPT/HCPCS: 36415; 81001; 82565; 82570; 84156; 84450; 84460; 85025; 85652; 86140; 86160; 86225; 86235; 99212